=== PATIENT | male | born 1955 | race Caucasian/White ===

== ENCOUNTER 2017-05-22 21:04 | Inpatient (IN) | payer MEDICARE, MEDICAID ==
[~2017-05-22] VITALS: Ht 177.8 cm; Wt 140.6 kg
[~2017-05-22 21:04] MED LIST: CEPH500C5 PO
[2017-05-22 21:39] LABS: BASOPHILS % (AUTO) 0.2 % (0-1); EOSINOPHILS # (AUTO) 0.1 X10'3 (0-0.9); EOSINOPHILS % (AUTO) 0.9 % (0-6); HEMATOCRIT 36.6 % (42.0-52.0); HEMOGLOBIN 11.5 g/dl (14.0-17.9); LYMPHOCYTES # (AUTO) 1.7 X10'3 (1.1-4.8); LYMPHOCYTES % (AUTO) 21.5 % (21-51); MEAN CORPUSCULAR HEMOGLOBIN 30.3 PG (27.0-31.0); MEAN CORPUSCULAR HGB CONC 31.4 % (33.0-36.5); MEAN CORPUSCULAR VOLUME 96.6 FL (78-98); MEAN PLATELET VOLUME 8.7 FL (7.4-10.4); MONOCYTES # (AUTO) 0.5 X10'3 (0-0.9); MONOCYTES % (AUTO) 6.8 % (2-12); NEUTROPHILS # (AUTO) 5.6 X10'3 (1.8-7.7); NEUTROPHILS % (AUTO) 70.6 % (42-75); PLATELET COUNT 247 X10'3 (140-440); RED BLOOD COUNT 3.79 X10'6 (4.70-6.10); RED CELL DISTRIBUTION WIDTH 19.2 % (11.5-14.5)
[2017-05-22 21:51] LABS: PARTIAL THROMBOPLASTIN TIME 28 SECONDS (22-32); PROTHROMBIN TIME 10.4 SECONDS (9.0-12.0)
[2017-05-22] MEDS ORDERED: diltiazem-D5W 125mg/125ml 125 ML IV SCH (21:55)
[2017-05-22] MEDS ORDERED: diltiazem-D5W 100mg/100ml 100 ML IV SCH (22:00)
[2017-05-22 22:01] LABS: ALANINE AMINOTRANSFERASE 31 U/L (12-78); ALBUMIN 2.7 G/DL (3.4-5.0); ALBUMIN/GLOBULIN RATIO 0.6 (1.1-1.5); ALKALINE PHOSPHATASE 172 IU/L (46-116); ANION GAP 12 (8-16); ASPARTATE AMINO TRANSFERASE 32 U/L (10-37); BILIRUBIN,TOTAL 0.3 MG/DL (0.1-1.0); BLOOD UREA NITROGEN 22 MG/DL (7-18); BUN/CREATININE RATIO 12.4 (5.4-32.0); CALCIUM 8.1 MG/DL (8.5-10.1); CHLORIDE 104 MMOL/L (99-107); CREATININE 1.77 MG/DL (0.60-1.10); GLUCOSE 84 MG/DL (70-104); SODIUM 136 MMOL/L (135-145); TOTAL CARBON DIOXIDE 19.6 MMOL/L (24-32); TOTAL PROTEIN 7.1 G/DL (6.4-8.2); eGFR 39 ML/MIN
[2017-05-22 22:04] LABS: POTASSIUM 5.1 MMOL/L (3.5-5.1)
[2017-05-22] MEDS: diltiazem 5mg/ml 5ml inj. IV ONE ×2 (22:07→22:17)
[2017-05-22] MEDS ORDERED: adenosine 3mg/ml 2ml vial IV ONE (23:00)
[2017-05-22] MEDS ORDERED: digoxin 250mcg/ml 2ml ampule IV ONE (23:40)
[2017-05-23] MEDS ORDERED: digoxin 250mcg/ml 2ml ampule IV ONE (01:55)
[2017-05-23] MEDS ORDERED: amiodarone 150mg/dext, iso-os 100 ML IV ONE (02:35)
[2017-05-23] MEDS ORDERED: enoxaparin 100mg/ml syringe SUBCUT ONE (02:35)
[2017-05-23] MEDS: amiodarone/D5 450MG/250ML BAG 250 ML IV SCH (03:14)
[2017-05-23] MEDS ORDERED: furosemide 10 MG/1 ML 10ml inj IV ONE (05:40)
[2017-05-23] MEDS ORDERED: diltiazem 5mg/ml 5ml inj. IV ONE (06:55)
[2017-05-23] MEDS ORDERED: potassium Cl 20 mEq SR tablet PO PRN ×2 (07:40)
[2017-05-23] MEDS ORDERED: ondansetron/PF 4mg/2ml inj IV PRN (07:40)
[2017-05-23] MEDS ORDERED: mag hydrox/Alum hydrox/simeth 30ml oral suspension PO PRN (07:40)
[2017-05-23] MEDS ORDERED: magnesium 2GM in 50ml NS 50 ML IV PRN (07:40)
[2017-05-23] MEDS ORDERED: acetaminophen 325mg tablet PO PRN (07:40)
[2017-05-23] MEDS ORDERED: potassium Cl 40MEQ/NS 500ml 500 ML IV PRN ×2 (07:40)
[2017-05-23] MEDS ORDERED: magnesium 4gm in 100ml NS 100 ML IV PRN (07:40)
[2017-05-23] MEDS ORDERED: magnesium hydroxide 30ml (MOM) UD suspension PO PRN (07:40)
[2017-05-23] MEDS ORDERED: magnesium Cl slow-release 64mg tablet PO PRN (07:40)
[2017-05-23] MEDS: K and/or MAG REPLACEMENT MC SCH (08:00)
[2017-05-23] MEDS: DEXTROSE 5% IV SCH ×5 (08:00→11:43)
[2017-05-23] MEDS: DILTIAZEM IV SCH ×5 (08:00→11:43)
[2017-05-23] MEDS ORDERED: carvedilol 6.25mg tablet PO SCH (09:05)
[2017-05-23] MEDS ORDERED: methylPREDNISolone sod succ 125mg/2ml vial IV ONE (09:10)
[2017-05-23] MEDS ORDERED: methylPREDNISolone sod succ/PF 40mg inj. IV SCH (09:15)
[2017-05-23] MEDS ORDERED: heparin 10,000 units/1 ML INJ IV PRN (09:20)
[2017-05-23] MEDS ORDERED: heparin 10,000 units/1 ML INJ IV ONE (09:20)
[2017-05-23] MEDS: furosemide 40mg/4ml inj IV SCH ×3 (09:33→20:30)
[2017-05-23 09:40] LABS: ABG BASE EXCESS -8.8 mmol/L (-2.0-3.0); ABG HCO3 19.4 mmol/L (22.0-26.0); ABG OXYGEN SATURATION 96.2 % (95-98); ABG PCO2 (T) 51.1 mmHg (35.0-48.0); ABG PH (T) 7.197 (7.350-7.450); ABG PO2 (T) 105.8 mmHg (83-108); ALLEN'S TEST Positive; FCOHb 1.7 % (0.5-1.5); FLOW 3 L/min; FMetHb 0.2 % (0.3-1.12); FO2Hb 94.4 % (94-100); TOTAL HEMOGLOBIN 12.9 G/dl (14.0-18.0)
[2017-05-23 09:55] LABS: BASOPHILS % (AUTO) 0.3 % (0-1); EOSINOPHILS # (AUTO) 0.1 X10'3 (0-0.9); EOSINOPHILS % (AUTO) 1.8 % (0-6); HEMATOCRIT 38.5 % (42.0-52.0); HEMOGLOBIN 12.4 g/dl (14.0-17.9); LYMPHOCYTES # (AUTO) 1.4 X10'3 (1.1-4.8); LYMPHOCYTES % (AUTO) 19.1 % (21-51); MEAN CORPUSCULAR HEMOGLOBIN 30.9 PG (27.0-31.0); MEAN CORPUSCULAR HGB CONC 32.3 % (33.0-36.5); MEAN CORPUSCULAR VOLUME 95.9 FL (78-98); MEAN PLATELET VOLUME 8.8 FL (7.4-10.4); MONOCYTES # (AUTO) 0.5 X10'3 (0-0.9); MONOCYTES % (AUTO) 6.9 % (2-12); NEUTROPHILS # (AUTO) 5.3 X10'3 (1.8-7.7); NEUTROPHILS % (AUTO) 71.9 % (42-75); PLATELET COUNT 234 X10'3 (140-440); RED BLOOD COUNT 4.02 X10'6 (4.70-6.10); RED CELL DISTRIBUTION WIDTH 18.6 % (11.5-14.5); WHITE BLOOD COUNT 7.4 X10'3 (4.5-11.0)
[2017-05-23] MEDS ORDERED: ASPI-1265 PO (10:00)
[2017-05-23] MEDS ORDERED: TIOT18CA3 (10:00)
[2017-05-23] MEDS ORDERED: CARCD120C (10:00)
[2017-05-23] MEDS ORDERED: SIMV10TA6 (10:00)
[2017-05-23] MEDS ORDERED: METO100T14 (10:00)
[2017-05-23 10:04] LABS: PARTIAL THROMBOPLASTIN TIME 30 SECONDS (22-32); PROTHROMBIN TIME 10.2 SECONDS (9.0-12.0)
[2017-05-23] MEDS ORDERED: DILT120C62 PO (10:44)
[2017-05-23] MEDS ORDERED: METO-477 PO (10:45)
[2017-05-23] MEDS ORDERED: SIMV10TA2 PO (10:46)
[2017-05-23] MEDS ORDERED: TIOT18CA3 IH (10:48)
[2017-05-23 15:37] LABS: CLARITY,URINE Clear (Clear); COLOR,URINE STRAW (Yellow); GLUCOSE, URINE Negative (Neg); KETONES,URINE Negative (Neg); LEUKOCYTE ESTERASE ,URINE Negative (Neg); NITRITES, URINE Negative (Neg); OCCULT BLOOD,URINE Negative (Neg); PROTEIN,URINE Negative (Neg); UA COLLECTION TYPE CLN CATCH MIDSTREAM; UROBILINOGEN,URINE 0.2 E.U/dL (0.2-1.0)
[2017-05-23] MEDS: diltiazem 30mg tablet PO SCH ×2 (15:58→20:30)
[2017-05-23] MEDS: methylPREDNISolone sod succ 125mg/2ml vial IV SCH ×2 (16:18→23:49)
[2017-05-23 17:05] LABS: ABG HCO3 22.7 mmol/L (22.0-26.0); ABG OXYGEN SATURATION 94.8 % (95-98); ABG PCO2 (T) 47.6 mmHg (35.0-48.0); ABG PH (T) 7.296 (7.350-7.450); ABG PO2 (T) 82.5 mmHg (83-108); ALLEN'S TEST Positive; FCOHb 0.9 % (0.5-1.5); FLOW 3 L/min; FMetHb 0.4 % (0.3-1.12); FO2Hb 93.6 % (94-100); TOTAL HEMOGLOBIN 13.1 G/dl (14.0-18.0)
[2017-05-23 19:00] VITALS: BP 131/100
[2017-05-23 23:00] VITALS: BP 115/86
[2017-05-24] VITALS (13 sets, daily range): BP systolic 90–166; BP diastolic 69–123
[2017-05-24] MEDS: amiodarone/D5 450MG/250ML BAG 250 ML IV SCH (06:37)
[2017-05-24 07:46] LABS: BASOPHILS % (AUTO) 0 % (0-1); EOSINOPHILS % (AUTO) 0 % (0-6); HEMATOCRIT 38.1 % (42.0-52.0); HEMOGLOBIN 12.1 g/dl (14.0-17.9); LYMPHOCYTES # (AUTO) 0.4 X10'3 (1.1-4.8); LYMPHOCYTES % (AUTO) 3.1 % (21-51); MEAN CORPUSCULAR HEMOGLOBIN 30.3 PG (27.0-31.0); MEAN CORPUSCULAR HGB CONC 31.8 % (33.0-36.5); MEAN CORPUSCULAR VOLUME 95.3 FL (78-98); MEAN PLATELET VOLUME 9.8 FL (7.4-10.4); MONOCYTES # (AUTO) 0.1 X10'3 (0-0.9); MONOCYTES % (AUTO) 0.6 % (2-12); NEUTROPHILS # (AUTO) 11.3 X10'3 (1.8-7.7); NEUTROPHILS % (AUTO) 96.3 % (42-75); RED CELL DISTRIBUTION WIDTH 18.5 % (11.5-14.5); WHITE BLOOD COUNT 11.7 X10'3 (4.5-11.0)
[2017-05-24] MEDS ORDERED: haloperidol lactate 5mg/ml inj IM PRN (07:55)
[2017-05-24] MEDS ORDERED: LORazepam 2 mg/ml vial IV PRN (07:55)
[2017-05-24] MEDS ORDERED: dextrose 50%-water 50ml dispensing syringe IV PRN (07:55)
[2017-05-24] MEDS ORDERED: thiamine 100mg/ml 2ml inj. IV ONE (07:55)
[2017-05-24] MEDS ORDERED: haloperidol 5mg tablet PO PRN (07:55)
[2017-05-24] MEDS: methylPREDNISolone sod succ 125mg/2ml vial IV SCH ×2 (07:58→16:59)
[2017-05-24] MEDS: diltiazem 30mg tablet PO SCH ×3 (07:58→20:38)
[2017-05-24] MEDS: furosemide 40mg/4ml inj IV SCH ×3 (07:59→20:37)
[2017-05-24 08:02] LABS: ALANINE AMINOTRANSFERASE 31 U/L (12-78); ALBUMIN/GLOBULIN RATIO 0.6 (1.1-1.5); ALKALINE PHOSPHATASE 171 IU/L (46-116); ANION GAP 9 (8-16); ASPARTATE AMINO TRANSFERASE 25 U/L (10-37); BILIRUBIN,TOTAL 0.5 MG/DL (0.1-1.0); BLOOD UREA NITROGEN 29 MG/DL (7-18); BUN/CREATININE RATIO 15.9 (5.4-32.0); CALCIUM 8.6 MG/DL (8.5-10.1); CHLORIDE 100 MMOL/L (99-107); CREATININE 1.82 MG/DL (0.60-1.10); GLUCOSE 135 MG/DL (70-104); MAGNESIUM 1.7 MG/DL (1.5-2.4); PLATELET COUNT 284 X10'3 (140-440); POTASSIUM 4.3 MMOL/L (3.5-5.1); SODIUM 136 MMOL/L (135-145); TOTAL PROTEIN 8.1 G/DL (6.4-8.2); eGFR 38 ML/MIN
[2017-05-24] MEDS ORDERED: thiamine inj. 100 MG in normal saline 100ml IV soln 99 ML IV ONE (08:10)
[2017-05-24] MEDS: K and/or MAG REPLACEMENT MC SCH (08:19)
[2017-05-24] MEDS: apixaban 5mg tablet PO SCH ×2 (08:31→19:27)
[2017-05-24] MEDS: LORazepam 0.5 MG tablet PO PRN (16:58)
[2017-05-25] VITALS (10 sets, daily range): BP systolic 114–139; BP diastolic 42–85
[2017-05-25] MEDS: methylPREDNISolone sod succ 125mg/2ml vial IV SCH ×3 (00:18→15:06)
[2017-05-25] MEDS: LORazepam 0.5 MG tablet PO PRN (04:02)
[2017-05-25] MEDS: amiodarone/D5 450MG/250ML BAG 250 ML IV SCH ×2 (04:03→17:35)
[2017-05-25 05:58] LABS: BASOPHILS % (AUTO) 0 % (0-1); EOSINOPHILS % (AUTO) 0 % (0-6); HEMATOCRIT 34.8 % (42.0-52.0); HEMOGLOBIN 11.1 g/dl (14.0-17.9); LYMPHOCYTES # (AUTO) 0.3 X10'3 (1.1-4.8); LYMPHOCYTES % (AUTO) 1.7 % (21-51); MEAN CORPUSCULAR HEMOGLOBIN 30.3 PG (27.0-31.0); MEAN CORPUSCULAR HGB CONC 31.8 % (33.0-36.5); MEAN CORPUSCULAR VOLUME 95.4 FL (78-98); MONOCYTES # (AUTO) 0.1 X10'3 (0-0.9); MONOCYTES % (AUTO) 0.8 % (2-12); NEUTROPHILS # (AUTO) 15.3 X10'3 (1.8-7.7); NEUTROPHILS % (AUTO) 97.5 % (42-75); PLATELET COUNT 283 X10'3 (140-440); RED BLOOD COUNT 3.65 X10'6 (4.70-6.10); WHITE BLOOD COUNT 15.7 X10'3 (4.5-11.0)
[2017-05-25 06:23] LABS: ALANINE AMINOTRANSFERASE 26 U/L (12-78); ALBUMIN 2.8 G/DL (3.4-5.0); ALBUMIN/GLOBULIN RATIO 0.7 (1.1-1.5); ALKALINE PHOSPHATASE 136 IU/L (46-116); ANION GAP 11 (8-16); ASPARTATE AMINO TRANSFERASE 18 U/L (10-37); BILIRUBIN,TOTAL 0.4 MG/DL (0.1-1.0); BLOOD UREA NITROGEN 34 MG/DL (7-18); BUN/CREATININE RATIO 19.7 (5.4-32.0); CALCIUM 7.9 MG/DL (8.5-10.1); CHLORIDE 98 MMOL/L (99-107); CREATININE 1.73 MG/DL (0.60-1.10); GLUCOSE 139 MG/DL (70-104); MAGNESIUM 1.5 MG/DL (1.5-2.4); POTASSIUM 3.9 MMOL/L (3.5-5.1); SODIUM 137 MMOL/L (135-145); TOTAL CARBON DIOXIDE 28.4 MMOL/L (24-32); eGFR 40 ML/MIN
[2017-05-25] MEDS: K and/or MAG REPLACEMENT MC SCH (06:38)
[2017-05-25] MEDS: diltiazem 30mg tablet PO SCH ×3 (07:43→21:33)
[2017-05-25] MEDS: furosemide 40mg/4ml inj IV SCH ×3 (07:43→21:33)
[2017-05-25] MEDS: apixaban 5mg tablet PO SCH ×2 (07:43→19:49)
[2017-05-25] MEDS: levalbuterol 0.63mg/3ml nebule IH SCH ×2 (14:18→20:26)
[2017-05-25] MEDS: carvedilol 6.25mg tablet PO SCH (19:49)
[2017-05-26] VITALS (10 sets, daily range): BP systolic 105–141; BP diastolic 51–98
[2017-05-26] MEDS: methylPREDNISolone sod succ 125mg/2ml vial IV SCH ×3 (00:22→16:00)
[2017-05-26] MEDS: levalbuterol 0.63mg/3ml nebule IH SCH ×2 (03:29→14:47)
[2017-05-26 05:06] LABS: BASOPHILS % (AUTO) 0 % (0-1); EOSINOPHILS # (AUTO) 0.3 X10'3 (0-0.9); EOSINOPHILS % (AUTO) 1.8 % (0-6); HEMATOCRIT 35.2 % (42.0-52.0); HEMOGLOBIN 11.2 g/dl (14.0-17.9); LYMPHOCYTES # (AUTO) 0.2 X10'3 (1.1-4.8); LYMPHOCYTES % (AUTO) 1.3 % (21-51); MEAN CORPUSCULAR HEMOGLOBIN 30.1 PG (27.0-31.0); MEAN CORPUSCULAR VOLUME 94.3 FL (78-98); MEAN PLATELET VOLUME 8.9 FL (7.4-10.4); MONOCYTES # (AUTO) 0.2 X10'3 (0-0.9); MONOCYTES % (AUTO) 1.1 % (2-12); NEUTROPHILS # (AUTO) 15.6 X10'3 (1.8-7.7); NEUTROPHILS % (AUTO) 95.8 % (42-75); PLATELET COUNT 296 X10'3 (140-440); RED BLOOD COUNT 3.73 X10'6 (4.70-6.10); RED CELL DISTRIBUTION WIDTH 18.7 % (11.5-14.5); WHITE BLOOD COUNT 16.3 X10'3 (4.5-11.0)
[2017-05-26 05:40] LABS: ALANINE AMINOTRANSFERASE 36 U/L (12-78); ALBUMIN/GLOBULIN RATIO 0.7 (1.1-1.5); ALKALINE PHOSPHATASE 131 IU/L (46-116); ANION GAP 9 (8-16); ASPARTATE AMINO TRANSFERASE 26 U/L (10-37); BILIRUBIN,TOTAL 0.4 MG/DL (0.1-1.0); BLOOD UREA NITROGEN 45 MG/DL (7-18); BUN/CREATININE RATIO 23.8 (5.4-32.0); CALCIUM 7.5 MG/DL (8.5-10.1); CHLORIDE 98 MMOL/L (99-107); CREATININE 1.89 MG/DL (0.60-1.10); GLUCOSE 156 MG/DL (70-104); MAGNESIUM 1.4 MG/DL (1.5-2.4); POTASSIUM 3.5 MMOL/L (3.5-5.1); SODIUM 140 MMOL/L (135-145); TOTAL CARBON DIOXIDE 32.7 MMOL/L (24-32); TOTAL PROTEIN 7.1 G/DL (6.4-8.2); eGFR 36 ML/MIN
[2017-05-26] MEDS: furosemide 40mg/4ml inj IV SCH ×2 (07:29→13:15)
[2017-05-26] MEDS: carvedilol 6.25mg tablet PO SCH (07:29)
[2017-05-26] MEDS: apixaban 5mg tablet PO SCH (07:29)
[2017-05-26] MEDS: diltiazem 30mg tablet PO SCH ×2 (07:30→13:15)
[2017-05-26] MEDS ORDERED: LORazepam 1 MG tablet PO PRN (07:55)
[2017-05-26] MEDS ORDERED: LORazepam 2 mg/ml vial IV PRN (07:55)
[2017-05-26] MEDS: K and/or MAG REPLACEMENT MC SCH (08:00)
[2017-05-26] MEDS: amiodarone/D5 450MG/250ML BAG 250 ML IV SCH (10:05)
[2017-05-26] MEDS ORDERED: amiodarone 200mg tablet PO SCH (10:33)
[2017-05-26] MEDS ORDERED: APIX5TAB3 PO (12:10)
[2017-05-26] MEDS ORDERED: HCTZ25T PO ×2 (12:10)
[2017-05-26] MEDS ORDERED: FURO-149 PO (12:10)
[2017-05-26] MEDS ORDERED: CARV6.253 PO (12:10)
[2017-05-26] MEDS ORDERED: METH4TAB81 PO (12:10)
[2017-05-26] MEDS ORDERED: AMIO200T57 PO (12:10)
[2017-05-26] MEDS ORDERED: LEVA0.6319 IH (12:10)
[2017-05-26] MEDS ORDERED: DILT30TA5 PO (12:10)
[2017-05-28] MEDS ORDERED: LORazepam 2 mg/ml vial IV PRN (07:55)
[2017-05-28] MEDS ORDERED: LORazepam 1 MG tablet PO PRN (07:55)
== END 2017-05-26 16:27 | disposition home health service (06) | DRG 308 ==
LOC: ER 21:05 → ED HOLD 05-23 07:39 → EDBEDREQ 05-23 16:04 → PCU 3S 05-23 16:40
PROVIDERS: ADMIT Internal Medicine; ATTEND Internal Medicine
PROC: 5A09357 Assistance with Respiratory Ventilation, Less than 24 Consecutive Hours, Continuous Positive Airway Pressure (ICD-10-PCS; principal; 2017-05-23)
PROC: CB121ZZ Planar Nuclear Medicine Imaging of Lungs and Bronchi using Technetium 99m (Tc-99m) (ICD-10-PCS; 2017-05-23)
DX: I48.92 Unspecified atrial flutter (principal); I50.23 Acute on chronic systolic (congestive) heart failure; E87.4 Mixed disorder of acid-base balance; Z95.1 Presence of aortocoronary bypass graft; I95.9 Hypotension, unspecified; Z68.41 Body mass index [BMI] 40.0-44.9, adult; J44.1 Chronic obstructive pulmonary disease with (acute) exacerbation; I48.2 Chronic atrial fibrillation; E11.9 Type 2 diabetes mellitus without complications; E66.9 Obesity, unspecified; F17.200 Nicotine dependence, unspecified, uncomplicated; I25.10 Atherosclerotic heart disease of native coronary artery without angina pectoris; Z88.8 Allergy status to other drugs, medicaments and biological substances; Z79.899 Other long term (current) drug therapy; Z79.82 Long term (current) use of aspirin
CPT/HCPCS: 36415; 36600; 71045; 78582; 80053; 81003; 82803; 82948; 83735; 83880; 84484; 85018; 85025; 85610; 85730; 87070; 93005; 93306; 93970; 94640; 94660; 94760; 96365; 96372; 96375; 99291; A6212; A6213; A9539; A9540; J0153; J0282; J1160; J1644; J1650; J1940; J2920; J2930; J3411; J3490; J7030; J7614

== ENCOUNTER 2017-10-02 16:51 | Emergency (ER) | payer MEDICARE, MEDICAID ==
[~2017-10-02] VITALS: Ht 604 cm; Wt 148.2 kg
[~2017-10-02 16:51] MED LIST changes: +AMIO200T40 PO; +APIX5TAB3 PO; +ASPI-1265 PO; +CARV6.253 PO; -CEPH500C5 PO; +DILT30TA5 PO; +FURO-149 PO; +GABA-532 PO; +HCTZ25T PO; +LEVA0.6319 IH; +METO-477 PO; +SIMV10TA2 PO; +TIOT18CA3 IH
[2017-10-02 17:32] LABS: HEMATOCRIT 28.5 % (42.0-52.0); HEMOGLOBIN 8.5 g/dl (14.0-17.9); MEAN CORPUSCULAR HEMOGLOBIN 26.5 PG (27.0-31.0); MEAN CORPUSCULAR HGB CONC 29.8 % (33.0-36.5); MEAN CORPUSCULAR VOLUME 88.9 FL (78-98); MEAN PLATELET VOLUME 8.9 FL (7.4-10.4); PLATELET COUNT 316 X10'3 (140-440); RED BLOOD COUNT 3.21 X10'6 (4.70-6.10); RED CELL DISTRIBUTION WIDTH 20.8 % (11.5-14.5); WHITE BLOOD COUNT 7.1 X10'3 (4.5-11.0)
[2017-10-02 17:42] LABS: INR 1.1 INR; PARTIAL THROMBOPLASTIN TIME 29 SECONDS (22-32); PROTHROMBIN TIME 10.9 SECONDS (9.0-12.0)
[2017-10-02 17:56] LABS: TOTAL CELLS COUNTED 100
[2017-10-02 17:57] LABS: ANISOCYTOSIS 3+; HYPOCHROMASIA 1+; PLATELET ESTIMATE NORMAL; POIKILOCYTOSIS 1+; POLYCHROMASIA 1+
[2017-10-02 18:06] LABS: ALANINE AMINOTRANSFERASE 16 U/L (12-78); ALBUMIN/GLOBULIN RATIO 0.8 (1.1-1.5); ALKALINE PHOSPHATASE 198 IU/L (46-116); ANION GAP 9 (8-16); ASPARTATE AMINO TRANSFERASE 20 U/L (10-37); BILIRUBIN,TOTAL 0.4 MG/DL (0.1-1.0); BLOOD UREA NITROGEN 26 MG/DL (7-18); BUN/CREATININE RATIO 11.8 (5.4-32.0); CALCIUM 8.1 MG/DL (8.5-10.1); CHLORIDE 105 MMOL/L (99-107); GLUCOSE 86 MG/DL (70-104); POTASSIUM 3.9 MMOL/L (3.5-5.1); SODIUM 142 MMOL/L (135-145); TOTAL PROTEIN 6.7 G/DL (6.4-8.2); eGFR 30 ML/MIN
[2017-10-02 18:13] LABS: MAGNESIUM 1.9 MG/DL (1.5-2.4)
[2017-10-02] MEDS ORDERED: furosemide 10 MG/1 ML 10ml inj IV ONE (18:45)
[2017-10-02 18:57] VITALS: BP 117/62
== END 2017-10-02 19:41 | disposition home or self-care (01) ==
LOC: ER 16:52
DX: I50.9 Heart failure, unspecified (principal); I48.91 Unspecified atrial fibrillation; I25.10 Atherosclerotic heart disease of native coronary artery without angina pectoris; R22.33 Localized swelling, mass and lump, upper limb, bilateral; R22.43 Localized swelling, mass and lump, lower limb, bilateral; Z95.1 Presence of aortocoronary bypass graft; Z88.8 Allergy status to other drugs, medicaments and biological substances; Z79.82 Long term (current) use of aspirin; Z79.899 Other long term (current) drug therapy
CPT/HCPCS: 36415; 71045; 80053; 80162; 83735; 83880; 84484; 85025; 85610; 85730; 93005; 96374; 99285; J1940; J7030

== ENCOUNTER 2017-10-07 12:49 | Inpatient (IN) | payer MEDICARE, MEDICAID ==
[~2017-10-07] VITALS: Ht 177.8 cm; Wt 145.0 kg
[2017-10-07] MEDS ORDERED: furosemide 40mg/4ml inj IV ONE (13:05)
[2017-10-07 13:26] LABS: BASOPHILS # (AUTO) 0.1 X10'3 (0-0.2); BASOPHILS % (AUTO) 0.9 % (0-1); EOSINOPHILS # (AUTO) 0.2 X10'3 (0-0.9); EOSINOPHILS % (AUTO) 3.1 % (0-6); HEMATOCRIT 29.2 % (42.0-52.0); LYMPHOCYTES # (AUTO) 1.2 X10'3 (1.1-4.8); LYMPHOCYTES % (AUTO) 14.7 % (21-51); MEAN CORPUSCULAR HEMOGLOBIN 27.3 PG (27.0-31.0); MEAN PLATELET VOLUME 8.4 FL (7.4-10.4); MONOCYTES # (AUTO) 0.6 X10'3 (0-0.9); MONOCYTES % (AUTO) 7.6 % (2-12); NEUTROPHILS # (AUTO) 5.8 X10'3 (1.8-7.7); NEUTROPHILS % (AUTO) 73.7 % (42-75); PLATELET COUNT 324 X10'3 (140-440); RED BLOOD COUNT 3.31 X10'6 (4.70-6.10); WHITE BLOOD COUNT 7.8 X10'3 (4.5-11.0)
[2017-10-07 13:35] LABS: INR 1.4 INR; PARTIAL THROMBOPLASTIN TIME 38 SECONDS (22-32); PROTHROMBIN TIME 13.9 SECONDS (9.0-12.0)
[2017-10-07 13:38] LABS: CLARITY,URINE CLEAR (Clear); COLOR,URINE STRAW (Yellow); GLUCOSE, URINE NEGATIVE (Neg); KETONES,URINE NEGATIVE (Neg); LEUKOCYTE ESTERASE ,URINE NEGATIVE (Neg); NITRITES, URINE NEGATIVE (Neg); OCCULT BLOOD,URINE NEGATIVE (Neg); PH,URINE 5.5 (4.8-8.0); PROTEIN,URINE NEGATIVE (Neg); UROBILINOGEN,URINE 0.2 E.U/dL (0.2-1.0)
[2017-10-07 13:39] LABS: ALANINE AMINOTRANSFERASE 10 U/L (12-78); ALBUMIN 3.2 G/DL (3.4-5.0); ALBUMIN/GLOBULIN RATIO 0.7 (1.1-1.5); ALKALINE PHOSPHATASE 209 IU/L (46-116); ANION GAP 9 (8-16); ASPARTATE AMINO TRANSFERASE 14 U/L (10-37); BILIRUBIN,TOTAL 0.4 MG/DL (0.1-1.0); BLOOD UREA NITROGEN 39 MG/DL (7-18); BUN/CREATININE RATIO 16.8 (5.4-32.0); CALCIUM 8.2 MG/DL (8.5-10.1); CHLORIDE 101 MMOL/L (99-107); CREATININE 2.32 MG/DL (0.60-1.10); GLUCOSE 101 MG/DL (70-104); POTASSIUM 3.2 MMOL/L (3.5-5.1); SODIUM 143 MMOL/L (135-145); TOTAL CARBON DIOXIDE 33.1 MMOL/L (24-32); TOTAL PROTEIN 7.5 G/DL (6.4-8.2); eGFR 28 ML/MIN
[2017-10-07 13:40] LABS: UA COLLECTION TYPE URINAL
[2017-10-07 14:20] LABS: PLATELET ESTIMATE NORMAL
[2017-10-07 14:21] LABS: ANISOCYTOSIS 3+; POIKILOCYTOSIS 1+
[2017-10-07 14:22] LABS: HYPOCHROMASIA 2+; POLYCHROMASIA FEW
[2017-10-07 14:23] LABS: ACANTHOCYTES FEW; LARGE PLATELETS FEW
[2017-10-07 14:24] LABS: SCHISTOCYTES FEW
[2017-10-07 14:25] LABS: MICROCYTOSIS FEW
[2017-10-07 14:47] LABS: ELLIPTOCYTES FEW; STOMATOCYTES FEW
[2017-10-07] MEDS ORDERED: mag hydrox/Alum hydrox/simeth 30ml oral suspension PO PRN (15:10)
[2017-10-07] MEDS: potassium Cl 20 mEq SR tablet PO SCH (17:49)
[2017-10-07 19:50] VITALS: BP 117/72
[2017-10-07] MEDS: carvedilol 6.25mg tablet PO SCH (20:09)
[2017-10-07] MEDS: furosemide 40mg/4ml inj IV SCH (20:09)
[2017-10-07] MEDS: amiodarone 200mg tablet PO SCH (20:09)
[2017-10-07] MEDS: apixaban 5mg tablet PO SCH (20:26)
[2017-10-07 23:00] VITALS: BP 108/73
[2017-10-08 02:04] LABS: BASOPHILS % (AUTO) 0.2 % (0-1); EOSINOPHILS # (AUTO) 0.2 X10'3 (0-0.9); EOSINOPHILS % (AUTO) 3.2 % (0-6); HEMATOCRIT 27.8 % (42.0-52.0); HEMOGLOBIN 8.5 g/dl (14.0-17.9); LYMPHOCYTES # (AUTO) 0.9 X10'3 (1.1-4.8); LYMPHOCYTES % (AUTO) 13.1 % (21-51); MEAN CORPUSCULAR HEMOGLOBIN 27.1 PG (27.0-31.0); MEAN CORPUSCULAR HGB CONC 30.6 % (33.0-36.5); MEAN CORPUSCULAR VOLUME 88.6 FL (78-98); MONOCYTES # (AUTO) 0.7 X10'3 (0-0.9); MONOCYTES % (AUTO) 9.6 % (2-12); NEUTROPHILS # (AUTO) 5.3 X10'3 (1.8-7.7); NEUTROPHILS % (AUTO) 73.9 % (42-75); PLATELET COUNT 297 X10'3 (140-440); RED BLOOD COUNT 3.14 X10'6 (4.70-6.10); WHITE BLOOD COUNT 7.2 X10'3 (4.5-11.0)
[2017-10-08 02:25] LABS: ALBUMIN 2.9 G/DL (3.4-5.0); ANION GAP 3 (8-16); BLOOD UREA NITROGEN 37 MG/DL (7-18); BUN/CREATININE RATIO 17.8 (5.4-32.0); CALCIUM 8.3 MG/DL (8.5-10.1); CHLORIDE 101 MMOL/L (99-107); CREATININE 2.08 MG/DL (0.60-1.10); GLUCOSE 93 MG/DL (70-104); POTASSIUM 3.3 MMOL/L (3.5-5.1); SODIUM 140 MMOL/L (135-145); TOTAL CARBON DIOXIDE 36.3 MMOL/L (24-32); eGFR 32 ML/MIN
[2017-10-08 02:46] LABS: ANISOCYTOSIS 3+; HYPOCHROMASIA 1+; MICROCYTOSIS 1+; PLATELET ESTIMATE NORMAL; POLYCHROMASIA 1+; SPHEROCYTES 1+; TARGET CELLS 2+
[2017-10-08 03:00] VITALS: BP 109/69
[2017-10-08 06:00] VITALS: BP 102/65
[2017-10-08] MEDS: furosemide 40mg/4ml inj IV SCH ×2 (08:42→19:30)
[2017-10-08] MEDS: carvedilol 6.25mg tablet PO SCH ×2 (08:42→19:30)
[2017-10-08] MEDS: potassium Cl 20 mEq SR tablet PO SCH (08:42)
[2017-10-08] MEDS: apixaban 5mg tablet PO SCH ×2 (08:43→19:30)
[2017-10-08] MEDS: amiodarone 200mg tablet PO SCH ×2 (08:43→19:30)
[2017-10-08] MEDS ORDERED: POTA10TA52 (09:58)
[2017-10-08] MEDS ORDERED: HYDR-569 PO (09:58)
[2017-10-08] MEDS ORDERED: OMEP40CA37 PO (09:58)
[2017-10-08 11:00] VITALS: BP 120/88
[2017-10-08] MEDS ORDERED: furosemide 40mg tablet PO SCH (11:00)
[2017-10-08] MEDS: pantoprazole 40mg Tablet.DR PO SCH (11:30)
[2017-10-08] MEDS: diltiazem 30mg tablet PO SCH ×2 (13:31→20:58)
[2017-10-08] MEDS: gabapentin 300mg capsule PO SCH ×2 (13:31→20:58)
[2017-10-08] MEDS: aspirin 81mg tab.chew PO SCH (13:31)
[2017-10-08] MEDS: ipratropium 0.5 MG/2.5ML nebule IH SCH ×2 (14:43→20:08)
[2017-10-08] MEDS: levalbuterol 0.63mg/3ml nebule IH SCH ×2 (14:44→20:08)
[2017-10-08 15:00] VITALS: BP 111/71
[2017-10-08 19:00] VITALS: BP 96/62
[2017-10-08] MEDS ORDERED: potassium Cl 40MEQ/NS 500ml 500 ML IV PRN ×2 (19:25)
[2017-10-08] MEDS ORDERED: potassium Cl 20 mEq SR tablet PO PRN (19:25)
[2017-10-08] MEDS: potassium Cl 20 mEq SR tablet PO PRN (20:57)
[2017-10-08] MEDS: atorvastatin 10mg tablet PO SCH (20:57)
[2017-10-08 23:00] VITALS: BP 115/79
[2017-10-08] MEDS: HYDROcodone/acetaminophen 5mg/325mg tablet PO PRN (23:04)
[2017-10-09] MEDS: potassium Cl 20 mEq SR tablet PO PRN ×2 (01:26→19:59)
[2017-10-09 03:00] VITALS: BP 102/72
[2017-10-09] MEDS: ipratropium 0.5 MG/2.5ML nebule IH SCH ×4 (03:06→20:11)
[2017-10-09] MEDS: levalbuterol 0.63mg/3ml nebule IH SCH ×4 (03:06→20:11)
[2017-10-09 05:37] LABS: BASOPHILS % (AUTO) 0.3 % (0-1); EOSINOPHILS # (AUTO) 0.2 X10'3 (0-0.9); EOSINOPHILS % (AUTO) 3.1 % (0-6); HEMATOCRIT 26.2 % (42.0-52.0); HEMOGLOBIN 8.1 g/dl (14.0-17.9); LYMPHOCYTES # (AUTO) 1.2 X10'3 (1.1-4.8); LYMPHOCYTES % (AUTO) 16.9 % (21-51); MEAN CORPUSCULAR HGB CONC 30.9 % (33.0-36.5); MEAN CORPUSCULAR VOLUME 87.3 FL (78-98); MEAN PLATELET VOLUME 8.7 FL (7.4-10.4); MONOCYTES # (AUTO) 0.7 X10'3 (0-0.9); MONOCYTES % (AUTO) 10.1 % (2-12); NEUTROPHILS # (AUTO) 4.9 X10'3 (1.8-7.7); NEUTROPHILS % (AUTO) 69.6 % (42-75); PLATELET COUNT 284 X10'3 (140-440); WHITE BLOOD COUNT 7.1 X10'3 (4.5-11.0)
[2017-10-09 05:51] LABS: ALBUMIN 2.9 G/DL (3.4-5.0); ANION GAP 4 (8-16); BLOOD UREA NITROGEN 33 MG/DL (7-18); BUN/CREATININE RATIO 18.5 (5.4-32.0); CALCIUM 8.7 MG/DL (8.5-10.1); CHLORIDE 99 MMOL/L (99-107); CREATININE 1.78 MG/DL (0.60-1.10); GLUCOSE 81 MG/DL (70-104); POTASSIUM 3.2 MMOL/L (3.5-5.1); SODIUM 142 MMOL/L (135-145); TOTAL CARBON DIOXIDE 39.2 MMOL/L (24-32); eGFR 39 ML/MIN
[2017-10-09 06:00] VITALS: BP 112/70
[2017-10-09] MEDS: aspirin 81mg tab.chew PO SCH (07:52)
[2017-10-09] MEDS: furosemide 40mg/4ml inj IV SCH ×2 (07:52→19:58)
[2017-10-09] MEDS: gabapentin 300mg capsule PO SCH ×3 (07:53→19:58)
[2017-10-09] MEDS: diltiazem 30mg tablet PO SCH ×3 (07:53→19:59)
[2017-10-09] MEDS: apixaban 5mg tablet PO SCH ×2 (07:53→19:58)
[2017-10-09] MEDS: pantoprazole 40mg Tablet.DR PO SCH (07:54)
[2017-10-09] MEDS: potassium Cl 20 mEq SR tablet PO SCH (07:54)
[2017-10-09] MEDS: amiodarone 200mg tablet PO SCH ×2 (07:55→19:58)
[2017-10-09] MEDS: carvedilol 6.25mg tablet PO SCH ×2 (07:55→19:58)
[2017-10-09 11:00] VITALS: BP 112/70
[2017-10-09 15:00] VITALS: BP 112/70
[2017-10-09 19:00] VITALS: BP 107/54
[2017-10-09] MEDS: HYDROcodone/acetaminophen 5mg/325mg tablet PO PRN (19:58)
[2017-10-09] MEDS: atorvastatin 10mg tablet PO SCH (19:59)
[2017-10-09 23:00] VITALS: BP 93/59
[2017-10-10] MEDS: potassium Cl 20 mEq SR tablet PO PRN ×2 (00:55→05:08)
[2017-10-10] MEDS: HYDROcodone/acetaminophen 5mg/325mg tablet PO PRN (00:56)
[2017-10-10 03:00] VITALS: BP 125/84
[2017-10-10] MEDS: levalbuterol 0.63mg/3ml nebule IH SCH ×4 (03:15→20:56)
[2017-10-10] MEDS: ipratropium 0.5 MG/2.5ML nebule IH SCH ×4 (03:15→20:56)
[2017-10-10 05:50] LABS: BASOPHILS % (AUTO) 0.1 % (0-1); EOSINOPHILS # (AUTO) 0.3 X10'3 (0-0.9); EOSINOPHILS % (AUTO) 3.4 % (0-6); HEMATOCRIT 26.8 % (42.0-52.0); HEMOGLOBIN 8.2 g/dl (14.0-17.9); LYMPHOCYTES # (AUTO) 0.9 X10'3 (1.1-4.8); LYMPHOCYTES % (AUTO) 8.8 % (21-51); MEAN CORPUSCULAR HEMOGLOBIN 26.7 PG (27.0-31.0); MEAN CORPUSCULAR HGB CONC 30.5 % (33.0-36.5); MEAN CORPUSCULAR VOLUME 87.4 FL (78-98); MONOCYTES # (AUTO) 1.1 X10'3 (0-0.9); MONOCYTES % (AUTO) 10.7 % (2-12); NEUTROPHILS # (AUTO) 7.7 X10'3 (1.8-7.7); PLATELET COUNT 292 X10'3 (140-440); RED BLOOD COUNT 3.06 X10'6 (4.70-6.10); RED CELL DISTRIBUTION WIDTH 22.3 % (11.5-14.5)
[2017-10-10 06:00] VITALS: BP 103/59
[2017-10-10 06:05] LABS: ANION GAP 2 (8-16); BLOOD UREA NITROGEN 31 MG/DL (7-18); BUN/CREATININE RATIO 18.5 (5.4-32.0); CALCIUM 8.9 MG/DL (8.5-10.1); CHLORIDE 97 MMOL/L (99-107); CREATININE 1.68 MG/DL (0.60-1.10); GLUCOSE 103 MG/DL (70-104); POTASSIUM 3.7 MMOL/L (3.5-5.1); SODIUM 139 MMOL/L (135-145); TOTAL CARBON DIOXIDE 39.9 MMOL/L (24-32); eGFR 41 ML/MIN
[2017-10-10 07:33] LABS: ANISOCYTOSIS 3+; PLATELET ESTIMATE NORMAL; TARGET CELLS 1+
[2017-10-10 07:34] LABS: HYPOCHROMASIA 2+
[2017-10-10 07:35] LABS: ELLIPTOCYTES FEW
[2017-10-10 07:36] LABS: POLYCHROMASIA 2+
[2017-10-10] MEDS: potassium Cl 20 mEq SR tablet PO SCH (07:58)
[2017-10-10] MEDS: furosemide 40mg/4ml inj IV SCH ×2 (07:58→20:06)
[2017-10-10] MEDS: amiodarone 200mg tablet PO SCH ×2 (07:58→20:06)
[2017-10-10] MEDS: pantoprazole 40mg Tablet.DR PO SCH (07:58)
[2017-10-10] MEDS: diltiazem 30mg tablet PO SCH ×3 (07:58→20:07)
[2017-10-10] MEDS: apixaban 5mg tablet PO SCH ×2 (07:58→20:07)
[2017-10-10] MEDS: carvedilol 6.25mg tablet PO SCH ×2 (07:58→20:07)
[2017-10-10] MEDS: aspirin 81mg tab.chew PO SCH (07:58)
[2017-10-10] MEDS: gabapentin 300mg capsule PO SCH ×3 (07:58→20:06)
[2017-10-10 11:00] VITALS: BP 153/100
[2017-10-10] MEDS: acetaminophen 325mg tablet PO PRN ×2 (11:38→22:58)
[2017-10-10 15:00] VITALS: BP 111/65
[2017-10-10 19:00] VITALS: BP 126/78
[2017-10-10] MEDS: atorvastatin 10mg tablet PO SCH (20:07)
[2017-10-10 23:00] VITALS: BP 97/61
[2017-10-11] MEDS: cefTRIAXone 1g/NS 100ml IVPB 100 ML IV SCH ×2 (01:00→08:12)
[2017-10-11 02:01] LABS: CLARITY,URINE CLEAR (Clear); COLOR,URINE YELLOW (Yellow); GLUCOSE, URINE NEGATIVE (Neg); KETONES,URINE NEGATIVE (Neg); LEUKOCYTE ESTERASE ,URINE NEGATIVE (Neg); NITRITES, URINE NEGATIVE (Neg); OCCULT BLOOD,URINE NEGATIVE (Neg); PROTEIN,URINE NEGATIVE (Neg); UROBILINOGEN,URINE 0.2 E.U/dL (0.2-1.0)
[2017-10-11 02:13] LABS: UA COLLECTION TYPE VOIDED
[2017-10-11] MEDS: ipratropium 0.5 MG/2.5ML nebule IH SCH ×4 (02:22→19:59)
[2017-10-11] MEDS: levalbuterol 0.63mg/3ml nebule IH SCH ×4 (02:22→19:59)
[2017-10-11 03:00] VITALS: BP 112/53
[2017-10-11 05:20] LABS: BASOPHILS % (AUTO) 0 % (0-1); EOSINOPHILS # (AUTO) 0.1 X10'3 (0-0.9); EOSINOPHILS % (AUTO) 1.1 % (0-6); HEMATOCRIT 27.7 % (42.0-52.0); HEMOGLOBIN 8.5 g/dl (14.0-17.9); LYMPHOCYTES # (AUTO) 0.5 X10'3 (1.1-4.8); LYMPHOCYTES % (AUTO) 6.5 % (21-51); MEAN CORPUSCULAR HEMOGLOBIN 26.8 PG (27.0-31.0); MEAN CORPUSCULAR HGB CONC 30.8 % (33.0-36.5); MEAN CORPUSCULAR VOLUME 86.9 FL (78-98); MEAN PLATELET VOLUME 8.9 FL (7.4-10.4); MONOCYTES # (AUTO) 0.8 X10'3 (0-0.9); MONOCYTES % (AUTO) 9.5 % (2-12); NEUTROPHILS # (AUTO) 6.8 X10'3 (1.8-7.7); NEUTROPHILS % (AUTO) 82.9 % (42-75); PLATELET COUNT 278 X10'3 (140-440); RED BLOOD COUNT 3.19 X10'6 (4.70-6.10); RED CELL DISTRIBUTION WIDTH 22.3 % (11.5-14.5); WHITE BLOOD COUNT 8.2 X10'3 (4.5-11.0)
[2017-10-11 06:26] LABS: ANION GAP 4 (8-16); BLOOD UREA NITROGEN 31 MG/DL (7-18); BUN/CREATININE RATIO 17.7 (5.4-32.0); CALCIUM 8.3 MG/DL (8.5-10.1); CHLORIDE 93 MMOL/L (99-107); CREATININE 1.75 MG/DL (0.60-1.10); GLUCOSE 95 MG/DL (70-104); POTASSIUM 4.2 MMOL/L (3.5-5.1); SODIUM 135 MMOL/L (135-145); TOTAL CARBON DIOXIDE 37.9 MMOL/L (24-32); eGFR 39 ML/MIN
[2017-10-11 07:00] VITALS: BP 118/66
[2017-10-11 07:23] LABS: ANISOCYTOSIS 3+; PLATELET ESTIMATE NORMAL
[2017-10-11 07:24] LABS: ELLIPTOCYTES FEW; HYPOCHROMASIA 2+; POLYCHROMASIA 2+; SCHISTOCYTES FEW; TARGET CELLS 1+
[2017-10-11] MEDS: pantoprazole 40mg Tablet.DR PO SCH (08:00)
[2017-10-11] MEDS: furosemide 40mg/4ml inj IV SCH ×2 (08:10→21:07)
[2017-10-11] MEDS: potassium Cl 20 mEq SR tablet PO SCH (08:11)
[2017-10-11] MEDS: aspirin 81mg tab.chew PO SCH (08:11)
[2017-10-11] MEDS: diltiazem 30mg tablet PO SCH ×3 (08:11→22:57)
[2017-10-11] MEDS: acetaminophen 325mg tablet PO PRN (08:11)
[2017-10-11] MEDS: carvedilol 6.25mg tablet PO SCH ×2 (08:12→21:08)
[2017-10-11] MEDS: apixaban 5mg tablet PO SCH ×2 (08:12→21:09)
[2017-10-11] MEDS: amiodarone 200mg tablet PO SCH ×2 (08:12→21:09)
[2017-10-11] MEDS: gabapentin 300mg capsule PO SCH ×3 (08:12→21:08)
[2017-10-11 11:00] VITALS: BP 88/50
[2017-10-11 15:00] VITALS: BP 105/63
[2017-10-11 19:00] VITALS: BP 133/83
[2017-10-11] MEDS: lactobacillus rhamnosus 10,000 MMU CELLS/CAPSULE PO SCH (21:08)
[2017-10-11] MEDS: atorvastatin 10mg tablet PO SCH (21:08)
[2017-10-11 23:00] VITALS: BP 122/77
[2017-10-12] MEDS: levalbuterol 0.63mg/3ml nebule IH SCH ×4 (02:34→20:51)
[2017-10-12] MEDS: ipratropium 0.5 MG/2.5ML nebule IH SCH ×4 (02:34→20:50)
[2017-10-12 03:00] VITALS: BP 119/80
[2017-10-12 06:22] LABS: ANION GAP 5 (8-16); BLOOD UREA NITROGEN 38 MG/DL (7-18); BUN/CREATININE RATIO 21.8 (5.4-32.0); CALCIUM 8.4 MG/DL (8.5-10.1); CHLORIDE 91 MMOL/L (99-107); CREATININE 1.74 MG/DL (0.60-1.10); GLUCOSE 99 MG/DL (70-104); POTASSIUM 4.1 MMOL/L (3.5-5.1); SODIUM 133 MMOL/L (135-145); TOTAL CARBON DIOXIDE 37.1 MMOL/L (24-32); eGFR 40 ML/MIN
[2017-10-12 06:36] LABS: BASOPHILS % (AUTO) 0.3 % (0-1); EOSINOPHILS # (AUTO) 0.2 X10'3 (0-0.9); EOSINOPHILS % (AUTO) 2.1 % (0-6); HEMATOCRIT 26.4 % (42.0-52.0); HEMOGLOBIN 8.1 g/dl (14.0-17.9); LYMPHOCYTES # (AUTO) 0.8 X10'3 (1.1-4.8); MEAN CORPUSCULAR HEMOGLOBIN 26.3 PG (27.0-31.0); MEAN CORPUSCULAR HGB CONC 30.5 % (33.0-36.5); MEAN CORPUSCULAR VOLUME 86.1 FL (78-98); MONOCYTES # (AUTO) 0.8 X10'3 (0-0.9); MONOCYTES % (AUTO) 9.6 % (2-12); NEUTROPHILS # (AUTO) 6.9 X10'3 (1.8-7.7); PLATELET COUNT 268 X10'3 (140-440); RED BLOOD COUNT 3.07 X10'6 (4.70-6.10); RED CELL DISTRIBUTION WIDTH 22.7 % (11.5-14.5); WHITE BLOOD COUNT 8.8 X10'3 (4.5-11.0)
[2017-10-12 07:00] VITALS: BP 116/73
[2017-10-12] MEDS: carvedilol 6.25mg tablet PO SCH ×2 (07:17→20:45)
[2017-10-12] MEDS: furosemide 40mg/4ml inj IV SCH ×2 (07:17→21:22)
[2017-10-12] MEDS: potassium Cl 20 mEq SR tablet PO SCH (07:17)
[2017-10-12] MEDS: aspirin 81mg tab.chew PO SCH (07:17)
[2017-10-12] MEDS: diltiazem 30mg tablet PO SCH ×3 (07:17→20:45)
[2017-10-12] MEDS: cefTRIAXone 1g/NS 100ml IVPB 100 ML IV SCH (07:17)
[2017-10-12] MEDS: gabapentin 300mg capsule PO SCH ×3 (07:18→20:47)
[2017-10-12] MEDS: lactobacillus rhamnosus 10,000 MMU CELLS/CAPSULE PO SCH ×2 (07:18→20:46)
[2017-10-12] MEDS: amiodarone 200mg tablet PO SCH ×2 (07:18→20:46)
[2017-10-12] MEDS: apixaban 5mg tablet PO SCH ×2 (07:18→20:47)
[2017-10-12] MEDS: pantoprazole 40mg Tablet.DR PO SCH (07:18)
[2017-10-12 07:26] LABS: ANISOCYTOSIS 3+; HYPOCHROMASIA 1+; MICROCYTOSIS 1+; PLATELET ESTIMATE NORMAL
[2017-10-12] MEDS ORDERED: vancomycin/NS 1 GM ADD-VANTAGE 250 ML IV SCH (09:30)
[2017-10-12 11:00] VITALS: BP 111/74
[2017-10-12] MEDS ORDERED: vancomycin/NS 1 GM ADD-VANTAGE 250 ML IV ONE (12:30)
[2017-10-12 15:00] VITALS: BP 106/61
[2017-10-12 19:00] VITALS: BP 133/81
[2017-10-12] MEDS: atorvastatin 10mg tablet PO SCH (20:44)
[2017-10-12 23:00] VITALS: BP 111/45
[2017-10-13] VITALS (7 sets, daily range): BP systolic 92–125; BP diastolic 49–76
[2017-10-13] MEDS: ipratropium 0.5 MG/2.5ML nebule IH SCH ×4 (03:42→20:24)
[2017-10-13] MEDS: levalbuterol 0.63mg/3ml nebule IH SCH ×4 (03:42→20:24)
[2017-10-13] MEDS: carvedilol 6.25mg tablet PO SCH ×2 (08:05→20:37)
[2017-10-13] MEDS: diltiazem 30mg tablet PO SCH ×3 (08:05→20:38)
[2017-10-13] MEDS: pantoprazole 40mg Tablet.DR PO SCH (08:06)
[2017-10-13] MEDS: amiodarone 200mg tablet PO SCH ×2 (08:06→20:39)
[2017-10-13] MEDS: apixaban 5mg tablet PO SCH ×2 (08:06→20:39)
[2017-10-13] MEDS: potassium Cl 20 mEq SR tablet PO SCH (08:06)
[2017-10-13] MEDS: furosemide 40mg/4ml inj IV SCH ×2 (08:06→20:36)
[2017-10-13] MEDS: gabapentin 300mg capsule PO SCH ×3 (08:06→20:40)
[2017-10-13] MEDS: cefTRIAXone 1g/NS 100ml IVPB 100 ML IV SCH (08:06)
[2017-10-13] MEDS: aspirin 81mg tab.chew PO SCH (08:06)
[2017-10-13] MEDS: lactobacillus rhamnosus 10,000 MMU CELLS/CAPSULE PO SCH ×2 (08:06→20:38)
[2017-10-13] MEDS: atorvastatin 10mg tablet PO SCH (20:38)
[2017-10-13] MEDS: HYDROcodone/acetaminophen 5mg/325mg tablet PO PRN (20:42)
[2017-10-14] MEDS: levalbuterol 0.63mg/3ml nebule IH SCH ×4 (02:40→21:05)
[2017-10-14] MEDS: ipratropium 0.5 MG/2.5ML nebule IH SCH ×4 (02:40→21:05)
[2017-10-14 03:00] VITALS: BP 109/71
[2017-10-14 06:00] VITALS: BP 110/60
[2017-10-14] MEDS: diltiazem 30mg tablet PO SCH ×3 (07:40→21:31)
[2017-10-14] MEDS: pantoprazole 40mg Tablet.DR PO SCH (07:40)
[2017-10-14] MEDS: gabapentin 300mg capsule PO SCH ×3 (07:40→21:32)
[2017-10-14] MEDS: potassium Cl 20 mEq SR tablet PO SCH (07:40)
[2017-10-14] MEDS: aspirin 81mg tab.chew PO SCH (07:40)
[2017-10-14] MEDS: amiodarone 200mg tablet PO SCH ×2 (07:41→21:29)
[2017-10-14] MEDS: cefTRIAXone 1g/NS 100ml IVPB 100 ML IV SCH (07:41)
[2017-10-14] MEDS: carvedilol 6.25mg tablet PO SCH ×2 (07:41→21:32)
[2017-10-14] MEDS: apixaban 5mg tablet PO SCH ×2 (07:41→21:32)
[2017-10-14] MEDS: lactobacillus rhamnosus 10,000 MMU CELLS/CAPSULE PO SCH ×2 (07:41→21:33)
[2017-10-14] MEDS: furosemide 40mg/4ml inj IV SCH ×2 (07:41→22:06)
[2017-10-14] MEDS ORDERED: VANCOMYCIN LEVEL IV NR (10:30)
[2017-10-14 11:00] VITALS: BP 113/69
[2017-10-14] MEDS ORDERED: VANCOMYCIN IV SCH (13:00)
[2017-10-14] MEDS ORDERED: NORMAL SALINE IV SCH (13:00)
[2017-10-14 15:00] VITALS: BP 111/84
[2017-10-14 19:00] VITALS: BP 121/76
[2017-10-14] MEDS: atorvastatin 10mg tablet PO SCH (21:33)
[2017-10-14] MEDS: VANCOMYCIN IV SCH (22:06)
[2017-10-14] MEDS: NORMAL SALINE IV SCH (22:06)
[2017-10-14 23:00] VITALS: BP 117/62
[2017-10-15] MEDS: ipratropium 0.5 MG/2.5ML nebule IH SCH ×4 (02:54→20:45)
[2017-10-15] MEDS: levalbuterol 0.63mg/3ml nebule IH SCH ×4 (02:54→20:45)
[2017-10-15 03:00] VITALS: BP 126/79
[2017-10-15 06:00] VITALS: BP 134/86
[2017-10-15 06:51] LABS: BASOPHILS % (AUTO) 0 % (0-1); EOSINOPHILS # (AUTO) 0.1 X10'3 (0-0.9); EOSINOPHILS % (AUTO) 1.7 % (0-6); HEMATOCRIT 25.5 % (42.0-52.0); HEMOGLOBIN 7.7 g/dl (14.0-17.9); LYMPHOCYTES # (AUTO) 1.2 X10'3 (1.1-4.8); LYMPHOCYTES % (AUTO) 17.9 % (21-51); MEAN CORPUSCULAR HEMOGLOBIN 25.9 PG (27.0-31.0); MEAN CORPUSCULAR HGB CONC 30.1 % (33.0-36.5); MEAN CORPUSCULAR VOLUME 86.3 FL (78-98); MEAN PLATELET VOLUME 8.7 FL (7.4-10.4); MONOCYTES # (AUTO) 0.9 X10'3 (0-0.9); MONOCYTES % (AUTO) 13.2 % (2-12); NEUTROPHILS # (AUTO) 4.6 X10'3 (1.8-7.7); NEUTROPHILS % (AUTO) 67.2 % (42-75); PLATELET COUNT 256 X10'3 (140-440); RED BLOOD COUNT 2.95 X10'6 (4.70-6.10); RED CELL DISTRIBUTION WIDTH 21.3 % (11.5-14.5); WHITE BLOOD COUNT 6.8 X10'3 (4.5-11.0)
[2017-10-15 07:09] LABS: ALANINE AMINOTRANSFERASE 13 U/L (12-78); ALBUMIN 2.9 G/DL (3.4-5.0); ALBUMIN/GLOBULIN RATIO 0.7 (1.1-1.5); ALKALINE PHOSPHATASE 133 IU/L (46-116); ANION GAP 3 (8-16); ASPARTATE AMINO TRANSFERASE 12 U/L (10-37); BILIRUBIN,TOTAL 0.4 MG/DL (0.1-1.0); BLOOD UREA NITROGEN 32 MG/DL (7-18); BUN/CREATININE RATIO 22.9 (5.4-32.0); CALCIUM 8.5 MG/DL (8.5-10.1); CHLORIDE 96 MMOL/L (99-107); GLUCOSE 106 MG/DL (70-104); POTASSIUM 3.8 MMOL/L (3.5-5.1); SODIUM 139 MMOL/L (135-145); TOTAL PROTEIN 6.9 G/DL (6.4-8.2); eGFR 51 ML/MIN
[2017-10-15 07:26] LABS: ANISOCYTOSIS 3+
[2017-10-15 07:28] LABS: HYPOCHROMASIA 1+; LARGE PLATELETS FEW; PLATELET ESTIMATE NORMAL
[2017-10-15 07:32] LABS: TOTAL CARBON DIOXIDE 40.2 MMOL/L (24-32)
[2017-10-15] MEDS: lactobacillus rhamnosus 10,000 MMU CELLS/CAPSULE PO SCH ×2 (07:52→20:54)
[2017-10-15] MEDS: carvedilol 6.25mg tablet PO SCH ×2 (07:52→20:55)
[2017-10-15] MEDS: aspirin 81mg tab.chew PO SCH (07:53)
[2017-10-15] MEDS: amiodarone 200mg tablet PO SCH ×2 (07:53→20:54)
[2017-10-15] MEDS: apixaban 5mg tablet PO SCH ×2 (07:53→20:54)
[2017-10-15] MEDS: pantoprazole 40mg Tablet.DR PO SCH (07:53)
[2017-10-15] MEDS: furosemide 40mg/4ml inj IV SCH ×3 (07:53→20:55)
[2017-10-15] MEDS: gabapentin 300mg capsule PO SCH ×3 (07:53→20:54)
[2017-10-15] MEDS: diltiazem 30mg tablet PO SCH ×3 (07:53→20:54)
[2017-10-15] MEDS: NORMAL SALINE IV SCH (07:55)
[2017-10-15] MEDS: VANCOMYCIN IV SCH (07:55)
[2017-10-15] MEDS: potassium Cl 20 mEq SR tablet PO SCH (07:59)
[2017-10-15] MEDS ORDERED: potassium Cl 20 mEq SR tablet PO PRN ×2 (10:10)
[2017-10-15] MEDS ORDERED: potassium Cl 40MEQ/NS 500ml 500 ML IV PRN ×2 (10:10)
[2017-10-15] MEDS ORDERED: magnesium Cl slow-release 64mg tablet PO PRN (10:10)
[2017-10-15] MEDS ORDERED: magnesium 4gm in 100ml NS 100 ML IV PRN (10:10)
[2017-10-15] MEDS ORDERED: magnesium 1gm/100ml D5W IVPB 100 ML IV PRN (10:10)
[2017-10-15 11:00] VITALS: BP 124/78
[2017-10-15 11:04] LABS: C-REACTIVE PROTEIN 5.9 MG/DL (0.0-0.5); MAGNESIUM 1.7 MG/DL (1.5-2.4); PHOSPHORUS 2.7 MG/DL (2.3-4.5)
[2017-10-15 11:21] LABS: ABG BASE EXCESS 12.8 mmol/L (-2.0-3.0); ABG HCO3 39.9 mmol/L (22.0-26.0); ABG OXYGEN SATURATION 94.4 % (95-98); ABG PCO2 (T) 69.6 mmHg (35.0-48.0); ABG PH (T) 7.376 (7.350-7.450); ABG PO2 (T) 78.3 mmHg (83-108); ALLEN'S TEST Positive; FCOHb 0.3 % (0.5-1.5); FLOW 6 L/min; FMetHb 0.2 % (0.3-1.12); FO2Hb 93.9 % (94-100); TOTAL HEMOGLOBIN 8.9 G/dl (14.0-18.0)
[2017-10-15] MEDS: piperacillin/tazo 3.375gm/50ml 50 ML IV SCH ×2 (11:31→16:27)
[2017-10-15 15:00] VITALS: BP 135/84
[2017-10-15 19:00] VITALS: BP 130/85
[2017-10-15] MEDS ORDERED: vancomycin inj 1,250 MG in normal saline 250ml IV soln 250 ML IV SCH (20:00)
[2017-10-15] MEDS: atorvastatin 10mg tablet PO SCH (20:54)
[2017-10-15 23:00] VITALS: BP 127/83
[2017-10-16] VITALS (12 sets, daily range): BP systolic 93–150; BP diastolic 69–98
[2017-10-16] MEDS ORDERED: VANCOMYCIN LEVEL IV ONE ×2 (00:30→07:30)
[2017-10-16] MEDS: piperacillin/tazo 3.375gm/50ml 50 ML IV SCH ×3 (01:14→17:45)
[2017-10-16] MEDS: ipratropium 0.5 MG/2.5ML nebule IH SCH ×4 (02:42→19:08)
[2017-10-16] MEDS: levalbuterol 0.63mg/3ml nebule IH SCH ×4 (02:42→19:08)
[2017-10-16] MEDS: ondansetron/PF 4mg/2ml inj IV PRN ×2 (07:26→15:25)
[2017-10-16] MEDS: potassium Cl 20 mEq SR tablet PO SCH (07:35)
[2017-10-16] MEDS: amiodarone 200mg tablet PO SCH ×2 (07:36→20:14)
[2017-10-16] MEDS: gabapentin 300mg capsule PO SCH ×3 (07:36→20:53)
[2017-10-16] MEDS: lactobacillus rhamnosus 10,000 MMU CELLS/CAPSULE PO SCH ×2 (07:36→20:15)
[2017-10-16] MEDS: pantoprazole 40mg Tablet.DR PO SCH (07:37)
[2017-10-16] MEDS: carvedilol 6.25mg tablet PO SCH ×2 (07:37→20:00)
[2017-10-16] MEDS: apixaban 5mg tablet PO SCH ×2 (07:37→20:14)
[2017-10-16] MEDS: aspirin 81mg tab.chew PO SCH (07:37)
[2017-10-16] MEDS: diltiazem 30mg tablet PO SCH ×2 (07:38→13:00)
[2017-10-16 07:56] LABS: HEMATOCRIT 26.8 % (42.0-52.0); HEMOGLOBIN 8.2 g/dl (14.0-17.9); MEAN CORPUSCULAR HEMOGLOBIN 26.6 PG (27.0-31.0); MEAN CORPUSCULAR HGB CONC 30.8 % (33.0-36.5); MEAN CORPUSCULAR VOLUME 86.5 FL (78-98); MEAN PLATELET VOLUME 9.1 FL (7.4-10.4); PLATELET COUNT 303 X10'3 (140-440); RED BLOOD COUNT 3.09 X10'6 (4.70-6.10); RED CELL DISTRIBUTION WIDTH 22.3 % (11.5-14.5); WHITE BLOOD COUNT 8.9 X10'3 (4.5-11.0)
[2017-10-16 08:10] LABS: ALBUMIN 3.2 G/DL (3.4-5.0); ANION GAP 2 (8-16); BLOOD UREA NITROGEN 27 MG/DL (7-18); BUN/CREATININE RATIO 18.6 (5.4-32.0); CALCIUM 9.4 MG/DL (8.5-10.1); CHLORIDE 96 MMOL/L (99-107); CREATININE 1.45 MG/DL (0.60-1.10); GLUCOSE 103 MG/DL (70-104); MAGNESIUM 1.6 MG/DL (1.5-2.4); POTASSIUM 3.7 MMOL/L (3.5-5.1); SODIUM 142 MMOL/L (135-145); eGFR 49 ML/MIN
[2017-10-16 08:24] LABS: TOTAL CARBON DIOXIDE 44.1 MMOL/L (24-32); VANCOMYCIN,TROUGH 28.7 UG/ML (6.0-14.0)
[2017-10-16] MEDS ORDERED: proCHLORperazine 10 MG/2 ml inj IV PRN (08:35)
[2017-10-16] MEDS ORDERED: LORazepam 1 MG tablet PO PRN (08:35)
[2017-10-16] MEDS ORDERED: metoclopramide 5 mg/ml inj IV PRN (08:35)
[2017-10-16 08:56] LABS: TOTAL CELLS COUNTED 100
[2017-10-16 08:57] LABS: ANISOCYTOSIS 3+; HYPOCHROMASIA 1+; PLATELET ESTIMATE NORMAL
[2017-10-16] MEDS: vancomycin inj. 750 MG in normal saline 250ml IV soln 250 ML IV SCH ×2 (09:00→20:53)
[2017-10-16] MEDS: furosemide 40mg/4ml inj IV SCH ×2 (09:01→13:26)
[2017-10-16] MEDS ORDERED: diltiazem 5mg/ml 5ml inj. IV ONE (11:20)
[2017-10-16 13:15] LABS: ABG BASE EXCESS 7.9 mmol/L (-2.0-3.0); ABG HCO3 35.1 mmol/L (22.0-26.0); ABG OXYGEN SATURATION 90.7 % (95-98); ABG PCO2 (T) 65.3 mmHg (35.0-48.0); ABG PH (T) 7.348 (7.350-7.450); ABG PO2 (T) 70.1 mmHg (83-108); ALLEN'S TEST Positive; FCOHb 0.1 % (0.5-1.5); FLOW 3 L/min; FMetHb 0.3 % (0.3-1.12); FO2Hb 90.3 % (94-100); TOTAL HEMOGLOBIN 9.6 G/dl (14.0-18.0)
[2017-10-16 13:36] LABS: TROPONIN I < 0.04 NG/ML (0.0-0.05)
[2017-10-16] MEDS ORDERED: proMETHazine 25mg rectal suppository RC PRN (13:55)
[2017-10-16] MEDS: diltiazem-NS 100mg/100ml 100 ML IV SCH (15:14)
[2017-10-16 19:26] LABS: ABG BASE EXCESS 20.8 mmol/L (-2.0-3.0); ABG PCO2 (T) 71.3 mmHg (35.0-48.0); ABG PH (T) 7.444 (7.350-7.450); ABG PO2 (T) 71.7 mmHg (83-108); ALLEN'S TEST Positive; FCOHb 0.4 % (0.5-1.5); FMetHb 0.3 % (0.3-1.12); FO2Hb 93.3 % (94-100); PATIENT TEMPERATURE 36.6; RESPIRATORY RATE 18 b/min; RESPIRATORY RATE (OBSERVED) 20 b/min; TOTAL HEMOGLOBIN 9.6 G/dl (14.0-18.0)
[2017-10-16] MEDS: atorvastatin 10mg tablet PO SCH (21:00)
[2017-10-17] MEDS: HYDROcodone/acetaminophen 5mg/325mg tablet PO PRN ×3 (01:36→20:12)
[2017-10-17] MEDS: levalbuterol 0.63mg/3ml nebule IH SCH ×3 (02:38→20:40)
[2017-10-17] MEDS: ipratropium 0.5 MG/2.5ML nebule IH SCH ×4 (02:38→20:40)
[2017-10-17 03:00] VITALS: BP 106/64
[2017-10-17 06:00] VITALS: BP 117/78
[2017-10-17 07:04] LABS: HEMATOCRIT 29.2 % (42.0-52.0); HEMOGLOBIN 8.6 g/dl (14.0-17.9); MEAN CORPUSCULAR HEMOGLOBIN 25.8 PG (27.0-31.0); MEAN CORPUSCULAR HGB CONC 29.6 % (33.0-36.5); MEAN CORPUSCULAR VOLUME 87.3 FL (78-98); MEAN PLATELET VOLUME 9.6 FL (7.4-10.4); PLATELET COUNT 310 X10'3 (140-440); RED BLOOD COUNT 3.34 X10'6 (4.70-6.10); WHITE BLOOD COUNT 12.3 X10'3 (4.5-11.0)
[2017-10-17 07:38] LABS: ALBUMIN 3.3 G/DL (3.4-5.0); BLOOD UREA NITROGEN 29 MG/DL (7-18); BUN/CREATININE RATIO 17.9 (5.4-32.0); CALCIUM 9.3 MG/DL (8.5-10.1); CHLORIDE 96 MMOL/L (99-107); CREATININE 1.62 MG/DL (0.60-1.10); GLUCOSE 79 MG/DL (70-104); MAGNESIUM 1.7 MG/DL (1.5-2.4); POTASSIUM 3.8 MMOL/L (3.5-5.1); SODIUM 144 MMOL/L (135-145); eGFR 43 ML/MIN
[2017-10-17 07:40] LABS: PLATELET ESTIMATE NORMAL; TOTAL CELLS COUNTED 100
[2017-10-17 07:41] LABS: ANISOCYTOSIS 3+; HYPOCHROMASIA 1+; POLYCHROMASIA FEW; SCHISTOCYTES FEW; STOMATOCYTES 1+
[2017-10-17] MEDS: potassium Cl 20 mEq SR tablet PO SCH (08:00)
[2017-10-17 08:05] LABS: ANION GAP 5 (8-16)
[2017-10-17 08:14] LABS: TOTAL CARBON DIOXIDE 43.5 MMOL/L (24-32)
[2017-10-17] MEDS: gabapentin 300mg capsule PO SCH ×3 (08:23→20:12)
[2017-10-17] MEDS: vancomycin inj. 750 MG in normal saline 250ml IV soln 250 ML IV SCH ×2 (08:23→20:14)
[2017-10-17] MEDS: carvedilol 6.25mg tablet PO SCH ×2 (08:23→20:12)
[2017-10-17] MEDS: apixaban 5mg tablet PO SCH ×2 (08:23→20:11)
[2017-10-17] MEDS: lactobacillus rhamnosus 10,000 MMU CELLS/CAPSULE PO SCH ×2 (08:24→20:11)
[2017-10-17] MEDS: aspirin 81mg tab.chew PO SCH (08:24)
[2017-10-17] MEDS: amiodarone 200mg tablet PO SCH ×2 (08:25→20:13)
[2017-10-17] MEDS: pantoprazole 40mg Tablet.DR PO SCH (08:25)
[2017-10-17] MEDS: diltiazem-NS 100mg/100ml 100 ML IV SCH (10:22)
[2017-10-17 11:00] VITALS: BP 93/68
[2017-10-17 13:31] LABS: ABG BASE EXCESS 18.7 mmol/L (-2.0-3.0); ABG HCO3 45.8 mmol/L (22.0-26.0); ABG OXYGEN SATURATION 94.1 % (95-98); ABG PCO2 (T) 71.1 mmHg (35.0-48.0); ABG PH (T) 7.427 (7.350-7.450); ABG PO2 (T) 73.4 mmHg (83-108); FCOHb 0.5 % (0.5-1.5); FMetHb 0.2 % (0.3-1.12); FO2Hb 93.4 % (94-100); PEEP 5 cm H2O; RESPIRATORY RATE (OBSERVED) 22 b/min; TIDAL VOLUME 667 mL; TOTAL HEMOGLOBIN 9.4 G/dl (14.0-18.0)
[2017-10-17 17:03] VITALS: BP 100/79
[2017-10-17 19:00] VITALS: BP 144/96
[2017-10-17] MEDS: atorvastatin 10mg tablet PO SCH (20:11)
[2017-10-17] MEDS: CefTRIAXone/D5W-Rocephin 1gm 50 ML IV SCH (20:11)
[2017-10-17] MEDS: digoxin 250mcg (0.25mg) tablet PO SCH ×2 (20:12→21:00)
[2017-10-17] MEDS ORDERED: VANCOMYCIN LEVEL IV ONE (20:30)
[2017-10-17 21:16] LABS: VANCOMYCIN,TROUGH 20.6 UG/ML (6.0-14.0)
[2017-10-17 23:00] VITALS: BP 101/71
[2017-10-18] VITALS (15 sets, daily range): BP systolic 94–127; BP diastolic 54–97
[2017-10-18] MEDS: ipratropium 0.5 MG/2.5ML nebule IH SCH ×4 (03:01→21:12)
[2017-10-18] MEDS: levalbuterol 0.63mg/3ml nebule IH SCH ×4 (03:01→21:12)
[2017-10-18 06:14] LABS: MAGNESIUM 1.9 MG/DL (1.5-2.4); POTASSIUM 3.8 MMOL/L (3.5-5.1)
[2017-10-18] MEDS: diltiazem-NS 100mg/100ml 100 ML IV SCH (06:22)
[2017-10-18] MEDS: potassium Cl 20 mEq SR tablet PO SCH (08:53)
[2017-10-18] MEDS: lactobacillus rhamnosus 10,000 MMU CELLS/CAPSULE PO SCH ×2 (08:53→20:09)
[2017-10-18] MEDS: amiodarone 200mg tablet PO SCH ×2 (08:53→20:10)
[2017-10-18] MEDS: gabapentin 300mg capsule PO SCH ×3 (08:53→22:33)
[2017-10-18] MEDS: CefTRIAXone/D5W-Rocephin 1gm 50 ML IV SCH ×2 (08:53→20:13)
[2017-10-18] MEDS: aspirin 81mg tab.chew PO SCH (08:53)
[2017-10-18] MEDS: digoxin 250mcg (0.25mg) tablet PO SCH ×3 (08:54→22:34)
[2017-10-18] MEDS: apixaban 5mg tablet PO SCH ×2 (08:54→20:10)
[2017-10-18] MEDS: carvedilol 6.25mg tablet PO SCH ×2 (08:54→20:10)
[2017-10-18] MEDS: pantoprazole 40mg Tablet.DR PO SCH (08:54)
[2017-10-18] MEDS: HYDROcodone/acetaminophen 5mg/325mg tablet PO PRN ×2 (09:00→20:11)
[2017-10-18 09:07] LABS: BASOPHILS % (AUTO) 0 % (0-1); EOSINOPHILS # (AUTO) 0.3 X10'3 (0-0.9); HEMATOCRIT 26.4 % (42.0-52.0); HEMOGLOBIN 8.1 g/dl (14.0-17.9); LYMPHOCYTES # (AUTO) 0.8 X10'3 (1.1-4.8); LYMPHOCYTES % (AUTO) 8.9 % (21-51); MEAN CORPUSCULAR HEMOGLOBIN 26.5 PG (27.0-31.0); MEAN CORPUSCULAR HGB CONC 30.6 % (33.0-36.5); MEAN CORPUSCULAR VOLUME 86.4 FL (78-98); MEAN PLATELET VOLUME 9.1 FL (7.4-10.4); MONOCYTES # (AUTO) 0.7 X10'3 (0-0.9); MONOCYTES % (AUTO) 7.4 % (2-12); NEUTROPHILS # (AUTO) 7.2 X10'3 (1.8-7.7); NEUTROPHILS % (AUTO) 80.7 % (42-75); PLATELET COUNT 352 X10'3 (140-440); RED BLOOD COUNT 3.05 X10'6 (4.70-6.10); RED CELL DISTRIBUTION WIDTH 22.2 % (11.5-14.5); WHITE BLOOD COUNT 8.9 X10'3 (4.5-11.0)
[2017-10-18 09:34] LABS: ANISOCYTOSIS 3+; HYPOCHROMASIA 1+; PLATELET ESTIMATE NORMAL; POIKILOCYTOSIS FEW; POLYCHROMASIA 1+; STOMATOCYTES 1+
[2017-10-18 09:35] LABS: GLUCOSE 85 MG/DL (70-104)
[2017-10-18 09:36] LABS: ALANINE AMINOTRANSFERASE 10 U/L (12-78); ALBUMIN/GLOBULIN RATIO 0.7 (1.1-1.5); ALKALINE PHOSPHATASE 111 IU/L (46-116); ANION GAP 2 (8-16); ASPARTATE AMINO TRANSFERASE 17 U/L (10-37); BILIRUBIN,TOTAL 0.4 MG/DL (0.1-1.0); BLOOD UREA NITROGEN 33 MG/DL (7-18); C-REACTIVE PROTEIN 10.14 MG/DL (0.0-0.5); CHLORIDE 100 MMOL/L (99-107); CREATINE KINASE 26 U/L (39-308); CREATININE 1.65 MG/DL (0.60-1.10); LIPASE 95 U/L (73-393); MAGNESIUM 1.7 MG/DL (1.5-2.4); PHOSPHORUS 3.1 MG/DL (2.3-4.5); POTASSIUM 3.9 MMOL/L (3.5-5.1); SODIUM 146 MMOL/L (135-145); TOTAL PROTEIN 7.1 G/DL (6.4-8.2); TROPONIN I < 0.04 NG/ML (0.0-0.05); eGFR 42 ML/MIN
[2017-10-18 09:39] LABS: TOTAL CARBON DIOXIDE 44.1 MMOL/L (24-32)
[2017-10-18] MEDS: vancomycin inj. 750 MG in normal saline 250ml IV soln 250 ML IV SCH (10:04)
[2017-10-18] MEDS ORDERED: diatrozoate meglu/diatrozoate sod (37% iodine) 120ML oral solution PO ONE (11:25)
[2017-10-18] MEDS ORDERED: diatr meglu/diatrizoate 30ml oral sol.-(3 dose) bottle PO ONE (11:30)
[2017-10-18 12:26] LABS: ABG BASE EXCESS 11.3 mmol/L (-2.0-3.0); ABG OXYGEN SATURATION 95.5 % (95-98); ABG PCO2 (T) 56.2 mmHg (35.0-48.0); ABG PH (T) 7.436 (7.350-7.450); ABG PO2 (T) 87.9 mmHg (83-108); ALLEN'S TEST Positive; FCOHb 0.1 % (0.5-1.5); FMetHb 0.4 % (0.3-1.12); MINUTE VOLUME 13 L/min; RESPIRATORY RATE 18 b/min; RESPIRATORY RATE (OBSERVED) 18 b/min; TIDAL VOLUME 810 mL; TOTAL HEMOGLOBIN 8.6 G/dl (14.0-18.0)
[2017-10-18] MEDS ORDERED: diltiazem-NS 100mg/100ml 100 ML IV SCH ×2 (13:40→21:30)
[2017-10-18] MEDS ORDERED: diltiazem 5mg/ml 5ml inj. IV ONE (13:50)
[2017-10-18] MEDS ORDERED: amiodarone/D5 360MG/200ML BAG 200 ML IV SCH (22:30)
[2017-10-18] MEDS ORDERED: amiodarone 150mg/dext, iso-os 100 ML IV ONE (22:30)
[2017-10-18] MEDS: atorvastatin 10mg tablet PO SCH (22:33)
[2017-10-18] MEDS: vancomycin inj 500 MG in normal saline 100ml IV soln 100 ML IV SCH (23:28)
[2017-10-18] MEDS: amiodarone/D5 360MG/200ML BAG 200 ML IV SCH (23:58)
[2017-10-19] VITALS (23 sets, daily range): BP systolic 86–128; BP diastolic 43–160
[2017-10-19] MEDS: ipratropium 0.5 MG/2.5ML nebule IH SCH ×4 (02:45→20:45)
[2017-10-19] MEDS: levalbuterol 0.63mg/3ml nebule IH SCH ×4 (02:45→20:45)
[2017-10-19 06:06] LABS: ALANINE AMINOTRANSFERASE 13 U/L (12-78); ALBUMIN 2.9 G/DL (3.4-5.0); ALBUMIN/GLOBULIN RATIO 0.7 (1.1-1.5); ALKALINE PHOSPHATASE 106 IU/L (46-116); ANION GAP 1 (8-16); ASPARTATE AMINO TRANSFERASE 19 U/L (10-37); BILIRUBIN,TOTAL 0.3 MG/DL (0.1-1.0); BLOOD UREA NITROGEN 29 MG/DL (7-18); BUN/CREATININE RATIO 18.6 (5.4-32.0); CALCIUM 8.8 MG/DL (8.5-10.1); CHLORIDE 100 MMOL/L (99-107); CREATININE 1.56 MG/DL (0.60-1.10); GLUCOSE 78 MG/DL (70-104); MAGNESIUM 1.9 MG/DL (1.5-2.4); POTASSIUM 3.8 MMOL/L (3.5-5.1); SODIUM 142 MMOL/L (135-145); eGFR 45 ML/MIN
[2017-10-19 06:10] LABS: TOTAL CARBON DIOXIDE 41.3 MMOL/L (24-32)
[2017-10-19] MEDS: amiodarone/D5 360MG/200ML BAG 200 ML IV SCH ×2 (06:27→10:38)
[2017-10-19] MEDS ORDERED: diltiazem 60mg tablet PO SCH (08:00)
[2017-10-19] MEDS: carvedilol 6.25mg tablet PO SCH ×3 (08:00→20:46)
[2017-10-19] MEDS ORDERED: digoxin 250mcg (0.25mg) tablet PO SCH (08:00)
[2017-10-19] MEDS: apixaban 5mg tablet PO SCH ×2 (09:01→20:46)
[2017-10-19] MEDS: aspirin 81mg tab.chew PO SCH (09:01)
[2017-10-19] MEDS: gabapentin 300mg capsule PO SCH ×3 (09:02→20:46)
[2017-10-19] MEDS: lactobacillus rhamnosus 10,000 MMU CELLS/CAPSULE PO SCH ×2 (09:02→20:46)
[2017-10-19] MEDS: pantoprazole 40mg Tablet.DR PO SCH (09:02)
[2017-10-19] MEDS: HYDROcodone/acetaminophen 5mg/325mg tablet PO PRN (09:02)
[2017-10-19] MEDS: potassium Cl 20 mEq SR tablet PO SCH (09:02)
[2017-10-19] MEDS: CefTRIAXone/D5W-Rocephin 1gm 50 ML IV SCH (09:03)
[2017-10-19] MEDS ORDERED: potassium Cl 20 mEq SR tablet PO STA (09:32)
[2017-10-19] MEDS ORDERED: furosemide 40mg/4ml inj IV ONE (09:35)
[2017-10-19] MEDS: vancomycin inj 500 MG in normal saline 100ml IV soln 100 ML IV SCH ×2 (10:54→22:53)
[2017-10-19 11:55] LABS: ALLEN'S TEST Positive
[2017-10-19] MEDS: diltiazem 30mg tablet PO SCH ×3 (12:27→20:46)
[2017-10-19] MEDS: acetaZOLAMIDE IV 500mg inj IV SCH (20:46)
[2017-10-19] MEDS: atorvastatin 10mg tablet PO SCH (20:47)
[2017-10-20] VITALS (7 sets, daily range): BP systolic 90–119; BP diastolic 44–77
[2017-10-20] MEDS: ipratropium 0.5 MG/2.5ML nebule IH SCH ×4 (02:29→20:49)
[2017-10-20] MEDS: levalbuterol 0.63mg/3ml nebule IH SCH ×4 (02:29→20:49)
[2017-10-20] MEDS ORDERED: furosemide 40mg/4ml inj IV ONE (06:50)
[2017-10-20] MEDS: carvedilol 6.25mg tablet PO SCH ×2 (07:40→21:23)
[2017-10-20] MEDS ORDERED: digoxin 125mcg (0.125mg) tablet PO SCH (08:00)
[2017-10-20] MEDS: acetaZOLAMIDE IV 500mg inj IV SCH ×2 (08:07→21:23)
[2017-10-20] MEDS: potassium Cl 20 mEq SR tablet PO SCH (08:09)
[2017-10-20] MEDS: diltiazem 30mg tablet PO SCH ×3 (08:10→21:23)
[2017-10-20] MEDS: aspirin 81mg tab.chew PO SCH (08:11)
[2017-10-20] MEDS: lactobacillus rhamnosus 10,000 MMU CELLS/CAPSULE PO SCH ×2 (08:11→21:23)
[2017-10-20] MEDS: apixaban 5mg tablet PO SCH ×2 (08:11→21:29)
[2017-10-20] MEDS: gabapentin 300mg capsule PO SCH ×3 (08:11→21:24)
[2017-10-20] MEDS: pantoprazole 40mg Tablet.DR PO SCH (08:11)
[2017-10-20] MEDS ORDERED: VANCOMYCIN LEVEL IV ONE (09:30)
[2017-10-20 10:11] LABS: BASOPHILS % (AUTO) 0 % (0-1); EOSINOPHILS # (AUTO) 0.3 X10'3 (0-0.9); HEMATOCRIT 31.9 % (42.0-52.0); HEMOGLOBIN 9.8 g/dl (14.0-17.9); LYMPHOCYTES # (AUTO) 1.2 X10'3 (1.1-4.8); LYMPHOCYTES % (AUTO) 14.8 % (21-51); MEAN CORPUSCULAR HEMOGLOBIN 26.4 PG (27.0-31.0); MEAN CORPUSCULAR HGB CONC 30.6 % (33.0-36.5); MEAN CORPUSCULAR VOLUME 86.2 FL (78-98); MEAN PLATELET VOLUME 9.9 FL (7.4-10.4); MONOCYTES # (AUTO) 0.5 X10'3 (0-0.9); MONOCYTES % (AUTO) 6.2 % (2-12); NEUTROPHILS # (AUTO) 6.2 X10'3 (1.8-7.7); PLATELET COUNT 369 X10'3 (140-440); RED CELL DISTRIBUTION WIDTH 21.5 % (11.5-14.5); WHITE BLOOD COUNT 8.2 X10'3 (4.5-11.0)
[2017-10-20 10:37] LABS: ANISOCYTOSIS 3+; PLATELET ESTIMATE NORMAL
[2017-10-20 10:38] LABS: LARGE PLATELETS FEW; POLYCHROMASIA 1+
[2017-10-20 10:39] LABS: GIANT PLATELET FEW
[2017-10-20] MEDS: atorvastatin 10mg tablet PO SCH (21:23)
[2017-10-20] MEDS: vancomycin inj. 750 MG in normal saline 250ml IV soln 250 ML IV SCH (21:25)
[2017-10-21] VITALS (15 sets, daily range): BP systolic 89–126; BP diastolic 51–78
[2017-10-21] MEDS: ipratropium 0.5 MG/2.5ML nebule IH SCH ×4 (03:01→20:15)
[2017-10-21] MEDS: levalbuterol 0.63mg/3ml nebule IH SCH ×4 (03:03→20:14)
[2017-10-21 03:12] LABS: BASOPHILS % (AUTO) 0.2 % (0-1); EOSINOPHILS # (AUTO) 0.3 X10'3 (0-0.9); EOSINOPHILS % (AUTO) 3.9 % (0-6); HEMATOCRIT 27.5 % (42.0-52.0); HEMOGLOBIN 8.4 g/dl (14.0-17.9); LYMPHOCYTES # (AUTO) 1.4 X10'3 (1.1-4.8); LYMPHOCYTES % (AUTO) 17.1 % (21-51); MEAN CORPUSCULAR HEMOGLOBIN 26.1 PG (27.0-31.0); MEAN CORPUSCULAR HGB CONC 30.4 % (33.0-36.5); MEAN CORPUSCULAR VOLUME 85.6 FL (78-98); MEAN PLATELET VOLUME 9.3 FL (7.4-10.4); MONOCYTES # (AUTO) 0.6 X10'3 (0-0.9); MONOCYTES % (AUTO) 7.2 % (2-12); NEUTROPHILS # (AUTO) 5.9 X10'3 (1.8-7.7); NEUTROPHILS % (AUTO) 71.6 % (42-75); PLATELET COUNT 376 X10'3 (140-440); RED BLOOD COUNT 3.21 X10'6 (4.70-6.10); RED CELL DISTRIBUTION WIDTH 21.7 % (11.5-14.5); WHITE BLOOD COUNT 8.2 X10'3 (4.5-11.0)
[2017-10-21 03:25] LABS: ALBUMIN 2.7 G/DL (3.4-5.0); ANION GAP 2 (8-16); BLOOD UREA NITROGEN 25 MG/DL (7-18); BUN/CREATININE RATIO 14.8 (5.4-32.0); CALCIUM 8.5 MG/DL (8.5-10.1); CHLORIDE 103 MMOL/L (99-107); CREATININE 1.69 MG/DL (0.60-1.10); GLUCOSE 93 MG/DL (70-104); POTASSIUM 3.9 MMOL/L (3.5-5.1); SODIUM 140 MMOL/L (135-145); TOTAL CARBON DIOXIDE 35.5 MMOL/L (24-32); eGFR 41 ML/MIN
[2017-10-21] MEDS: HYDROcodone/acetaminophen 5mg/325mg tablet PO PRN ×2 (05:07→23:52)
[2017-10-21] MEDS: aspirin 81mg tab.chew PO SCH (08:22)
[2017-10-21] MEDS: diltiazem 30mg tablet PO SCH ×3 (08:23→21:00)
[2017-10-21] MEDS: pantoprazole 40mg Tablet.DR PO SCH (08:23)
[2017-10-21] MEDS: apixaban 5mg tablet PO SCH ×2 (08:23→20:21)
[2017-10-21] MEDS: lactobacillus rhamnosus 10,000 MMU CELLS/CAPSULE PO SCH ×2 (08:23→20:21)
[2017-10-21] MEDS: potassium Cl 20 mEq SR tablet PO SCH (08:24)
[2017-10-21] MEDS: gabapentin 300mg capsule PO SCH ×3 (08:24→21:00)
[2017-10-21] MEDS: carvedilol 6.25mg tablet PO SCH ×2 (08:24→20:21)
[2017-10-21] MEDS: acetaZOLAMIDE IV 500mg inj IV SCH ×2 (08:25→20:21)
[2017-10-21 18:47] LABS: OCCULT BLOOD STOOL NEGATIVE (Neg)
[2017-10-21] MEDS: atorvastatin 10mg tablet PO SCH (20:21)
[2017-10-21] MEDS: vancomycin inj. 750 MG in normal saline 250ml IV soln 250 ML IV SCH ×2 (22:00→23:51)
[2017-10-22 03:00] VITALS: BP 126/79
[2017-10-22] MEDS: ipratropium 0.5 MG/2.5ML nebule IH SCH ×2 (03:17→08:42)
[2017-10-22] MEDS: levalbuterol 0.63mg/3ml nebule IH SCH ×2 (03:17→08:42)
[2017-10-22 04:55] LABS: BASOPHILS % (AUTO) 0 % (0-1); EOSINOPHILS # (AUTO) 0.3 X10'3 (0-0.9); EOSINOPHILS % (AUTO) 3.5 % (0-6); HEMATOCRIT 30.1 % (42.0-52.0); HEMOGLOBIN 9.2 g/dl (14.0-17.9); LYMPHOCYTES # (AUTO) 1.6 X10'3 (1.1-4.8); LYMPHOCYTES % (AUTO) 15.4 % (21-51); MEAN CORPUSCULAR HEMOGLOBIN 26.1 PG (27.0-31.0); MEAN CORPUSCULAR HGB CONC 30.7 % (33.0-36.5); MEAN CORPUSCULAR VOLUME 85.1 FL (78-98); MEAN PLATELET VOLUME 9.3 FL (7.4-10.4); MONOCYTES # (AUTO) 0.7 X10'3 (0-0.9); MONOCYTES % (AUTO) 6.8 % (2-12); NEUTROPHILS # (AUTO) 7.5 X10'3 (1.8-7.7); NEUTROPHILS % (AUTO) 74.3 % (42-75); PLATELET COUNT 385 X10'3 (140-440); RED BLOOD COUNT 3.54 X10'6 (4.70-6.10); RED CELL DISTRIBUTION WIDTH 21.3 % (11.5-14.5); WHITE BLOOD COUNT 10.1 X10'3 (4.5-11.0)
[2017-10-22 05:11] LABS: ALBUMIN 2.8 G/DL (3.4-5.0); ANION GAP 6 (8-16); BLOOD UREA NITROGEN 30 MG/DL (7-18); BUN/CREATININE RATIO 16.3 (5.4-32.0); CALCIUM 8.2 MG/DL (8.5-10.1); CHLORIDE 104 MMOL/L (99-107); CREATININE 1.84 MG/DL (0.60-1.10); GLUCOSE 97 MG/DL (70-104); SODIUM 141 MMOL/L (135-145); TOTAL CARBON DIOXIDE 31.3 MMOL/L (24-32); eGFR 37 ML/MIN
[2017-10-22 06:00] VITALS: BP 124/82
[2017-10-22] MEDS: diltiazem 30mg tablet PO SCH ×2 (09:04→14:27)
[2017-10-22] MEDS: lactobacillus rhamnosus 10,000 MMU CELLS/CAPSULE PO SCH (09:04)
[2017-10-22] MEDS: apixaban 5mg tablet PO SCH (09:05)
[2017-10-22] MEDS: gabapentin 300mg capsule PO SCH ×2 (09:05→14:28)
[2017-10-22] MEDS: aspirin 81mg tab.chew PO SCH (09:05)
[2017-10-22] MEDS: pantoprazole 40mg Tablet.DR PO SCH (09:05)
[2017-10-22] MEDS: carvedilol 6.25mg tablet PO SCH (09:05)
[2017-10-22] MEDS: potassium Cl 20 mEq SR tablet PO SCH (09:05)
[2017-10-22] MEDS: acetaZOLAMIDE IV 500mg inj IV SCH (09:06)
[2017-10-22] MEDS ORDERED: VANCOMYCIN LEVEL IV ONE (09:30)
[2017-10-22] MEDS: vancomycin inj. 750 MG in normal saline 250ml IV soln 250 ML IV SCH (10:30)
[2017-10-22 11:00] VITALS: BP 119/76
[2017-10-22 15:00] VITALS: BP 122/74
[2017-10-23] MEDS ORDERED: VANCOMYCIN LEVEL IV ONE (09:30)
== END 2017-10-22 15:54 | DRG 871 ==
LOC: ER 12:50 → ED HOLD 15:08 → CMPBEDREQ 21:48 → PCU 3S 21:48
PROVIDERS: ADMIT Family Medicine; ATTEND Family Medicine
PROC: 5A09357 Assistance with Respiratory Ventilation, Less than 24 Consecutive Hours, Continuous Positive Airway Pressure (ICD-10-PCS; 2017-10-10)
PROC: 5A09357 Assistance with Respiratory Ventilation, Less than 24 Consecutive Hours, Continuous Positive Airway Pressure (ICD-10-PCS; 2017-10-16)
PROC: 5A09357 Assistance with Respiratory Ventilation, Less than 24 Consecutive Hours, Continuous Positive Airway Pressure (ICD-10-PCS; 2017-10-17)
PROC: 5A09357 Assistance with Respiratory Ventilation, Less than 24 Consecutive Hours, Continuous Positive Airway Pressure (ICD-10-PCS; 2017-10-18)
PROC: 30233N1 Transfusion of Nonautologous Red Blood Cells into Peripheral Vein, Percutaneous Approach (ICD-10-PCS; principal; 2017-10-19)
PROC: 5A09357 Assistance with Respiratory Ventilation, Less than 24 Consecutive Hours, Continuous Positive Airway Pressure (ICD-10-PCS; 2017-10-19)
PROC: CB221ZZ Tomographic (Tomo) Nuclear Medicine Imaging of Lungs and Bronchi using Technetium 99m (Tc-99m) (ICD-10-PCS; 2017-10-20)
PROC: 5A09357 Assistance with Respiratory Ventilation, Less than 24 Consecutive Hours, Continuous Positive Airway Pressure (ICD-10-PCS; 2017-10-21)
PROC: 30233N1 Transfusion of Nonautologous Red Blood Cells into Peripheral Vein, Percutaneous Approach (ICD-10-PCS; 2017-10-21)
DX: A41.02 Sepsis due to Methicillin resistant Staphylococcus aureus (principal); I50.23 Acute on chronic systolic (congestive) heart failure; J96.21 Acute and chronic respiratory failure with hypoxia; J96.22 Acute and chronic respiratory failure with hypercapnia; J18.9 Pneumonia, unspecified organism; Z68.42 Body mass index [BMI] 45.0-49.9, adult; I13.0 Hypertensive heart and chronic kidney disease with heart failure and stage 1 through stage 4 chronic kidney disease, or unspecified chronic kidney disease; I48.1 Persistent atrial fibrillation; L03.115 Cellulitis of right lower limb; L03.116 Cellulitis of left lower limb; E87.1 Hypo-osmolality and hyponatremia; J44.0 Chronic obstructive pulmonary disease with (acute) lower respiratory infection; K56.609 Unspecified intestinal obstruction, unspecified as to partial versus complete obstruction; E78.5 Hyperlipidemia, unspecified; I27.81 Cor pulmonale (chronic); E66.01 Morbid (severe) obesity due to excess calories; D63.8 Anemia in other chronic diseases classified elsewhere; F10.10 Alcohol abuse, uncomplicated; G47.30 Sleep apnea, unspecified; I25.10 Atherosclerotic heart disease of native coronary artery without angina pectoris; I48.0 Paroxysmal atrial fibrillation; I80.8 Phlebitis and thrombophlebitis of other sites; M17.12 Unilateral primary osteoarthritis, left knee; N18.3 Chronic kidney disease, stage 3 (moderate); Z79.01 Long term (current) use of anticoagulants; Z91.14 Patient's other noncompliance with medication regimen; Z91.19 Patient's noncompliance with other medical treatment and regimen; Z95.1 Presence of aortocoronary bypass graft; Z99.81 Dependence on supplemental oxygen; Z88.8 Allergy status to other drugs, medicaments and biological substances; Z79.899 Other long term (current) drug therapy; Z79.82 Long term (current) use of aspirin; Z86.711 Personal history of pulmonary embolism; Z71.41 Alcohol abuse counseling and surveillance of alcoholic; Z71.6 Tobacco abuse counseling
CPT/HCPCS: 36415; 36600; 71045; 71250; 73700; 74176; 78582; 80048; 80053; 80162; 80202; 81003; 82272; 82550; 82803; 83605; 83690; 83735; 83880; 84100; 84132; 84145; 84484; 85018; 85025; 85610; 85651; 85730; 86140; 86885; 86900; 86901; 86920; 87040; 87070; 87077; 87186; 93005; 93306; 93970; 94640; 94660; 94760; 96374; 97116; 97161; 97530; 99285; A6212; A9539; A9540; J0282; J0696; J0780; J1120; J1940; J2405; J2543; J2765; J3370; J3490; J7030; J7614; P9016; Q9963

== ENCOUNTER 2017-12-28 14:22 | Inpatient (IN) | payer MEDICARE, MEDICAID ==
[~2017-12-28] VITALS: Ht 177.8 cm; Wt 141.2 kg
[2017-12-28] VITALS (8 sets, daily range): BP systolic 94–114; BP diastolic 52–73
[~2017-12-28 14:22] MED LIST changes: +HYDR-4383 PO; -METO-477 PO; +OMEP40CA37 PO; +POTA10TA52
[2017-12-28 14:46] LABS: BASOPHILS % (AUTO) 0.4 % (0-1); EOSINOPHILS % (AUTO) 0.3 % (0-6); HEMOGLOBIN 9.3 g/dl (14.0-17.9); LYMPHOCYTES # (AUTO) 0.8 X10'3 (1.1-4.8); MEAN CORPUSCULAR HEMOGLOBIN 25.4 PG (27.0-31.0); MEAN CORPUSCULAR HGB CONC 29.9 % (33.0-36.5); MEAN PLATELET VOLUME 9.1 FL (7.4-10.4); MONOCYTES # (AUTO) 0.6 X10'3 (0-0.9); MONOCYTES % (AUTO) 7.5 % (2-12); NEUTROPHILS # (AUTO) 6.8 X10'3 (1.8-7.7); NEUTROPHILS % (AUTO) 81.8 % (42-75); PLATELET COUNT 283 X10'3 (140-440); RED BLOOD COUNT 3.64 X10'6 (4.70-6.10); RED CELL DISTRIBUTION WIDTH 21.1 % (11.5-14.5); WHITE BLOOD COUNT 8.3 X10'3 (4.5-11.0)
[2017-12-28] MEDS ORDERED: furosemide 10 MG/1 ML 10ml inj IV ONE (14:55)
[2017-12-28 15:02] LABS: ALANINE AMINOTRANSFERASE 17 U/L (12-78); ALBUMIN 2.7 G/DL (3.4-5.0); ALBUMIN/GLOBULIN RATIO 0.7 (1.1-1.5); ALKALINE PHOSPHATASE 206 IU/L (46-116); ANION GAP 10 (8-16); ASPARTATE AMINO TRANSFERASE 23 U/L (10-37); BILIRUBIN,TOTAL 0.2 MG/DL (0.1-1.0); BLOOD UREA NITROGEN 93 MG/DL (7-18); CALCIUM 6.6 MG/DL (8.5-10.1); CHLORIDE 99 MMOL/L (99-107); CREATININE 10.28 MG/DL (0.60-1.10); GLUCOSE 113 MG/DL (70-104); POTASSIUM 4.8 MMOL/L (3.5-5.1); SODIUM 135 MMOL/L (135-145); TOTAL CARBON DIOXIDE 26.2 MMOL/L (24-32); TOTAL PROTEIN 6.7 G/DL (6.4-8.2); eGFR 5 ML/MIN
[2017-12-28 15:09] LABS: MAGNESIUM 2.6 MG/DL (1.5-2.4)
[2017-12-28 15:41] LABS: ANISOCYTOSIS 3+; PLATELET ESTIMATE NORMAL
[2017-12-28 15:42] LABS: ELLIPTOCYTES FEW; HYPOCHROMASIA 1+
[2017-12-28 15:43] LABS: SCHISTOCYTES FEW
[2017-12-28] MEDS ORDERED: FURO-149 PO (16:03)
[2017-12-28] MEDS ORDERED: bisacodyl 10mg suppository rectal RC PRN (16:10)
[2017-12-28] MEDS ORDERED: METO1TAB25 PO (16:10)
[2017-12-28] MEDS ORDERED: thiamine 100mg/ml 2ml inj. IV ONE (16:10)
[2017-12-28] MEDS ORDERED: magnesium hydroxide 30ml (MOM) UD suspension PO PRN (16:10)
[2017-12-28] MEDS ORDERED: acetaminophen 325mg tablet PO PRN (16:10)
[2017-12-28] MEDS ORDERED: morphine 2 MG/ML inj. syringe IV PRN ×2 (16:10)
[2017-12-28] MEDS ORDERED: mag hydrox/Alum hydrox/simeth 30ml oral suspension PO PRN (16:10)
[2017-12-28] MEDS ORDERED: LORazepam 1 MG tablet PO PRN ×2 (16:10→16:20)
[2017-12-28] MEDS ORDERED: LORazepam 2 mg/ml vial IV PRN ×2 (16:10→16:20)
[2017-12-28] MEDS ORDERED: ondansetron/PF 4mg/2ml inj IV PRN (16:10)
[2017-12-28] MEDS ORDERED: ATOR10TA87 PO (16:10)
[2017-12-28] MEDS ORDERED: dextrose 50%-water 50ml dispensing syringe IV PRN (16:10)
[2017-12-28] MEDS ORDERED: [UNRECOGNIZED DRUG - CODE] PO (16:12)
[2017-12-28] MEDS ORDERED: DOBUTamine-DoBUTrex 500mg/D5W 250 ML IV SCH (16:20)
[2017-12-28 18:26] LABS: TOTAL PROTEIN,URINE RANDOM 61.7 MG/DL
[2017-12-28] MEDS: carVEDilol 3.125mg tablet PO SCH (20:00)
[2017-12-28] MEDS ORDERED: carvedilol 6.25mg tablet PO SCH (20:00)
[2017-12-28] MEDS: docusate sod 100mg capsule PO SCH (20:00)
[2017-12-28 20:41] LABS: ALBUMIN 2.7 G/DL (3.4-5.0); ANION GAP 11 (8-16); BLOOD UREA NITROGEN 97 MG/DL (7-18); BUN/CREATININE RATIO 9.2 (5.4-32.0); CALCIUM 6.5 MG/DL (8.5-10.1); CHLORIDE 99 MMOL/L (99-107); CREATININE 10.53 MG/DL (0.60-1.10); GLUCOSE 106 MG/DL (70-104); POTASSIUM 4.5 MMOL/L (3.5-5.1); SODIUM 135 MMOL/L (135-145); TOTAL CARBON DIOXIDE 25.4 MMOL/L (24-32); eGFR 5 ML/MIN
[2017-12-28] MEDS: DOBUTamine-DoBUTrex 500mg/D5W 250 ML IV SCH (21:09)
[2017-12-28] MEDS: apixaban 5mg tablet PO SCH (21:17)
[2017-12-28] MEDS: thiamine 100mg tablet PO SCH (21:17)
[2017-12-28] MEDS: folic acid 1mg tablet PO SCH (21:17)
[2017-12-29] VITALS (21 sets, daily range): BP systolic 84–124; BP diastolic 49–79
[2017-12-29] MEDS ORDERED: furosemide 20 MG/2 ML vial IV SCH
[2017-12-29] MEDS ORDERED: DOPamine 400mg/D5W 250ml 250 ML IV SCH (03:10)
[2017-12-29 03:25] LABS: ABG BASE EXCESS -6.2 mmol/L (-2.0-3.0); ABG HCO3 24.5 mmol/L (22.0-26.0); ABG OXYGEN SATURATION 95.5 % (95-98); ABG PCO2 (T) 82.6 mmHg (35.0-48.0); ABG PH (T) 7.089 (7.350-7.450); ABG PO2 (T) 100.3 mmHg (83-108); ALLEN'S TEST Positive; FCOHb 0.7 % (0.5-1.5); FLOW 6 L/min; FMetHb 0.5 % (0.3-1.12); FO2Hb 94.4 % (94-100); PATIENT TEMPERATURE 36.7; TOTAL HEMOGLOBIN 10.1 G/dl (14.0-18.0)
[2017-12-29] MEDS: levalbuterol 0.63mg/3ml nebule IH SCH ×3 (03:36→20:02)
[2017-12-29] MEDS: DOPamine 400mg/D5W 250ml 250 ML IV SCH ×3 (03:39→22:30)
[2017-12-29 03:41] LABS: BASOPHILS # (AUTO) 0.1 X10'3 (0-0.2); BASOPHILS % (AUTO) 0.9 % (0-1); EOSINOPHILS % (AUTO) 0.4 % (0-6); HEMATOCRIT 29.3 % (42.0-52.0); HEMOGLOBIN 9.2 g/dl (14.0-17.9); LYMPHOCYTES # (AUTO) 1.1 X10'3 (1.1-4.8); LYMPHOCYTES % (AUTO) 13.2 % (21-51); MEAN CORPUSCULAR HEMOGLOBIN 26.6 PG (27.0-31.0); MEAN CORPUSCULAR HGB CONC 31.3 % (33.0-36.5); MEAN PLATELET VOLUME 9.7 FL (7.4-10.4); MONOCYTES # (AUTO) 0.7 X10'3 (0-0.9); MONOCYTES % (AUTO) 7.9 % (2-12); NEUTROPHILS # (AUTO) 6.6 X10'3 (1.8-7.7); NEUTROPHILS % (AUTO) 77.6 % (42-75); PLATELET COUNT 260 X10'3 (140-440); RED BLOOD COUNT 3.45 X10'6 (4.70-6.10); WHITE BLOOD COUNT 8.5 X10'3 (4.5-11.0)
[2017-12-29 03:49] LABS: ALANINE AMINOTRANSFERASE 14 U/L (12-78); ALBUMIN 2.6 G/DL (3.4-5.0); ALBUMIN/GLOBULIN RATIO 0.7 (1.1-1.5); ALKALINE PHOSPHATASE 201 IU/L (46-116); ANION GAP 12 (8-16); ASPARTATE AMINO TRANSFERASE 18 U/L (10-37); BILIRUBIN,TOTAL 0.3 MG/DL (0.1-1.0); BLOOD UREA NITROGEN 97 MG/DL (7-18); BUN/CREATININE RATIO 9.4 (5.4-32.0); CALCIUM 6.4 MG/DL (8.5-10.1); CHLORIDE 99 MMOL/L (99-107); CREATININE 10.35 MG/DL (0.60-1.10); GLUCOSE 84 MG/DL (70-104); POTASSIUM 4.4 MMOL/L (3.5-5.1); SODIUM 136 MMOL/L (135-145); TOTAL PROTEIN 6.5 G/DL (6.4-8.2); eGFR 5 ML/MIN
[2017-12-29 03:55] LABS: CHOL/HDL RATIO 2.4 (0.00-4.99); CHOLESTEROL 105 MG/DL (0-200); HDL CHOLESTEROL 44 MG/DL (35-60); LDL CHOLESTEROL 53 MG/DL (50-100); TRIGLYCERIDES 50 MG/DL (20-135)
[2017-12-29] MEDS: carVEDilol 3.125mg tablet PO SCH ×2 (07:55→21:06)
[2017-12-29] MEDS: furosemide 10 MG/1 ML 10ml inj IV SCH ×3 (07:55→16:00)
[2017-12-29] MEDS: aspirin 81mg tab.chew PO SCH (08:00)
[2017-12-29] MEDS: apixaban 5mg tablet PO SCH ×2 (08:00→21:02)
[2017-12-29] MEDS: folic acid 1mg tablet PO SCH (08:00)
[2017-12-29] MEDS: docusate sod 100mg capsule PO SCH ×2 (08:00→21:02)
[2017-12-29] MEDS: thiamine 100mg tablet PO SCH (08:00)
[2017-12-29 08:30] LABS: ABG BASE EXCESS -9.4 mmol/L (-2.0-3.0); ABG HCO3 20.4 mmol/L (22.0-26.0); ABG OXYGEN SATURATION 92.2 % (95-98); ABG PCO2 (T) 65.2 mmHg (35.0-48.0); ABG PH (T) 7.114 (7.350-7.450); ABG PO2 (T) 72.3 mmHg (83-108); ALLEN'S TEST Positive; FCOHb 0.7 % (0.5-1.5); FMetHb 0.4 % (0.3-1.12); FO2Hb 91.2 % (94-100); PEEP 8 cm H2O; RESPIRATORY RATE 18 b/min; RESPIRATORY RATE (OBSERVED) 18 b/min; TIDAL VOLUME 1000 mL; TOTAL HEMOGLOBIN 11.4 G/dl (14.0-18.0)
[2017-12-29] MEDS: HEPARIN IV SCH (13:10)
[2017-12-29] MEDS: NORMAL SALINE IV SCH (13:10)
[2017-12-29] MEDS ORDERED: heparin 1,000 units/ml 10ml inj HE ONE ×4 (13:30)
[2017-12-29 17:03] LABS: CLARITY,URINE SLIGHTLY CLOUDY (Clear); COLOR,URINE YELLOW (Yellow); GLUCOSE, URINE NEGATIVE (Neg); KETONES,URINE NEGATIVE (Neg); LEUKOCYTE ESTERASE ,URINE SMALL (Neg); NITRITES, URINE NEGATIVE (Neg); OCCULT BLOOD,URINE LARGE (Neg); PROTEIN,URINE TRACE mg/dl (Neg); UROBILINOGEN,URINE 0.2 E.U/dL (0.2-1.0)
[2017-12-29 17:04] LABS: UA COLLECTION TYPE NON-SPECIFIED
[2017-12-29 17:19] LABS: URINE AMPHETAMINE SCREEN NEGATIVE (Neg); URINE BARBITUATE SCREEN NEGATIVE (Neg); URINE BENZODIAZEPINES SCREEN NEGATIVE (Neg); URINE CANNABINOID SCREEN POSITIVE (Neg); URINE COCAINE SCREEN NEGATIVE (Neg); URINE METHADONE SCREEN NEGATIVE (Neg); URINE OPIATE SCREEN NEGATIVE (Neg); URINE PHENCYCLIDINE SCREEN NEGATIVE (Neg)
[2017-12-29 17:36] LABS: SQUAMOUS EPITHELIAL CELL,UR MODERATE /LPF (FEW)
[2017-12-29 17:37] LABS: BACTERIA,URINE 3+ /HPF (Neg); RBC,URINE TNTC /HPF (0-2)
[2017-12-29 17:38] LABS: WBC,URINE 30-50 /HPF (0-4)
[2017-12-29 17:39] LABS: AMORPHOUS URATES 1+; RENAL CELLS, URINE FEW /HPF; WBC CLUMPS,URINE FEW /HPF (NEGATIVE)
[2017-12-30] VITALS (24 sets, daily range): BP systolic 92–137; BP diastolic 50–89
[2017-12-30] MEDS ORDERED: gabapentin 300mg capsule PO ONE (01:05)
[2017-12-30] MEDS: DOBUTamine-DoBUTrex 500mg/D5W 250 ML IV SCH ×2 (01:14→16:07)
[2017-12-30 01:24] LABS: BASOPHILS # (AUTO) 0.1 X10'3 (0-0.2); BASOPHILS % (AUTO) 0.9 % (0-1); EOSINOPHILS # (AUTO) 0.1 X10'3 (0-0.9); EOSINOPHILS % (AUTO) 1.1 % (0-6); HEMATOCRIT 29.3 % (42.0-52.0); LYMPHOCYTES # (AUTO) 0.6 X10'3 (1.1-4.8); LYMPHOCYTES % (AUTO) 7.8 % (21-51); MEAN CORPUSCULAR HEMOGLOBIN 25.5 PG (27.0-31.0); MEAN CORPUSCULAR HGB CONC 30.6 % (33.0-36.5); MEAN CORPUSCULAR VOLUME 83.3 FL (78-98); MEAN PLATELET VOLUME 8.8 FL (7.4-10.4); MONOCYTES # (AUTO) 0.6 X10'3 (0-0.9); MONOCYTES % (AUTO) 7.5 % (2-12); NEUTROPHILS # (AUTO) 6.6 X10'3 (1.8-7.7); NEUTROPHILS % (AUTO) 82.7 % (42-75); PLATELET COUNT 282 X10'3 (140-440); RED BLOOD COUNT 3.52 X10'6 (4.70-6.10); RED CELL DISTRIBUTION WIDTH 20.8 % (11.5-14.5)
[2017-12-30 01:42] LABS: ALANINE AMINOTRANSFERASE 13 U/L (12-78); ALBUMIN 2.6 G/DL (3.4-5.0); ALBUMIN/GLOBULIN RATIO 0.7 (1.1-1.5); ALKALINE PHOSPHATASE 191 IU/L (46-116); ANION GAP 11 (8-16); ASPARTATE AMINO TRANSFERASE 24 U/L (10-37); BILIRUBIN,TOTAL 0.6 MG/DL (0.1-1.0); BLOOD UREA NITROGEN 53 MG/DL (7-18); BUN/CREATININE RATIO 8.7 (5.4-32.0); CHLORIDE 97 MMOL/L (99-107); CREATININE 6.08 MG/DL (0.60-1.10); GLUCOSE 102 MG/DL (70-104); MAGNESIUM 1.9 MG/DL (1.5-2.4); POTASSIUM 3.7 MMOL/L (3.5-5.1); SODIUM 135 MMOL/L (135-145); TOTAL CARBON DIOXIDE 26.7 MMOL/L (24-32); TOTAL PROTEIN 6.5 G/DL (6.4-8.2); eGFR 9 ML/MIN
[2017-12-30] MEDS: furosemide 10 MG/1 ML 10ml inj IV SCH ×4 (02:03→18:05)
[2017-12-30 02:15] LABS: ANISOCYTOSIS 3+; PLATELET ESTIMATE NORMAL; POLYCHROMASIA 1+; TARGET CELLS FEW
[2017-12-30 02:16] LABS: ELLIPTOCYTES 1+
[2017-12-30 03:14] LABS: PARTIAL THROMBOPLASTIN TIME 76 SECONDS (22-32)
[2017-12-30] MEDS: levalbuterol 0.63mg/3ml nebule IH SCH ×4 (03:20→21:29)
[2017-12-30 04:12] LABS: PARTIAL THROMBOPLASTIN TIME 39 SECONDS (22-32)
[2017-12-30] MEDS: aspirin 81mg tab.chew PO SCH (07:33)
[2017-12-30] MEDS: folic acid 1mg tablet PO SCH (07:33)
[2017-12-30] MEDS: docusate sod 100mg capsule PO SCH ×2 (07:33→19:20)
[2017-12-30] MEDS: carVEDilol 3.125mg tablet PO SCH ×2 (07:33→19:20)
[2017-12-30] MEDS: apixaban 5mg tablet PO SCH ×2 (07:33→19:20)
[2017-12-30] MEDS: thiamine 100mg tablet PO SCH (07:34)
[2017-12-30] MEDS: DOPamine 400mg/D5W 250ml 250 ML IV SCH (08:22)
[2017-12-30] MEDS ORDERED: normal saline 1000ml 250 ML IV PRN (08:30)
[2017-12-30] MEDS ORDERED: heparin 1,000unit/ml 10ml vial 10 ML IV ONE (08:30)
[2017-12-30] MEDS ORDERED: heparin 1,000 units/ml 10ml inj HE ONE ×2 (08:35)
[2017-12-30 14:06] LABS: OXYGEN SATURATION (MIXED VEN) 70.5 % (60-80); PO2 MIXED VENOUS (TEMP COR) 37.1 mmHg (35-46)
[2017-12-30] MEDS: gabapentin 300mg capsule PO SCH (21:40)
[2017-12-31] VITALS (18 sets, daily range): BP systolic 68–150; BP diastolic 49–98
[2017-12-31] MEDS: furosemide 10 MG/1 ML 10ml inj IV SCH ×2 (00:17→08:00)
[2017-12-31] MEDS: levalbuterol 0.63mg/3ml nebule IH SCH ×4 (03:00→21:09)
[2017-12-31 03:10] LABS: BASOPHILS % (AUTO) 0.2 % (0-1); EOSINOPHILS % (AUTO) 0.1 % (0-6); HEMATOCRIT 30.5 % (42.0-52.0); HEMOGLOBIN 9.3 g/dl (14.0-17.9); LYMPHOCYTES # (AUTO) 0.7 X10'3 (1.1-4.8); LYMPHOCYTES % (AUTO) 8.3 % (21-51); MEAN CORPUSCULAR HEMOGLOBIN 25.5 PG (27.0-31.0); MEAN CORPUSCULAR HGB CONC 30.4 % (33.0-36.5); MEAN CORPUSCULAR VOLUME 83.9 FL (78-98); MONOCYTES # (AUTO) 0.9 X10'3 (0-0.9); MONOCYTES % (AUTO) 10.8 % (2-12); NEUTROPHILS # (AUTO) 6.7 X10'3 (1.8-7.7); NEUTROPHILS % (AUTO) 80.6 % (42-75); PLATELET COUNT 268 X10'3 (140-440); RED BLOOD COUNT 3.63 X10'6 (4.70-6.10); RED CELL DISTRIBUTION WIDTH 21.5 % (11.5-14.5); WHITE BLOOD COUNT 8.3 X10'3 (4.5-11.0)
[2017-12-31 03:13] LABS: ALANINE AMINOTRANSFERASE 16 U/L (12-78); ALBUMIN 2.7 G/DL (3.4-5.0); ALBUMIN/GLOBULIN RATIO 0.7 (1.1-1.5); ALKALINE PHOSPHATASE 170 IU/L (46-116); ANION GAP 7 (8-16); ASPARTATE AMINO TRANSFERASE 25 U/L (10-37); BILIRUBIN,TOTAL 0.6 MG/DL (0.1-1.0); BLOOD UREA NITROGEN 31 MG/DL (7-18); BUN/CREATININE RATIO 8.4 (5.4-32.0); CALCIUM 7.5 MG/DL (8.5-10.1); CHLORIDE 100 MMOL/L (99-107); CREATININE 3.69 MG/DL (0.60-1.10); GLUCOSE 78 MG/DL (70-104); POTASSIUM 3.7 MMOL/L (3.5-5.1); SODIUM 137 MMOL/L (135-145); TOTAL CARBON DIOXIDE 29.7 MMOL/L (24-32); TOTAL PROTEIN 6.6 G/DL (6.4-8.2); eGFR 17 ML/MIN
[2017-12-31 03:17] LABS: LARGE PLATELETS FEW; PLATELET ESTIMATE NORMAL
[2017-12-31 03:18] LABS: ANISOCYTOSIS 3+; ELLIPTOCYTES FEW; POLYCHROMASIA FEW; TARGET CELLS FEW
[2017-12-31 03:36] LABS: PARTIAL THROMBOPLASTIN TIME 50 SECONDS (22-32)
[2017-12-31 05:23] LABS: HBSAG SCREEN Negative (Negative)
[2017-12-31] MEDS: thiamine 100mg tablet PO SCH (08:38)
[2017-12-31] MEDS: docusate sod 100mg capsule PO SCH ×2 (08:38→19:48)
[2017-12-31] MEDS: gabapentin 300mg capsule PO SCH ×3 (08:38→19:49)
[2017-12-31] MEDS: folic acid 1mg tablet PO SCH (08:38)
[2017-12-31] MEDS: apixaban 5mg tablet PO SCH (08:38)
[2017-12-31] MEDS: aspirin 81mg tab.chew PO SCH (08:38)
[2017-12-31] MEDS: carVEDilol 3.125mg tablet PO SCH (08:38)
[2017-12-31] MEDS ORDERED: normal saline 1000ml 1,000 ML IVB ONE (11:35)
[2017-12-31] MEDS: NORMAL SALINE IV SCH (12:00)
[2017-12-31] MEDS: HEPARIN IV SCH (12:00)
[2017-12-31] MEDS: normal saline 1000ml 1,000 ML IV SCH (14:19)
[2017-12-31] MEDS: furosemide 40mg tablet PO SCH (16:08)
[2017-12-31] MEDS: carvedilol 6.25mg tablet PO SCH ×2 (17:50→17:56)
[2017-12-31] MEDS ORDERED: HYDROcodone/acetaminophen 5mg/325mg tablet PO PRN (21:00)
[2017-12-31] MEDS: HYDROcodone/acetaminophen 10/325mg tab PO PRN (21:22)
[2017-12-31] MEDS ORDERED: heparin, porcine 5000 units/ml vial SQ ONE (22:25)
[2017-12-31] MEDS ORDERED: metoprolol tartrate 1mg/ml inj IV ONE (22:25)
[2017-12-31] MEDS ORDERED: acetaminophen 325mg tablet PO ONE (23:25)
[2018-01-01] VITALS (22 sets, daily range): BP systolic 69–117; BP diastolic 33–93
[2018-01-01] MEDS: levalbuterol 0.63mg/3ml nebule IH SCH ×4 (03:11→20:46)
[2018-01-01] MEDS ORDERED: amiodarone 150mg/dext, iso-os 100 ML IV ONE (03:25)
[2018-01-01] MEDS: amiodarone/D5 360MG/200ML BAG 200 ML IV SCH ×4 (04:25→22:27)
[2018-01-01] MEDS ORDERED: albumin (human) 25% 100ml IV 100 ML IV ONE ×2 (06:53→06:55)
[2018-01-01 07:59] LABS: BASOPHILS % (AUTO) 0.3 % (0-1); EOSINOPHILS # (AUTO) 0.1 X10'3 (0-0.9); EOSINOPHILS % (AUTO) 1.4 % (0-6); HEMATOCRIT 32.3 % (42.0-52.0); HEMOGLOBIN 9.6 g/dl (14.0-17.9); LYMPHOCYTES # (AUTO) 0.8 X10'3 (1.1-4.8); LYMPHOCYTES % (AUTO) 9.6 % (21-51); MEAN CORPUSCULAR HEMOGLOBIN 25.7 PG (27.0-31.0); MEAN CORPUSCULAR HGB CONC 29.8 % (33.0-36.5); MEAN CORPUSCULAR VOLUME 86.1 FL (78-98); MEAN PLATELET VOLUME 8.7 FL (7.4-10.4); MONOCYTES # (AUTO) 0.9 X10'3 (0-0.9); MONOCYTES % (AUTO) 10.8 % (2-12); NEUTROPHILS # (AUTO) 6.6 X10'3 (1.8-7.7); NEUTROPHILS % (AUTO) 77.9 % (42-75); PLATELET COUNT 264 X10'3 (140-440); RED BLOOD COUNT 3.75 X10'6 (4.70-6.10); RED CELL DISTRIBUTION WIDTH 22.1 % (11.5-14.5); WHITE BLOOD COUNT 8.4 X10'3 (4.5-11.0)
[2018-01-01] MEDS: carvedilol 6.25mg tablet PO SCH (08:00)
[2018-01-01] MEDS: furosemide 40mg tablet PO SCH ×4 (08:00→23:44)
[2018-01-01 08:03] LABS: ANISOCYTOSIS 3+; HYPOCHROMASIA 1+; PLATELET ESTIMATE NORMAL
[2018-01-01 08:04] LABS: SPHEROCYTES FEW
[2018-01-01 08:05] LABS: ALANINE AMINOTRANSFERASE 16 U/L (12-78); ALBUMIN 2.6 G/DL (3.4-5.0); ALBUMIN/GLOBULIN RATIO 0.6 (1.1-1.5); ALKALINE PHOSPHATASE 159 IU/L (46-116); ANION GAP 8 (8-16); ASPARTATE AMINO TRANSFERASE 25 U/L (10-37); BILIRUBIN,TOTAL 0.4 MG/DL (0.1-1.0); BLOOD UREA NITROGEN 47 MG/DL (7-18); BUN/CREATININE RATIO 10.4 (5.4-32.0); CALCIUM 7.8 MG/DL (8.5-10.1); CHLORIDE 100 MMOL/L (99-107); GLUCOSE 87 MG/DL (70-104); SODIUM 138 MMOL/L (135-145); TOTAL CARBON DIOXIDE 29.9 MMOL/L (24-32); eGFR 13 ML/MIN
[2018-01-01 08:11] LABS: PARTIAL THROMBOPLASTIN TIME 41 SECONDS (22-32)
[2018-01-01] MEDS: docusate sod 100mg capsule PO SCH ×2 (09:08→20:24)
[2018-01-01] MEDS: heparin, porcine 5000 units/ml vial SQ SCH ×2 (09:08→20:23)
[2018-01-01] MEDS: folic acid 1mg tablet PO SCH (09:09)
[2018-01-01] MEDS: gabapentin 300mg capsule PO SCH ×2 (09:09→20:23)
[2018-01-01] MEDS: carVEDilol 3.125mg tablet PO SCH (20:00)
[2018-01-01] MEDS: thiamine 100mg tablet PO SCH (20:23)
[2018-01-02] VITALS (20 sets, daily range): BP systolic 77–126; BP diastolic 42–81
[2018-01-02] MEDS: amiodarone/D5 360MG/200ML BAG 200 ML IV SCH ×4 (02:11→20:08)
[2018-01-02] MEDS: levalbuterol 0.63mg/3ml nebule IH SCH ×4 (03:00→21:03)
[2018-01-02] MEDS: HYDROcodone/acetaminophen 10/325mg tab PO PRN ×3 (03:09→20:23)
[2018-01-02] MEDS: normal saline 1000ml 1,000 ML IV SCH (05:12)
[2018-01-02 05:33] LABS: BASOPHILS % (AUTO) 0 % (0-1); EOSINOPHILS % (AUTO) 0.2 % (0-6); LYMPHOCYTES # (AUTO) 0.7 X10'3 (1.1-4.8); LYMPHOCYTES % (AUTO) 8.3 % (21-51); MEAN PLATELET VOLUME 9.2 FL (7.4-10.4); MONOCYTES # (AUTO) 0.9 X10'3 (0-0.9); MONOCYTES % (AUTO) 10.5 % (2-12); NEUTROPHILS # (AUTO) 6.9 X10'3 (1.8-7.7); PLATELET COUNT 252 X10'3 (140-440); WHITE BLOOD COUNT 8.5 X10'3 (4.5-11.0)
[2018-01-02 05:41] LABS: ALANINE AMINOTRANSFERASE 15 U/L (12-78); ALBUMIN 2.8 G/DL (3.4-5.0); ALBUMIN/GLOBULIN RATIO 0.7 (1.1-1.5); ALKALINE PHOSPHATASE 150 IU/L (46-116); ANION GAP 12 (8-16); ASPARTATE AMINO TRANSFERASE 22 U/L (10-37); BILIRUBIN,TOTAL 0.3 MG/DL (0.1-1.0); BLOOD UREA NITROGEN 54 MG/DL (7-18); BUN/CREATININE RATIO 11.1 (5.4-32.0); CALCIUM 7.5 MG/DL (8.5-10.1); CHLORIDE 97 MMOL/L (99-107); CREATININE 4.85 MG/DL (0.60-1.10); GLUCOSE 84 MG/DL (70-104); SODIUM 137 MMOL/L (135-145); TOTAL CARBON DIOXIDE 28.3 MMOL/L (24-32); eGFR 12 ML/MIN
[2018-01-02 05:46] LABS: HEMATOCRIT 30.4 % (42.0-52.0); HEMOGLOBIN 9.2 g/dl (14.0-17.9); MEAN CORPUSCULAR HEMOGLOBIN 25.8 PG (27.0-31.0); MEAN CORPUSCULAR HGB CONC 30.2 % (33.0-36.5); MEAN CORPUSCULAR VOLUME 85.5 FL (78-98); RED BLOOD COUNT 3.56 X10'6 (4.70-6.10); RED CELL DISTRIBUTION WIDTH 21.7 % (11.5-14.5)
[2018-01-02 06:53] LABS: ANISOCYTOSIS 3+; HYPOCHROMASIA 1+; PLATELET ESTIMATE NORMAL; TOTAL CELLS COUNTED 100
[2018-01-02 06:54] LABS: POIKILOCYTOSIS 1+; POLYCHROMASIA 2+; TARGET CELLS 1+
[2018-01-02] MEDS: folic acid 1mg tablet PO SCH (08:15)
[2018-01-02] MEDS: docusate sod 100mg capsule PO SCH ×2 (08:15→20:01)
[2018-01-02] MEDS: gabapentin 300mg capsule PO SCH ×2 (08:15→20:02)
[2018-01-02] MEDS: thiamine 100mg tablet PO SCH ×2 (08:16→20:02)
[2018-01-02] MEDS: furosemide 40mg tablet PO SCH (08:16)
[2018-01-02] MEDS: carVEDilol 3.125mg tablet PO SCH (08:18)
[2018-01-02] MEDS: heparin, porcine 5000 units/ml vial SQ SCH ×2 (08:19→20:02)
[2018-01-02] MEDS: carvedilol 6.25mg tablet PO SCH ×2 (09:03→20:01)
[2018-01-02 09:06] LABS: ABG HCO3 31.7 mmol/L (22.0-26.0); ABG OXYGEN SATURATION 91.9 % (95-98); ABG PCO2 (T) 92.8 mmHg (35.0-48.0); ABG PH (T) 7.151 (7.350-7.450); ABG PO2 (T) 72.6 mmHg (83-108); ALLEN'S TEST Positive; FCOHb 0.1 % (0.5-1.5); FLOW 3 L/min; FMetHb 0.5 % (0.3-1.12); FO2Hb 91.3 % (94-100); TOTAL HEMOGLOBIN 10.5 G/dl (14.0-18.0)
[2018-01-02] MEDS ORDERED: diltiazem 5mg/ml 5ml inj. IV ONE (10:55)
[2018-01-02] MEDS ORDERED: digoxin 250mcg/ml 2ml ampule IV ONE ×2 (11:30→11:50)
[2018-01-02 13:20] LABS: ABG BASE EXCESS -0.1 mmol/L (-2.0-3.0); ABG HCO3 30.5 mmol/L (22.0-26.0); ABG OXYGEN SATURATION 90.2 % (95-98); ABG PCO2 (T) 90.8 mmHg (35.0-48.0); ABG PH (T) 7.144 (7.350-7.450); ABG PO2 (T) 67.3 mmHg (83-108); ALLEN'S TEST Positive; FCOHb 0.3 % (0.5-1.5); FLOW 3 L/min; FMetHb 0.4 % (0.3-1.12); FO2Hb 89.6 % (94-100); TOTAL HEMOGLOBIN 10.6 G/dl (14.0-18.0)
[2018-01-02] MEDS ORDERED: furosemide 20MG tablet PO SCH (20:00)
[2018-01-02 23:31] LABS: ABG BASE EXCESS -0.8 mmol/L (-2.0-3.0); ABG HCO3 27.7 mmol/L (22.0-26.0); ABG OXYGEN SATURATION 97.5 % (95-98); ABG PCO2 (T) 69.8 mmHg (35.0-48.0); ABG PH (T) 7.217 (7.350-7.450); ABG PO2 (T) 106.5 mmHg (83-108); FCOHb 0.3 % (0.5-1.5); FMetHb 0.4 % (0.3-1.12); FO2Hb 96.8 % (94-100); MINUTE VOLUME 11 L/min; RESPIRATORY RATE 18 b/min; RESPIRATORY RATE (OBSERVED) 21 b/min; TIDAL VOLUME 600 mL; TOTAL HEMOGLOBIN 9.3 G/dl (14.0-18.0)
[2018-01-03] VITALS (24 sets, daily range): BP systolic 74–155; BP diastolic 40–97
[2018-01-03] MEDS: levalbuterol 0.63mg/3ml nebule IH SCH ×4 (02:10→21:08)
[2018-01-03] MEDS: amiodarone/D5 360MG/200ML BAG 200 ML IV SCH (03:57)
[2018-01-03] MEDS: HYDROcodone/acetaminophen 10/325mg tab PO PRN (03:58)
[2018-01-03 05:50] LABS: ALANINE AMINOTRANSFERASE 14 U/L (12-78); ALBUMIN 2.5 G/DL (3.4-5.0); ALBUMIN/GLOBULIN RATIO 0.6 (1.1-1.5); ALKALINE PHOSPHATASE 141 IU/L (46-116); ANION GAP 11 (8-16); ASPARTATE AMINO TRANSFERASE 20 U/L (10-37); BILIRUBIN,TOTAL 0.3 MG/DL (0.1-1.0); BLOOD UREA NITROGEN 63 MG/DL (7-18); BUN/CREATININE RATIO 12.2 (5.4-32.0); CALCIUM 7.2 MG/DL (8.5-10.1); CHLORIDE 98 MMOL/L (99-107); CREATININE 5.18 MG/DL (0.60-1.10); GLUCOSE 90 MG/DL (70-104); POTASSIUM 4.3 MMOL/L (3.5-5.1); SODIUM 137 MMOL/L (135-145); TOTAL CARBON DIOXIDE 28.2 MMOL/L (24-32); TOTAL PROTEIN 6.7 G/DL (6.4-8.2); eGFR 11 ML/MIN
[2018-01-03 06:24] LABS: HEMATOCRIT 30.5 % (42.0-52.0); HEMOGLOBIN 9.2 g/dl (14.0-17.9); MEAN CORPUSCULAR HEMOGLOBIN 25.9 PG (27.0-31.0); MEAN CORPUSCULAR HGB CONC 30.1 % (33.0-36.5); MEAN CORPUSCULAR VOLUME 86.2 FL (78-98); MEAN PLATELET VOLUME 9.1 FL (7.4-10.4); PLATELET COUNT 246 X10'3 (140-440); RED BLOOD COUNT 3.54 X10'6 (4.70-6.10); RED CELL DISTRIBUTION WIDTH 21.8 % (11.5-14.5)
[2018-01-03 06:25] LABS: BASOPHILS % (AUTO) 0.1 % (0-1); EOSINOPHILS # (AUTO) 0.2 X10'3 (0-0.9); EOSINOPHILS % (AUTO) 2.9 % (0-6); LYMPHOCYTES # (AUTO) 1.2 X10'3 (1.1-4.8); LYMPHOCYTES % (AUTO) 17.3 % (21-51); MONOCYTES # (AUTO) 0.6 X10'3 (0-0.9); MONOCYTES % (AUTO) 9.2 % (2-12); NEUTROPHILS # (AUTO) 4.8 X10'3 (1.8-7.7); NEUTROPHILS % (AUTO) 70.5 % (42-75); WHITE BLOOD COUNT 6.8 X10'3 (4.5-11.0)
[2018-01-03 06:45] LABS: ANISOCYTOSIS 3+; PLATELET ESTIMATE NORMAL; TOTAL CELLS COUNTED 100
[2018-01-03 06:46] LABS: HYPOCHROMASIA 1+; LARGE PLATELETS FEW; POLYCHROMASIA 2+; TARGET CELLS FEW
[2018-01-03 06:47] LABS: POIKILOCYTOSIS 1+
[2018-01-03] MEDS: heparin, porcine 5000 units/ml vial SQ SCH (07:19)
[2018-01-03] MEDS: thiamine 100mg tablet PO SCH ×2 (07:19→19:32)
[2018-01-03] MEDS: gabapentin 300mg capsule PO SCH ×2 (07:19→19:32)
[2018-01-03] MEDS: docusate sod 100mg capsule PO SCH ×2 (07:20→19:32)
[2018-01-03] MEDS: folic acid 1mg tablet PO SCH (07:20)
[2018-01-03 07:31] LABS: PHOSPHORUS 5.7 MG/DL (2.3-4.5)
[2018-01-03] MEDS ORDERED: NORepinephrine 8mg/ 250ml NS 250 ML IV SCH ×2 (07:45→11:30)
[2018-01-03] MEDS: carvedilol 6.25mg tablet PO SCH ×2 (08:00→19:33)
[2018-01-03] MEDS ORDERED: methylPREDNISolone sod succ 125mg/2ml vial IV ONE (08:40)
[2018-01-03] MEDS: amiodarone 200mg tablet PO SCH ×2 (08:59→19:33)
[2018-01-03 10:01] LABS: ABG BASE EXCESS -0.2 mmol/L (-2.0-3.0); ABG HCO3 29.2 mmol/L (22.0-26.0); ABG OXYGEN SATURATION 97.2 % (95-98); ABG PCO2 (T) 77.6 mmHg (35.0-48.0); ABG PH (T) 7.193 (7.350-7.450); ABG PO2 (T) 105.6 mmHg (83-108); ALLEN'S TEST Positive; FCOHb 0.3 % (0.5-1.5); FMetHb 0.5 % (0.3-1.12); FO2Hb 96.4 % (94-100); PATIENT TEMPERATURE 36.8
[2018-01-03] MEDS ORDERED: heparin 1,000unit/ml 10ml vial 10 ML IV ONE (10:04)
[2018-01-03] MEDS ORDERED: heparin 1,000 units/ml 10ml inj IV ONE (10:05)
[2018-01-03] MEDS ORDERED: epoetin 20,000 units/ml inj IV ONE (10:05)
[2018-01-03] MEDS ORDERED: albumin (human) 25% 100ml IV 100 ML IV PRN (10:05)
[2018-01-03] MEDS ORDERED: heparin 1,000 units/ml 10ml inj HE ONE ×2 (10:10)
[2018-01-03 10:22] LABS: CLARITY,URINE CLOUDY (Clear); COLOR,URINE YELLOW (Yellow); GLUCOSE, URINE NEGATIVE (Neg); KETONES,URINE NEGATIVE (Neg); LEUKOCYTE ESTERASE ,URINE MODERATE (Neg); NITRITES, URINE POSITIVE (Neg); OCCULT BLOOD,URINE LARGE (Neg); PH,URINE 7.5 (4.8-8.0); PROTEIN,URINE 100 mg/dl (Neg); UROBILINOGEN,URINE 0.2 E.U/dL (0.2-1.0)
[2018-01-03 10:29] LABS: UA COLLECTION TYPE NON-SPECIFIED
[2018-01-03 10:30] LABS: WBC,URINE TNTC /HPF (0-4)
[2018-01-03 10:31] LABS: BACTERIA,URINE 2+ /HPF (Neg); RBC,URINE TNTC /HPF (0-2); SQUAMOUS EPITHELIAL CELL,UR FEW /LPF (FEW)
[2018-01-03 10:50] LABS: BILIRUBIN,DIRECT 0.1 MG/DL (0-0.3)
[2018-01-03] MEDS ORDERED: digoxin 250mcg/ml 2ml ampule IV ONE (11:30)
[2018-01-03] MEDS ORDERED: levoFLOXACIN-Levaquin 500mg/D5 100 ML IV ONE (12:20)
[2018-01-03] MEDS: calcium acetate 667mg (PhosLO) capsule PO SCH ×2 (13:00→18:46)
[2018-01-03] MEDS: methylPREDNISolone sod succ/PF 40mg inj. IV SCH ×2 (17:03→19:32)
[2018-01-03] MEDS: normal saline 1000ml 1,000 ML IV SCH (17:10)
[2018-01-03] MEDS: apixaban 5mg tablet PO SCH (19:33)
[2018-01-03] MEDS ORDERED: amiodarone 200mg tablet PO SCH (20:00)
[2018-01-04] VITALS (24 sets, daily range): BP systolic 110–164; BP diastolic 38–105
[2018-01-04] MEDS: methylPREDNISolone sod succ/PF 40mg inj. IV SCH ×4 (02:03→20:18)
[2018-01-04] MEDS: levalbuterol 0.63mg/3ml nebule IH SCH ×4 (02:34→21:09)
[2018-01-04 06:38] LABS: HEMATOCRIT 28.6 % (42.0-52.0); HEMOGLOBIN 8.7 g/dl (14.0-17.9); MEAN CORPUSCULAR HEMOGLOBIN 25.8 PG (27.0-31.0); MEAN CORPUSCULAR HGB CONC 30.4 % (33.0-36.5); MEAN CORPUSCULAR VOLUME 84.8 FL (78-98); MEAN PLATELET VOLUME 9.4 FL (7.4-10.4); PLATELET COUNT 275 X10'3 (140-440); RED BLOOD COUNT 3.38 X10'6 (4.70-6.10); RED CELL DISTRIBUTION WIDTH 22.6 % (11.5-14.5)
[2018-01-04 06:52] LABS: ALANINE AMINOTRANSFERASE 12 U/L (12-78); ALBUMIN 2.5 G/DL (3.4-5.0); ALBUMIN/GLOBULIN RATIO 0.6 (1.1-1.5); ALKALINE PHOSPHATASE 120 IU/L (46-116); ANION GAP 7 (8-16); ASPARTATE AMINO TRANSFERASE 16 U/L (10-37); BILIRUBIN,TOTAL 0.2 MG/DL (0.1-1.0); CALCIUM 8.5 MG/DL (8.5-10.1); CHLORIDE 100 MMOL/L (99-107); CREATININE 2.84 MG/DL (0.60-1.10); GLUCOSE 137 MG/DL (70-104); POTASSIUM 4.2 MMOL/L (3.5-5.1); SODIUM 137 MMOL/L (135-145); TOTAL CARBON DIOXIDE 29.7 MMOL/L (24-32); TOTAL PROTEIN 6.8 G/DL (6.4-8.2); eGFR 23 ML/MIN
[2018-01-04 07:01] LABS: BLOOD UREA NITROGEN 36 MG/DL (7-18); BUN/CREATININE RATIO 12.7 (5.4-32.0)
[2018-01-04 07:16] LABS: NUCLEATED RED BLOOD CELLS 4 /100WBC (0-0); TOTAL CELLS COUNTED 100
[2018-01-04 07:17] LABS: ANISOCYTOSIS 3+; PLATELET ESTIMATE NORMAL
[2018-01-04 07:18] LABS: HYPOCHROMASIA 1+; MICROCYTOSIS 1+; POLYCHROMASIA 1+
[2018-01-04] MEDS: amiodarone 200mg tablet PO SCH ×2 (07:37→20:18)
[2018-01-04] MEDS: carvedilol 6.25mg tablet PO SCH ×2 (07:37→20:18)
[2018-01-04] MEDS: calcium acetate 667mg (PhosLO) capsule PO SCH ×3 (07:37→18:37)
[2018-01-04] MEDS: docusate sod 100mg capsule PO SCH ×2 (07:38→20:18)
[2018-01-04] MEDS: gabapentin 300mg capsule PO SCH ×2 (07:38→20:18)
[2018-01-04] MEDS: apixaban 5mg tablet PO SCH ×2 (07:38→20:18)
[2018-01-04] MEDS: thiamine 100mg tablet PO SCH ×2 (07:38→20:22)
[2018-01-04] MEDS: folic acid 1mg tablet PO SCH (07:38)
[2018-01-05] VITALS (18 sets, daily range): BP systolic 111–157; BP diastolic 67–102
[2018-01-05] MEDS: methylPREDNISolone sod succ/PF 40mg inj. IV SCH ×3 (02:12→13:11)
[2018-01-05] MEDS: levalbuterol 0.63mg/3ml nebule IH SCH ×3 (03:00→15:53)
[2018-01-05 05:26] LABS: BASOPHILS % (AUTO) 0 % (0-1); EOSINOPHILS # (AUTO) 0.1 X10'3 (0-0.9); EOSINOPHILS % (AUTO) 0.8 % (0-6); LYMPHOCYTES # (AUTO) 0.4 X10'3 (1.1-4.8); LYMPHOCYTES % (AUTO) 4.5 % (21-51); MEAN CORPUSCULAR HEMOGLOBIN 25.5 PG (27.0-31.0); MEAN CORPUSCULAR HGB CONC 30.1 % (33.0-36.5); MEAN CORPUSCULAR VOLUME 84.8 FL (78-98); MEAN PLATELET VOLUME 9.2 FL (7.4-10.4); MONOCYTES # (AUTO) 0.1 X10'3 (0-0.9); MONOCYTES % (AUTO) 1.8 % (2-12); NEUTROPHILS # (AUTO) 7.3 X10'3 (1.8-7.7); NEUTROPHILS % (AUTO) 92.9 % (42-75); PLATELET COUNT 315 X10'3 (140-440); RED BLOOD COUNT 3.54 X10'6 (4.70-6.10); RED CELL DISTRIBUTION WIDTH 22.1 % (11.5-14.5); WHITE BLOOD COUNT 7.9 X10'3 (4.5-11.0)
[2018-01-05 05:55] LABS: INR 1.2 INR; PROTHROMBIN TIME 11.7 SECONDS (9.0-12.0)
[2018-01-05 05:59] LABS: ALANINE AMINOTRANSFERASE 15 U/L (12-78); ALBUMIN 2.6 G/DL (3.4-5.0); ALBUMIN/GLOBULIN RATIO 0.6 (1.1-1.5); ALKALINE PHOSPHATASE 117 IU/L (46-116); ANION GAP 7 (8-16); ASPARTATE AMINO TRANSFERASE 11 U/L (10-37); BILIRUBIN,TOTAL 0.3 MG/DL (0.1-1.0); BLOOD UREA NITROGEN 53 MG/DL (7-18); BUN/CREATININE RATIO 16.1 (5.4-32.0); CALCIUM 8.6 MG/DL (8.5-10.1); CHLORIDE 102 MMOL/L (99-107); GLUCOSE 127 MG/DL (70-104); MAGNESIUM 2.2 MG/DL (1.5-2.4); PHOSPHORUS 3.4 MG/DL (2.3-4.5); POTASSIUM 4.4 MMOL/L (3.5-5.1); SODIUM 140 MMOL/L (135-145); TOTAL CARBON DIOXIDE 30.7 MMOL/L (24-32); TOTAL PROTEIN 6.9 G/DL (6.4-8.2); eGFR 19 ML/MIN
[2018-01-05 06:07] LABS: PARTIAL THROMBOPLASTIN TIME 34 SECONDS (22-32)
[2018-01-05 06:24] LABS: PLATELET ESTIMATE NORMAL
[2018-01-05 06:25] LABS: ANISOCYTOSIS 3+; ELLIPTOCYTES FEW; HYPOCHROMASIA 1+; TARGET CELLS 1+
[2018-01-05] MEDS ORDERED: albumin (human) 25% 100ml IV 100 ML IV PRN (08:00)
[2018-01-05] MEDS ORDERED: heparin 1,000 units/ml 10ml inj HE ONE ×2 (08:00)
[2018-01-05] MEDS ORDERED: heparin 1,000unit/ml 10ml vial 10 ML IV ONE (08:00)
[2018-01-05] MEDS ORDERED: epoetin 20,000 units/ml inj IV ONE (08:00)
[2018-01-05] MEDS ORDERED: normal saline 1000ml 250 ML IV PRN (08:00)
[2018-01-05] MEDS: calcium acetate 667mg (PhosLO) capsule PO SCH ×2 (08:56→13:11)
[2018-01-05] MEDS: thiamine 100mg tablet PO SCH (08:56)
[2018-01-05] MEDS: carvedilol 6.25mg tablet PO SCH (08:56)
[2018-01-05] MEDS: gabapentin 300mg capsule PO SCH (08:56)
[2018-01-05] MEDS: amiodarone 200mg tablet PO SCH (08:56)
[2018-01-05] MEDS: docusate sod 100mg capsule PO SCH (08:56)
[2018-01-05] MEDS: apixaban 5mg tablet PO SCH (08:56)
[2018-01-05] MEDS: folic acid 1mg tablet PO SCH (08:57)
== END 2018-01-05 18:06 | DRG 682 ==
LOC: ER 14:23 → ED HOLD 16:10 → PCU 3S 19:10 → CICU 2S 12-29 10:33 → ICU 2S 12-30 17:09 → PCU 3S 12-31 14:45 → CICU 2S 01-02 15:30
PROVIDERS: ADMIT Internal Medicine; ATTEND Internal Medicine Critical Care Medicine
PROC: 5A1D70Z Performance of Urinary Filtration, Intermittent, Less than 6 Hours Per Day (ICD-10-PCS; 2017-12-29)
PROC: 5A09357 Assistance with Respiratory Ventilation, Less than 24 Consecutive Hours, Continuous Positive Airway Pressure (ICD-10-PCS; 2017-12-29)
PROC: 02HV33Z Insertion of Infusion Device into Superior Vena Cava, Percutaneous Approach (ICD-10-PCS; 2017-12-29)
PROC: 5A1D70Z Performance of Urinary Filtration, Intermittent, Less than 6 Hours Per Day (ICD-10-PCS; 2017-12-30)
PROC: 5A09357 Assistance with Respiratory Ventilation, Less than 24 Consecutive Hours, Continuous Positive Airway Pressure (ICD-10-PCS; 2018-01-01)
PROC: 5A09357 Assistance with Respiratory Ventilation, Less than 24 Consecutive Hours, Continuous Positive Airway Pressure (ICD-10-PCS; 2018-01-02)
PROC: 5A1D70Z Performance of Urinary Filtration, Intermittent, Less than 6 Hours Per Day (ICD-10-PCS; 2018-01-03)
PROC: 5A09357 Assistance with Respiratory Ventilation, Less than 24 Consecutive Hours, Continuous Positive Airway Pressure (ICD-10-PCS; 2018-01-03)
PROC: 5A09357 Assistance with Respiratory Ventilation, Less than 24 Consecutive Hours, Continuous Positive Airway Pressure (ICD-10-PCS; 2018-01-04)
PROC: 5A1D70Z Performance of Urinary Filtration, Intermittent, Less than 6 Hours Per Day (ICD-10-PCS; principal; 2018-01-05)
PROC: 5A09357 Assistance with Respiratory Ventilation, Less than 24 Consecutive Hours, Continuous Positive Airway Pressure (ICD-10-PCS; 2018-01-05)
DX: N17.9 Acute kidney failure, unspecified (principal); I50.23 Acute on chronic systolic (congestive) heart failure; J96.22 Acute and chronic respiratory failure with hypercapnia; Z68.41 Body mass index [BMI] 40.0-44.9, adult; E87.4 Mixed disorder of acid-base balance; I13.0 Hypertensive heart and chronic kidney disease with heart failure and stage 1 through stage 4 chronic kidney disease, or unspecified chronic kidney disease; N39.0 Urinary tract infection, site not specified; J44.9 Chronic obstructive pulmonary disease, unspecified; F10.20 Alcohol dependence, uncomplicated; I48.91 Unspecified atrial fibrillation; N18.3 Chronic kidney disease, stage 3 (moderate); E66.01 Morbid (severe) obesity due to excess calories; D64.9 Anemia, unspecified; R33.9 Retention of urine, unspecified; E78.5 Hyperlipidemia, unspecified; I08.1 Rheumatic disorders of both mitral and tricuspid valves; I25.10 Atherosclerotic heart disease of native coronary artery without angina pectoris; Z95.1 Presence of aortocoronary bypass graft; Z79.82 Long term (current) use of aspirin; Z88.8 Allergy status to other drugs, medicaments and biological substances; Z79.01 Long term (current) use of anticoagulants; Z79.899 Other long term (current) drug therapy
CPT/HCPCS: 36415; 36600; 71045; 76775; 80048; 80053; 80061; 80162; 80202; 80305; 81001; 82248; 82330; 82570; 82803; 82810; 83735; 83880; 84100; 84133; 84156; 84300; 84439; 84443; 84484; 84540; 85018; 85025; 85610; 85730; 87070; 87340; 90935; 93005; 93308; 94640; 94660; 94760; 96374; 97110; 97162; 97530; 99285; G0257; G0378; J0282; J0885; J1160; J1250; J1265; J1644; J1940; J1956; J2060; J2150; J2920; J2930; J3411; J3490; J7030; J7614; P9047

== ENCOUNTER 2018-04-29 09:03 | Inpatient (IN) | payer MEDICARE, MEDICAID | END 2018-05-02 16:00 | disposition home or self-care (01) | LOC: ER 09:03 → ED HOLD 13:22 → PCU 3S 15:21 ==

== ENCOUNTER 2018-05-04 10:47 | Inpatient (IN) | payer MEDICARE, MEDICAID ==
[~2018-05-04] VITALS: Ht 177.8 cm; Wt 144.5 kg
[2018-05-04] VITALS (25 sets, daily range): BP systolic 80–116; BP diastolic 43–90
[~2018-05-04 10:47] MED LIST changes: -AMIO200T40 PO; +CEFD300C3 PO; -DILT30TA5 PO; -HCTZ25T PO; -HYDR-4383 PO; -LEVA0.6319 IH; +LEVA0.6319 NEB; -POTA10TA52; +PRED10TA23 PO; -SIMV10TA2 PO; -TIOT18CA3 IH
[2018-05-04] MEDS ORDERED: normal saline 1000ML IV soln IV ONE (11:15)
[2018-05-04] MEDS ORDERED: tranexamic acid 100mg/ml inj. IV ONE ×2 (11:20→11:25)
[2018-05-04] MEDS ORDERED: tranexamic acid inj. 1,350 MG in normal saline 100ml IV soln 100 ML IV ONE (11:25)
[2018-05-04 11:34] LABS: BASOPHILS % (AUTO) 0.4 % (0-1); EOSINOPHILS % (AUTO) 0 % (0-6); LYMPHOCYTES # (AUTO) 0.3 X10'3 (1.1-4.8); LYMPHOCYTES % (AUTO) 3.3 % (21-51); MEAN CORPUSCULAR HEMOGLOBIN 28.7 PG (27.0-31.0); MEAN CORPUSCULAR HGB CONC 31.4 g/dL (33.0-36.5); MEAN CORPUSCULAR VOLUME 91.3 FL (78-98); MONOCYTES # (AUTO) 0.3 X10'3 (0-0.9); MONOCYTES % (AUTO) 4.4 % (2-12); NEUTROPHILS # (AUTO) 7.1 X10'3 (1.8-7.7); NEUTROPHILS % (AUTO) 91.9 % (42-75); PLATELET COUNT 172 X10'3 (140-440); RED BLOOD COUNT 2.37 X10'6 (4.70-6.10); RED CELL DISTRIBUTION WIDTH 18.2 % (11.5-14.5); WHITE BLOOD COUNT 7.8 X10'3 (4.5-11.0)
[2018-05-04 11:36] LABS: HEMATOCRIT 21.7 % (42.0-52.0); HEMOGLOBIN 6.8 g/dl (14.0-17.9)
[2018-05-04 11:46] LABS: INR 1.1 INR; PARTIAL THROMBOPLASTIN TIME 27 SECONDS (22-32); PROTHROMBIN TIME 10.9 SECONDS (9.0-12.0)
[2018-05-04 11:47] LABS: ALANINE AMINOTRANSFERASE 27 U/L (12-78); ALBUMIN 2.5 G/DL (3.4-5.0); ALBUMIN/GLOBULIN RATIO 0.8 (1.1-1.5); ALKALINE PHOSPHATASE 129 IU/L (46-116); ANION GAP 2 (8-16); ASPARTATE AMINO TRANSFERASE 19 U/L (10-37); BILIRUBIN,TOTAL 0.2 MG/DL (0.1-1.0); BLOOD UREA NITROGEN 49 MG/DL (7-18); BUN/CREATININE RATIO 23.2 (5.4-32.0); CALCIUM 6.9 MG/DL (8.5-10.1); CHLORIDE 108 MMOL/L (99-107); CREATININE 2.11 MG/DL (0.60-1.10); GLUCOSE 114 MG/DL (70-104); POTASSIUM 4.5 MMOL/L (3.5-5.1); SODIUM 142 MMOL/L (135-145); TOTAL CARBON DIOXIDE 32.5 MMOL/L (24-32); TOTAL PROTEIN 5.5 G/DL (6.4-8.2); eGFR 32 ML/MIN
[2018-05-04] MEDS ORDERED: magnesium 2GM in 50ml NS 50 ML IV PRN (12:05)
[2018-05-04] MEDS ORDERED: sodium phosphate inj. 30 MMOL in dextrose 5%-water 250 ML IV PRN (12:05)
[2018-05-04] MEDS ORDERED: ondansetron/PF 4mg/2ml inj IV PRN (12:05)
[2018-05-04] MEDS ORDERED: Neutra Phos packet PO PRN (12:05)
[2018-05-04] MEDS ORDERED: magnesium 4gm in 100ml NS 100 ML IV PRN (12:05)
[2018-05-04] MEDS ORDERED: potassium Cl 20 mEq SR tablet PO PRN ×2 (12:05)
[2018-05-04] MEDS: pantoprazole 40 MG vial IV SCH ×2 (12:05→20:54)
[2018-05-04] MEDS ORDERED: morphine 4 MG/ML inj SYRINge IV PRN ×2 (12:05)
[2018-05-04] MEDS ORDERED: magnesium Cl slow-release 64mg tablet PO PRN (12:05)
[2018-05-04] MEDS ORDERED: sodium phosphate inj. 15 MMOL in dextrose 5%-water 150 ML IV PRN (12:05)
[2018-05-04] MEDS ORDERED: acetaminophen 325mg tablet PO PRN ×2 (12:05)
[2018-05-04] MEDS: normal saline 1000ml 1,000 ML IV SCH ×2 (12:05→18:45)
[2018-05-04 12:37] LABS: AMYLASE 87 U/L (25-115); LIPASE 114 U/L (73-393)
[2018-05-04] MEDS ORDERED: CEFD300C3 PO (13:30)
[2018-05-04] MEDS ORDERED: PRED10TA23 PO (13:30)
[2018-05-04 14:47] LABS: CLARITY,URINE CLEAR (Clear); COLOR,URINE YELLOW (Yellow); GLUCOSE, URINE NEGATIVE (Neg); KETONES,URINE NEGATIVE (Neg); LEUKOCYTE ESTERASE ,URINE NEGATIVE (Neg); NITRITES, URINE NEGATIVE (Neg); OCCULT BLOOD,URINE TRACE-LYSED (Neg); PH,URINE 5.5 (4.8-8.0); PROTEIN,URINE NEGATIVE (Neg); UROBILINOGEN,URINE 0.2 E.U/dL (0.2-1.0)
[2018-05-04 15:01] LABS: BASOPHILS # (AUTO) 0.1 X10'3 (0-0.2); BASOPHILS % (AUTO) 0.8 % (0-1); EOSINOPHILS % (AUTO) 0.1 % (0-6); HEMOGLOBIN 7.1 g/dl (14.0-17.9); LYMPHOCYTES # (AUTO) 0.3 X10'3 (1.1-4.8); LYMPHOCYTES % (AUTO) 4.2 % (21-51); MEAN CORPUSCULAR HEMOGLOBIN 27.7 PG (27.0-31.0); MEAN CORPUSCULAR HGB CONC 30.7 g/dL (33.0-36.5); MEAN CORPUSCULAR VOLUME 90.2 FL (78-98); MEAN PLATELET VOLUME 9.1 FL (7.4-10.4); MONOCYTES # (AUTO) 0.3 X10'3 (0-0.9); MONOCYTES % (AUTO) 3.7 % (2-12); NEUTROPHILS # (AUTO) 6.9 X10'3 (1.8-7.7); NEUTROPHILS % (AUTO) 91.2 % (42-75); PLATELET COUNT 146 X10'3 (140-440); RED BLOOD COUNT 2.55 X10'6 (4.70-6.10); RED CELL DISTRIBUTION WIDTH 18.5 % (11.5-14.5); WHITE BLOOD COUNT 7.5 X10'3 (4.5-11.0)
[2018-05-04 15:06] LABS: UA COLLECTION TYPE CLN CATCH MIDSTREAM
[2018-05-04 15:12] LABS: BACTERIA,URINE NONE SEEN /HPF (Neg); RBC,URINE 0-2 /HPF (0-2); WBC,URINE NONE SEEN /HPF (0-4)
[2018-05-04 15:13] LABS: HYALINE CASTS 0-3 /LPF (NEGATIVE); SQUAMOUS EPITHELIAL CELL,UR NONE SEEN /LPF (FEW)
[2018-05-04] MEDS ORDERED: fentaNYL/PF 50MCG/1 ML 2ML syringe ONE (16:11)
[2018-05-04] MEDS ORDERED: MIDAZolam 5mg/5ml vial ONE (16:11)
--- NOTE | 2018-05-04 17:45 | NUR ---
pt has had multiple bloody bowel movements. MD at bedside to do scope. Pt has put out about 1 L of bloody stool since admission to ICU
--- NOTE | 2018-05-04 17:47 | NUR ---
pt came up from ED, quad lumen central line appeared to be pulled out. Blood noted under dsg. STAT CXR ordered. radiology contacted RN and informed RN line needed to be removed. Notified Dr. Page about central line. Dr. Page requests RN remove line and place another PIV. PIV difficult to place. 18G IV placed with assist of ultrasound. GI RN at bedside
--- NOTE | 2018-05-04 19:15 | NUR ---
RN Note -Coloscopy complete Pt responsive, using bedpan. According to Dr. Gilbert, pt may continue to have some bloody bowel movements from blood still in colon, but there should not not be any more active bleeding. Continue with serial hemograms.
[2018-05-04 20:24] LABS: BASOPHILS % (AUTO) 0.4 % (0-1); EOSINOPHILS % (AUTO) 0 % (0-6); HEMATOCRIT 22.7 % (42.0-52.0); HEMOGLOBIN 7.1 g/dl (14.0-17.9); LYMPHOCYTES # (AUTO) 0.6 X10'3 (1.1-4.8); LYMPHOCYTES % (AUTO) 7.2 % (21-51); MEAN CORPUSCULAR HEMOGLOBIN 28.4 PG (27.0-31.0); MEAN CORPUSCULAR HGB CONC 31.3 g/dL (33.0-36.5); MEAN CORPUSCULAR VOLUME 90.8 FL (78-98); MEAN PLATELET VOLUME 9.6 FL (7.4-10.4); MONOCYTES # (AUTO) 0.4 X10'3 (0-0.9); MONOCYTES % (AUTO) 4.8 % (2-12); NEUTROPHILS # (AUTO) 7.1 X10'3 (1.8-7.7); NEUTROPHILS % (AUTO) 87.6 % (42-75); PLATELET COUNT 117 X10'3 (140-440); RED CELL DISTRIBUTION WIDTH 17.7 % (11.5-14.5); WHITE BLOOD COUNT 8.2 X10'3 (4.5-11.0)
[2018-05-04] MEDS ORDERED: LORazepam 2 mg/ml vial IV PRN (20:50)
[2018-05-04] MEDS: gabapentin 300mg capsule PO SCH (20:58)
--- NOTE | 2018-05-04 22:00 | NUR ---
RN Note -MD Communication Spoke to February Ede about pt's heart rate in the 120's and SBP in the 90's. Order for one unit PRBC
[2018-05-04 22:30] LABS: BASOPHILS % (AUTO) 0.3 % (0-1); EOSINOPHILS % (AUTO) 0.1 % (0-6); HEMATOCRIT 24.7 % (42.0-52.0); HEMOGLOBIN 7.6 g/dl (14.0-17.9); LYMPHOCYTES # (AUTO) 1.1 X10'3 (1.1-4.8); LYMPHOCYTES % (AUTO) 10.2 % (21-51); MEAN CORPUSCULAR HEMOGLOBIN 28.1 PG (27.0-31.0); MEAN CORPUSCULAR HGB CONC 30.9 g/dL (33.0-36.5); MEAN CORPUSCULAR VOLUME 91.1 FL (78-98); MEAN PLATELET VOLUME 9.3 FL (7.4-10.4); MONOCYTES # (AUTO) 0.8 X10'3 (0-0.9); MONOCYTES % (AUTO) 7.7 % (2-12); NEUTROPHILS % (AUTO) 81.7 % (42-75); PLATELET COUNT 126 X10'3 (140-440); RED BLOOD COUNT 2.71 X10'6 (4.70-6.10); RED CELL DISTRIBUTION WIDTH 17.8 % (11.5-14.5)
[2018-05-04] MEDS ORDERED: furosemide 20 MG/2 ML vial IV ONE (22:45)
[2018-05-05] VITALS (18 sets, daily range): BP systolic 90–138; BP diastolic 41–93
[2018-05-05] MEDS ORDERED: HYDROcodone/acetaminophen 10/325mg tab PO PRN (02:30)
[2018-05-05] MEDS: HYDROcodone/acetaminophen 5mg/325mg tablet PO PRN ×2 (03:29→17:12)
[2018-05-05] MEDS: normal saline 1000ml 1,000 ML IV SCH ×2 (03:52→11:40)
[2018-05-05] MEDS: levalbuterol 0.63mg/3ml nebule IH SCH ×4 (04:01→20:09)
[2018-05-05 04:50] LABS: BASOPHILS % (AUTO) 0.5 % (0-1); EOSINOPHILS % (AUTO) 0.1 % (0-6); HEMATOCRIT 24.3 % (42.0-52.0); HEMOGLOBIN 7.8 g/dl (14.0-17.9); LYMPHOCYTES # (AUTO) 1.6 X10'3 (1.1-4.8); LYMPHOCYTES % (AUTO) 17.9 % (21-51); MEAN CORPUSCULAR HEMOGLOBIN 28.9 PG (27.0-31.0); MEAN CORPUSCULAR HGB CONC 32.2 g/dL (33.0-36.5); MEAN CORPUSCULAR VOLUME 89.5 FL (78-98); MEAN PLATELET VOLUME 9.3 FL (7.4-10.4); MONOCYTES # (AUTO) 0.6 X10'3 (0-0.9); MONOCYTES % (AUTO) 6.5 % (2-12); NEUTROPHILS # (AUTO) 6.6 X10'3 (1.8-7.7); PLATELET COUNT 120 X10'3 (140-440); RED BLOOD COUNT 2.72 X10'6 (4.70-6.10); WHITE BLOOD COUNT 8.8 X10'3 (4.5-11.0)
[2018-05-05 05:00] LABS: ALANINE AMINOTRANSFERASE 21 U/L (12-78); ALBUMIN 2.3 G/DL (3.4-5.0); ALBUMIN/GLOBULIN RATIO 0.9 (1.1-1.5); ALKALINE PHOSPHATASE 91 IU/L (46-116); AMYLASE 131 U/L (25-115); ANION GAP 2 (8-16); ASPARTATE AMINO TRANSFERASE 18 U/L (10-37); BILIRUBIN,TOTAL 0.2 MG/DL (0.1-1.0); BLOOD UREA NITROGEN 45 MG/DL (7-18); BUN/CREATININE RATIO 22.3 (5.4-32.0); CALCIUM 6.8 MG/DL (8.5-10.1); CHLORIDE 112 MMOL/L (99-107); CREATININE 2.02 MG/DL (0.60-1.10); GLUCOSE 80 MG/DL (70-104); LIPASE 85 U/L (73-393); MAGNESIUM 1.7 MG/DL (1.5-2.4); PHOSPHORUS 3.4 MG/DL (2.3-4.5); POTASSIUM 4.4 MMOL/L (3.5-5.1); SODIUM 142 MMOL/L (135-145); TOTAL CARBON DIOXIDE 28.1 MMOL/L (24-32); TOTAL PROTEIN 4.8 G/DL (6.4-8.2); eGFR 33 ML/MIN
[2018-05-05 07:53] LABS: BASOPHILS % (AUTO) 0.3 % (0-1); EOSINOPHILS % (AUTO) 0.3 % (0-6); HEMATOCRIT 23.8 % (42.0-52.0); HEMOGLOBIN 7.6 g/dl (14.0-17.9); LYMPHOCYTES # (AUTO) 1.7 X10'3 (1.1-4.8); LYMPHOCYTES % (AUTO) 18.9 % (21-51); MEAN CORPUSCULAR HEMOGLOBIN 28.7 PG (27.0-31.0); MEAN CORPUSCULAR HGB CONC 31.8 g/dL (33.0-36.5); MEAN CORPUSCULAR VOLUME 90.3 FL (78-98); MEAN PLATELET VOLUME 9.6 FL (7.4-10.4); MONOCYTES # (AUTO) 0.7 X10'3 (0-0.9); MONOCYTES % (AUTO) 7.7 % (2-12); NEUTROPHILS # (AUTO) 6.7 X10'3 (1.8-7.7); NEUTROPHILS % (AUTO) 72.8 % (42-75); PLATELET COUNT 146 X10'3 (140-440); RED BLOOD COUNT 2.63 X10'6 (4.70-6.10); RED CELL DISTRIBUTION WIDTH 17.9 % (11.5-14.5); WHITE BLOOD COUNT 9.2 X10'3 (4.5-11.0)
[2018-05-05] MEDS ORDERED: CEFDINIR PO SCH (08:00)
[2018-05-05] MEDS: carvedilol 6.25mg tablet PO SCH ×2 (09:02→19:18)
[2018-05-05] MEDS: gabapentin 300mg capsule PO SCH ×3 (09:02→20:07)
[2018-05-05] MEDS: pantoprazole 40 MG vial IV SCH ×2 (09:03→19:18)
[2018-05-05] MEDS: folic acid 1mg tablet PO SCH (09:03)
[2018-05-05] MEDS: multivitamins, therapeutics tablet PO SCH (09:03)
[2018-05-05] MEDS: cefpodoxime proxetil 100mg tablet PO SCH ×2 (09:03→17:07)
[2018-05-05] MEDS: thiamine 100mg tablet PO SCH (09:08)
[2018-05-05] MEDS: predniSONE 20 mg tablet PO SCH (09:08)
[2018-05-05 11:21] LABS: BASOPHILS % (AUTO) 0.5 % (0-1); EOSINOPHILS % (AUTO) 0.1 % (0-6); HEMATOCRIT 24.9 % (42.0-52.0); LYMPHOCYTES # (AUTO) 1.1 X10'3 (1.1-4.8); LYMPHOCYTES % (AUTO) 12.4 % (21-51); MEAN CORPUSCULAR HEMOGLOBIN 29.2 PG (27.0-31.0); MEAN CORPUSCULAR HGB CONC 32.1 g/dL (33.0-36.5); MEAN PLATELET VOLUME 9.3 FL (7.4-10.4); MONOCYTES # (AUTO) 0.7 X10'3 (0-0.9); MONOCYTES % (AUTO) 7.7 % (2-12); NEUTROPHILS % (AUTO) 79.3 % (42-75); PLATELET COUNT 130 X10'3 (140-440); RED BLOOD COUNT 2.73 X10'6 (4.70-6.10); RED CELL DISTRIBUTION WIDTH 17.2 % (11.5-14.5); WHITE BLOOD COUNT 8.8 X10'3 (4.5-11.0)
[2018-05-05 15:26] LABS: PLATELET COUNT 144 X10'3 (140-440)
[2018-05-05 15:27] LABS: HEMATOCRIT 27.4 % (42.0-52.0); HEMOGLOBIN 8.6 g/dl (14.0-17.9); MEAN CORPUSCULAR HEMOGLOBIN 28.7 PG (27.0-31.0); MEAN CORPUSCULAR HGB CONC 31.3 g/dL (33.0-36.5); MEAN PLATELET VOLUME 9.5 FL (7.4-10.4); RED BLOOD COUNT 2.98 X10'6 (4.70-6.10); RED CELL DISTRIBUTION WIDTH 17.5 % (11.5-14.5); WHITE BLOOD COUNT 9.1 X10'3 (4.5-11.0)
--- NOTE | 2018-05-05 15:56 | NUR ---
received report from Kaleb THRASHER; wheeled pt up to PCU with all belongings. pt ambulated to bed 2 PA . VSS.
[2018-05-05 16:02] LABS: ANISOCYTOSIS 1+; PLATELET ESTIMATE NORMAL; TOTAL CELLS COUNTED 100
--- NOTE | 2018-05-05 18:29 | NUR ---
Patient in room PCU 3024. I have received report from Jennifer THRASHER and had the opportunity to ask questions and assume patient care.
--- NOTE | 2018-05-05 18:34 | NUR ---
Problems reprioritized. Patient report given, questions answered & plan of care reviewed with Deniz THRASHER.
[2018-05-05 20:00] LABS: BASOPHILS % (AUTO) 0.1 % (0-1); EOSINOPHILS % (AUTO) 0 % (0-6); HEMATOCRIT 24.5 % (42.0-52.0); HEMOGLOBIN 7.7 g/dl (14.0-17.9); LYMPHOCYTES # (AUTO) 0.5 X10'3 (1.1-4.8); LYMPHOCYTES % (AUTO) 5.7 % (21-51); MEAN CORPUSCULAR HEMOGLOBIN 28.8 PG (27.0-31.0); MEAN CORPUSCULAR HGB CONC 31.6 g/dL (33.0-36.5); MEAN CORPUSCULAR VOLUME 91.3 FL (78-98); MEAN PLATELET VOLUME 9.7 FL (7.4-10.4); MONOCYTES # (AUTO) 0.4 X10'3 (0-0.9); MONOCYTES % (AUTO) 5.2 % (2-12); NEUTROPHILS # (AUTO) 7.7 X10'3 (1.8-7.7); PLATELET COUNT 130 X10'3 (140-440); RED BLOOD COUNT 2.69 X10'6 (4.70-6.10); RED CELL DISTRIBUTION WIDTH 17.3 % (11.5-14.5); WHITE BLOOD COUNT 8.6 X10'3 (4.5-11.0)
[2018-05-06] VITALS (9 sets, daily range): BP systolic 103–156; BP diastolic 72–89
--- NOTE | 2018-05-06 | NUR ---
H &H 6.9 & 21.7, reported to Mirror Framer February. Ordered one unit PRBC.
[2018-05-06 00:25] LABS: BASOPHILS % (AUTO) 0.3 % (0-1); EOSINOPHILS % (AUTO) 0.1 % (0-6); LYMPHOCYTES % (AUTO) 13.1 % (21-51); MEAN CORPUSCULAR HEMOGLOBIN 28.7 PG (27.0-31.0); MEAN CORPUSCULAR HGB CONC 31.7 g/dL (33.0-36.5); MEAN CORPUSCULAR VOLUME 90.5 FL (78-98); MEAN PLATELET VOLUME 9.4 FL (7.4-10.4); MONOCYTES # (AUTO) 0.4 X10'3 (0-0.9); MONOCYTES % (AUTO) 5.6 % (2-12); NEUTROPHILS # (AUTO) 6.5 X10'3 (1.8-7.7); NEUTROPHILS % (AUTO) 80.9 % (42-75); PLATELET COUNT 126 X10'3 (140-440)
[2018-05-06 00:27] LABS: HEMATOCRIT 21.7 % (42.0-52.0); HEMOGLOBIN 6.9 g/dl (14.0-17.9)
[2018-05-06] MEDS: normal saline 1000ml 1,000 ML IV SCH ×3 (01:31→16:52)
[2018-05-06] MEDS: levalbuterol 0.63mg/3ml nebule IH SCH ×4 (03:07→20:22)
--- NOTE | 2018-05-06 06:25 | NUR ---
Problems reprioritized. Patient report given, questions answered & plan of care reviewed with Josh THRASHER.
--- NOTE | 2018-05-06 07:44 | NUR ---
Patient in room PCU 3024. I have received report from Deniz THRASHER and had the opportunity to ask questions and assume patient care.
[2018-05-06] MEDS: multivitamins, therapeutics tablet PO SCH (09:42)
[2018-05-06] MEDS: predniSONE 20 mg tablet PO SCH (09:42)
[2018-05-06] MEDS: folic acid 1mg tablet PO SCH (09:42)
[2018-05-06] MEDS: pantoprazole 40 MG vial IV SCH (09:43)
[2018-05-06] MEDS: cefpodoxime proxetil 100mg tablet PO SCH ×2 (09:43→17:36)
[2018-05-06] MEDS: HYDROcodone/acetaminophen 5mg/325mg tablet PO PRN (09:43)
[2018-05-06] MEDS: carvedilol 6.25mg tablet PO SCH ×2 (09:43→21:30)
[2018-05-06] MEDS: thiamine 100mg tablet PO SCH (09:43)
[2018-05-06] MEDS: gabapentin 300mg capsule PO SCH ×3 (09:44→21:30)
[2018-05-06 10:01] LABS: BASOPHILS % (AUTO) 0.4 % (0-1); EOSINOPHILS % (AUTO) 0.5 % (0-6); HEMATOCRIT 24.9 % (42.0-52.0); LYMPHOCYTES # (AUTO) 1.5 X10'3 (1.1-4.8); MEAN CORPUSCULAR HEMOGLOBIN 28.8 PG (27.0-31.0); MEAN CORPUSCULAR HGB CONC 32.1 g/dL (33.0-36.5); MEAN CORPUSCULAR VOLUME 89.8 FL (78-98); MEAN PLATELET VOLUME 9.1 FL (7.4-10.4); MONOCYTES # (AUTO) 0.6 X10'3 (0-0.9); MONOCYTES % (AUTO) 7.3 % (2-12); NEUTROPHILS # (AUTO) 6.1 X10'3 (1.8-7.7); NEUTROPHILS % (AUTO) 73.8 % (42-75); PLATELET COUNT 145 X10'3 (140-440); RED BLOOD COUNT 2.77 X10'6 (4.70-6.10); RED CELL DISTRIBUTION WIDTH 17.6 % (11.5-14.5); WHITE BLOOD COUNT 8.3 X10'3 (4.5-11.0)
[2018-05-06 10:13] LABS: ALANINE AMINOTRANSFERASE 29 U/L (12-78); ALBUMIN 2.6 G/DL (3.4-5.0); ALBUMIN/GLOBULIN RATIO 0.9 (1.1-1.5); ALKALINE PHOSPHATASE 95 IU/L (46-116); AMYLASE 416 U/L (25-115); ANION GAP 7 (8-16); ASPARTATE AMINO TRANSFERASE 18 U/L (10-37); BILIRUBIN,TOTAL 0.2 MG/DL (0.1-1.0); BLOOD UREA NITROGEN 37 MG/DL (7-18); CHLORIDE 105 MMOL/L (99-107); CREATININE 2.05 MG/DL (0.60-1.10); GLUCOSE 104 MG/DL (70-104); LIPASE 101 U/L (73-393); MAGNESIUM 1.5 MG/DL (1.5-2.4); PHOSPHORUS 3.2 MG/DL (2.3-4.5); POTASSIUM 4.3 MMOL/L (3.5-5.1); SODIUM 140 MMOL/L (135-145); TOTAL CARBON DIOXIDE 28.3 MMOL/L (24-32); TOTAL PROTEIN 5.4 G/DL (6.4-8.2); eGFR 33 ML/MIN
[2018-05-06] MEDS ORDERED: bisacodyl 10mg suppository rectal RC PRN (12:05)
--- NOTE | 2018-05-06 18:27 | NUR ---
Problems reprioritized. Patient report given, questions answered & plan of care reviewed with CAN THRASHER AND KATLIN THRASHER.
[2018-05-06] MEDS: pantoprazole 40mg Tablet.DR PO SCH (21:30)
[2018-05-07] MEDS: levalbuterol 0.63mg/3ml nebule IH SCH ×4 (02:54→21:23)
[2018-05-07 03:00] VITALS: BP 94/48
--- NOTE | 2018-05-07 05:43 | NUR ---
PIV in R wrist infiltrated and d/cd. Attempted to start another PIV x2 without any success
[2018-05-07 06:00] VITALS: BP 146/109
[2018-05-07 06:43] LABS: BASOPHILS % (AUTO) 0.5 % (0-1); EOSINOPHILS % (AUTO) 0.4 % (0-6); HEMATOCRIT 23.4 % (42.0-52.0); HEMOGLOBIN 7.4 g/dl (14.0-17.9); LYMPHOCYTES # (AUTO) 1.6 X10'3 (1.1-4.8); LYMPHOCYTES % (AUTO) 18.5 % (21-51); MEAN CORPUSCULAR HEMOGLOBIN 28.7 PG (27.0-31.0); MEAN CORPUSCULAR HGB CONC 31.7 g/dL (33.0-36.5); MEAN CORPUSCULAR VOLUME 90.6 FL (78-98); MEAN PLATELET VOLUME 9.1 FL (7.4-10.4); MONOCYTES # (AUTO) 0.7 X10'3 (0-0.9); NEUTROPHILS # (AUTO) 6.2 X10'3 (1.8-7.7); NEUTROPHILS % (AUTO) 72.6 % (42-75); PLATELET COUNT 149 X10'3 (140-440); RED BLOOD COUNT 2.58 X10'6 (4.70-6.10); RED CELL DISTRIBUTION WIDTH 16.7 % (11.5-14.5); WHITE BLOOD COUNT 8.6 X10'3 (4.5-11.0)
[2018-05-07 06:52] LABS: ALANINE AMINOTRANSFERASE 30 U/L (12-78); ALBUMIN 2.6 G/DL (3.4-5.0); ALBUMIN/GLOBULIN RATIO 0.9 (1.1-1.5); ALKALINE PHOSPHATASE 99 IU/L (46-116); AMYLASE 483 U/L (25-115); ANION GAP 7 (8-16); ASPARTATE AMINO TRANSFERASE 18 U/L (10-37); BILIRUBIN,TOTAL 0.2 MG/DL (0.1-1.0); BLOOD UREA NITROGEN 33 MG/DL (7-18); BUN/CREATININE RATIO 16.8 (5.4-32.0); CALCIUM 6.9 MG/DL (8.5-10.1); CHLORIDE 105 MMOL/L (99-107); CREATININE 1.96 MG/DL (0.60-1.10); GLUCOSE 96 MG/DL (70-104); LIPASE 97 U/L (73-393); MAGNESIUM 1.7 MG/DL (1.5-2.4); PHOSPHORUS 3.2 MG/DL (2.3-4.5); POTASSIUM 4.2 MMOL/L (3.5-5.1); SODIUM 142 MMOL/L (135-145); TOTAL CARBON DIOXIDE 29.7 MMOL/L (24-32); TOTAL PROTEIN 5.5 G/DL (6.4-8.2); eGFR 34 ML/MIN
--- NOTE | 2018-05-07 07:00 | NUR ---
Assumed pt care Pt have no IV message to PICC RN Have hard stick pt critical low H&H no IV please help [id number] Wilson Micky Gemma RN #[id number]
[2018-05-07] MEDS: cefpodoxime proxetil 100mg tablet PO SCH ×2 (09:10→17:11)
[2018-05-07] MEDS: predniSONE 20 mg tablet PO SCH (09:10)
[2018-05-07] MEDS: thiamine 100mg tablet PO SCH (09:10)
[2018-05-07] MEDS: gabapentin 300mg capsule PO SCH ×3 (09:11→20:22)
[2018-05-07] MEDS: pantoprazole 40mg Tablet.DR PO SCH ×2 (09:11→20:22)
[2018-05-07] MEDS: folic acid 1mg tablet PO SCH (09:11)
[2018-05-07] MEDS: multivitamins, therapeutics tablet PO SCH (09:11)
[2018-05-07] MEDS: carvedilol 6.25mg tablet PO SCH ×2 (09:12→20:21)
[2018-05-07 11:00] VITALS: BP 114/78
[2018-05-07 15:00] VITALS: BP 159/100
[2018-05-07 15:46] LABS: HEMATOCRIT 23.7 % (42.0-52.0); HEMOGLOBIN 7.7 g/dl (14.0-17.9); MEAN CORPUSCULAR HEMOGLOBIN 29.2 PG (27.0-31.0); MEAN CORPUSCULAR HGB CONC 32.4 g/dL (33.0-36.5); MEAN CORPUSCULAR VOLUME 90.2 FL (78-98); MEAN PLATELET VOLUME 8.8 FL (7.4-10.4); PLATELET COUNT 160 X10'3 (140-440); RED BLOOD COUNT 2.62 X10'6 (4.70-6.10); RED CELL DISTRIBUTION WIDTH 16.9 % (11.5-14.5)
[2018-05-07 19:00] VITALS: BP 139/89
[2018-05-07 23:00] VITALS: BP 116/77
[2018-05-08] MEDS: levalbuterol 0.63mg/3ml nebule IH SCH ×3 (02:15→14:00)
[2018-05-08 03:00] VITALS: BP 145/101
--- NOTE | 2018-05-08 05:48 | NUR ---
Orientee documentation: I have reviewed and agree with all interventions, assessments performed and documented by ANNA MARIE Orozco.
[2018-05-08 06:36] LABS: BASOPHILS % (AUTO) 0.5 % (0-1); EOSINOPHILS % (AUTO) 0.4 % (0-6); HEMATOCRIT 22.1 % (42.0-52.0); HEMOGLOBIN 7.1 g/dl (14.0-17.9); LYMPHOCYTES # (AUTO) 1.5 X10'3 (1.1-4.8); MEAN CORPUSCULAR HGB CONC 32.1 g/dL (33.0-36.5); MEAN CORPUSCULAR VOLUME 90.3 FL (78-98); MEAN PLATELET VOLUME 9.2 FL (7.4-10.4); MONOCYTES # (AUTO) 0.8 X10'3 (0-0.9); MONOCYTES % (AUTO) 8.9 % (2-12); NEUTROPHILS # (AUTO) 6.9 X10'3 (1.8-7.7); NEUTROPHILS % (AUTO) 74.2 % (42-75); PLATELET COUNT 160 X10'3 (140-440); RED BLOOD COUNT 2.44 X10'6 (4.70-6.10); RED CELL DISTRIBUTION WIDTH 16.8 % (11.5-14.5); WHITE BLOOD COUNT 9.2 X10'3 (4.5-11.0)
--- NOTE | 2018-05-08 06:45 | NUR ---
Patient in room PCU 3024. I have received report from Juan THRASHER and had the opportunity to ask questions and assume patient care.
[2018-05-08 06:58] LABS: ALANINE AMINOTRANSFERASE 27 U/L (12-78); ALBUMIN 2.6 G/DL (3.4-5.0); ALBUMIN/GLOBULIN RATIO 0.9 (1.1-1.5); ALKALINE PHOSPHATASE 94 IU/L (46-116); AMYLASE 205 U/L (25-115); ANION GAP 5 (8-16); ASPARTATE AMINO TRANSFERASE 18 U/L (10-37); BILIRUBIN,TOTAL 0.3 MG/DL (0.1-1.0); BLOOD UREA NITROGEN 29 MG/DL (7-18); BUN/CREATININE RATIO 15.3 (5.4-32.0); CHLORIDE 104 MMOL/L (99-107); GLUCOSE 88 MG/DL (70-104); LIPASE 118 U/L (73-393); MAGNESIUM 1.7 MG/DL (1.5-2.4); PHOSPHORUS 2.8 MG/DL (2.3-4.5); POTASSIUM 4.2 MMOL/L (3.5-5.1); SODIUM 141 MMOL/L (135-145); TOTAL CARBON DIOXIDE 31.7 MMOL/L (24-32); TOTAL PROTEIN 5.5 G/DL (6.4-8.2); eGFR 36 ML/MIN
[2018-05-08 08:10] VITALS: BP 92/61
[2018-05-08] MEDS: folic acid 1mg tablet PO SCH (08:28)
[2018-05-08] MEDS: multivitamins, therapeutics tablet PO SCH (08:29)
[2018-05-08] MEDS: carvedilol 6.25mg tablet PO SCH (08:29)
[2018-05-08] MEDS: predniSONE 20 mg tablet PO SCH (08:29)
[2018-05-08] MEDS: thiamine 100mg tablet PO SCH (08:29)
[2018-05-08] MEDS: gabapentin 300mg capsule PO SCH ×2 (08:29→12:59)
[2018-05-08] MEDS: pantoprazole 40mg Tablet.DR PO SCH (08:29)
[2018-05-08] MEDS: cefpodoxime proxetil 100mg tablet PO SCH (08:29)
[2018-05-08 11:50] VITALS: BP 109/73
[2018-05-08] MEDS ORDERED: thiamine tablet PO (12:49)
[2018-05-08] MEDS ORDERED: PRED10TA23 PO (12:49)
[2018-05-08] MEDS ORDERED: PANT40TA4 PO (12:49)
[2018-05-08] MEDS ORDERED: MULT-1179 PO (12:49)
[2018-05-08] MEDS ORDERED: FOLI1TAB16 PO (12:49)
[2018-05-08] MEDS ORDERED: Bisacodyl Supp RC (12:49)
[2018-05-08] MEDS ORDERED: DOCU-28 PO (12:51)
--- NOTE | 2018-05-08 18:07 | NUR ---
PT DC'D AT 1700 IN STABLE CONDITION WITH BELONGINGS, RX AND DC PAPER WORK. RX FAXED TO [facility]. COPY OF RX IN CHART.
[2018-05-08] MEDS ORDERED: AMIO200T40 PO ×2 (19:57→20:00)
== END 2018-05-08 17:01 | disposition home health service (06) | DRG 920 ==
LOC: ER 10:47 → ED HOLD 12:05 → EDBEDREQ 15:34 → ICU 2S 16:14 → PCU 3S 05-05 15:56
PROVIDERS: ADMIT Internal Medicine Critical Care Medicine; ATTEND Family Medicine
PROC: 0W3P8ZZ Control Bleeding in Gastrointestinal Tract, Via Natural or Artificial Opening Endoscopic (ICD-10-PCS; principal; 2018-05-04)
PROC: 30233N1 Transfusion of Nonautologous Red Blood Cells into Peripheral Vein, Percutaneous Approach (ICD-10-PCS; 2018-05-04)
PROC: 30233K1 Transfusion of Nonautologous Frozen Plasma into Peripheral Vein, Percutaneous Approach (ICD-10-PCS; 2018-05-04)
PROC: 05HY33Z Insertion of Infusion Device into Upper Vein, Percutaneous Approach (ICD-10-PCS; 2018-05-04)
PROC: 30233N1 Transfusion of Nonautologous Red Blood Cells into Peripheral Vein, Percutaneous Approach (ICD-10-PCS; 2018-05-06)
DX: K91.840 Postprocedural hemorrhage of a digestive system organ or structure following a digestive system procedure (principal); Z68.41 Body mass index [BMI] 40.0-44.9, adult; K63.3 Ulcer of intestine; E66.01 Morbid (severe) obesity due to excess calories; D64.9 Anemia, unspecified; F17.210 Nicotine dependence, cigarettes, uncomplicated; I25.10 Atherosclerotic heart disease of native coronary artery without angina pectoris; I48.2 Chronic atrial fibrillation; I50.9 Heart failure, unspecified; J44.9 Chronic obstructive pulmonary disease, unspecified; Z60.2 Problems related to living alone; K57.30 Diverticulosis of large intestine without perforation or abscess without bleeding; K59.00 Constipation, unspecified; N18.3 Chronic kidney disease, stage 3 (moderate); Y83.8 Other surgical procedures as the cause of abnormal reaction of the patient, or of later complication, without mention of misadventure at the time of the procedure; Z95.1 Presence of aortocoronary bypass graft; Z99.81 Dependence on supplemental oxygen; Z88.8 Allergy status to other drugs, medicaments and biological substances; Z79.82 Long term (current) use of aspirin; Z79.899 Other long term (current) drug therapy; Z79.01 Long term (current) use of anticoagulants; Y92.89 Other specified places as the place of occurrence of the external cause
CPT/HCPCS: 36415; 45382; 71045; 80053; 81001; 82150; 83605; 83690; 83735; 83880; 84100; 84443; 85025; 85027; 85610; 85730; 86885; 86900; 86901; 86920; 87070; 93005; 94640; 94760; 96361; 96374; 97110; 97116; 97161; 97530; 99152; 99153; 99291; 99292; C9113; G0378; J1940; J2250; J3010; J7030; J7512; J7614; P9016; P9059

== ENCOUNTER 2018-05-14 16:10 | Emergency (ER) | payer MEDICARE, MEDICAID ==
[~2018-05-14] VITALS: Ht 177.8 cm; Wt 138.6 kg
[~2018-05-14 16:10] MED LIST changes: +AMIO200T40 PO; -APIX5TAB3 PO; -ASPI-1265 PO; +Bisacodyl Supp RC; -CEFD300C3 PO; +DOCU-28 PO; +FOLI1TAB16 PO; -FURO-149 PO; +MULT-1179 PO; -OMEP40CA37 PO; +PANT40TA4 PO; +thiamine tablet PO
[2018-05-14 16:39] VITALS: BP 155/94
[2018-05-14 17:58] LABS: ALBUMIN 2.8 G/DL (3.4-5.0); ANION GAP 5 (8-16); BASOPHILS % (AUTO) 0.1 % (0-1); BLOOD UREA NITROGEN 18 MG/DL (7-18); BUN/CREATININE RATIO 10.8 (5.4-32.0); CALCIUM 7.8 MG/DL (8.5-10.1); CHLORIDE 103 MMOL/L (99-107); CREATININE 1.66 MG/DL (0.60-1.10); EOSINOPHILS # (AUTO) 0.1 X10'3 (0-0.9); EOSINOPHILS % (AUTO) 0.6 % (0-6); GLUCOSE 98 MG/DL (70-104); HEMATOCRIT 25.8 % (42.0-52.0); LYMPHOCYTES # (AUTO) 0.7 X10'3 (1.1-4.8); LYMPHOCYTES % (AUTO) 5.2 % (21-51); MEAN CORPUSCULAR HEMOGLOBIN 28.7 PG (27.0-31.0); MEAN CORPUSCULAR HGB CONC 30.9 g/dL (33.0-36.5); MEAN CORPUSCULAR VOLUME 92.8 FL (78-98); MEAN PLATELET VOLUME 8.6 FL (7.4-10.4); MONOCYTES # (AUTO) 0.5 X10'3 (0-0.9); MONOCYTES % (AUTO) 3.7 % (2-12); NEUTROPHILS # (AUTO) 12.8 X10'3 (1.8-7.7); NEUTROPHILS % (AUTO) 90.4 % (42-75); PLATELET COUNT 287 X10'3 (140-440); POTASSIUM 5.1 MMOL/L (3.5-5.1); RED BLOOD COUNT 2.78 X10'6 (4.70-6.10); RED CELL DISTRIBUTION WIDTH 16.9 % (11.5-14.5); SODIUM 145 MMOL/L (135-145); TOTAL CARBON DIOXIDE 36.8 MMOL/L (24-32); WHITE BLOOD COUNT 14.2 X10'3 (4.5-11.0); eGFR 42 ML/MIN
[2018-05-14 18:00] LABS: PARTIAL THROMBOPLASTIN TIME 23 SECONDS (22-32); PROTHROMBIN TIME 9.9 SECONDS (9.0-12.0)
--- NOTE | 2018-05-14 18:51 | NUR ---
CALLED [facility] FOR TRANSPORT AND WAS TOLD THEY DIDNT HAVE A DRUG ROOM OPERATOR AVAILIBLE TO PICK PT UP. CALLED [facility] FOR TRANSPORT AND WAS TOLD DRUG ROOM OPERATOR WOULD BE HERE NICHOL. TIME IS 18:52
--- NOTE | 2018-05-14 18:51 | NUR ---
NO CHARTING COMPLETED PRIOR TO ASSUMING CARE, PT DISCHARGE BEFORE ASSESSMENT OR INTERVENTIONS.
== END 2018-05-14 18:52 | disposition home or self-care (01) ==
LOC: ER 16:11
DX: D64.9 Anemia, unspecified (principal); I25.10 Atherosclerotic heart disease of native coronary artery without angina pectoris; I50.9 Heart failure, unspecified; I48.91 Unspecified atrial fibrillation; Z88.8 Allergy status to other drugs, medicaments and biological substances; Z79.899 Other long term (current) drug therapy
CPT/HCPCS: 36415; 80048; 85025; 85610; 85730; 86885; 86900; 86901; 99283

== ENCOUNTER 2018-05-21 15:49 | Emergency (ER) | payer MEDICARE, MEDICAID ==
[~2018-05-21] VITALS: Ht 177.8 cm; Wt 136.0 kg
[2018-05-21 18:37] VITALS: BP 121/78
--- NOTE | 2018-05-21 19:13 | NUR ---
Not able to pull blood from IV line per EMS. It flushes well. The catheter is not all the way in and tagadermed down with about 1/4 inch of it out. It flushes.
[2018-05-21 19:54] LABS: ALANINE AMINOTRANSFERASE 16 U/L (12-78); ALBUMIN 2.7 G/DL (3.4-5.0); ALBUMIN/GLOBULIN RATIO 0.7 (1.1-1.5); ALKALINE PHOSPHATASE 139 IU/L (46-116); ANION GAP 1 (8-16); ASPARTATE AMINO TRANSFERASE 15 U/L (10-37); BASOPHILS # (AUTO) 0.2 X10'3 (0-0.2); BASOPHILS % (AUTO) 1.5 % (0-1); BILIRUBIN,TOTAL 0.3 MG/DL (0.1-1.0); BLOOD UREA NITROGEN 27 MG/DL (7-18); BUN/CREATININE RATIO 9.8 (5.4-32.0); CALCIUM 7.4 MG/DL (8.5-10.1); CHLORIDE 101 MMOL/L (99-107); CREATININE 2.75 MG/DL (0.60-1.10); EOSINOPHILS # (AUTO) 0.5 X10'3 (0-0.9); EOSINOPHILS % (AUTO) 5.2 % (0-6); GLUCOSE 115 MG/DL (70-104); HEMATOCRIT 23.1 % (42.0-52.0); HEMOGLOBIN 7.1 g/dl (14.0-17.9); LYMPHOCYTES # (AUTO) 1.7 X10'3 (1.1-4.8); LYMPHOCYTES % (AUTO) 16.2 % (21-51); MEAN CORPUSCULAR HEMOGLOBIN 27.6 PG (27.0-31.0); MEAN CORPUSCULAR HGB CONC 30.5 g/dL (33.0-36.5); MEAN CORPUSCULAR VOLUME 90.7 FL (78-98); MEAN PLATELET VOLUME 9.8 FL (7.4-10.4); MONOCYTES # (AUTO) 0.5 X10'3 (0-0.9); MONOCYTES % (AUTO) 5.3 % (2-12); NEUTROPHILS # (AUTO) 7.3 X10'3 (1.8-7.7); NEUTROPHILS % (AUTO) 71.8 % (42-75); PLATELET COUNT 323 X10'3 (140-440); POTASSIUM 4.6 MMOL/L (3.5-5.1); RED BLOOD COUNT 2.55 X10'6 (4.70-6.10); RED CELL DISTRIBUTION WIDTH 16.4 % (11.5-14.5); SODIUM 146 MMOL/L (135-145); TOTAL PROTEIN 6.4 G/DL (6.4-8.2); WHITE BLOOD COUNT 10.2 X10'3 (4.5-11.0); eGFR 23 ML/MIN
[2018-05-21 19:57] LABS: TOTAL CARBON DIOXIDE 43.9 MMOL/L (24-32)
[2018-05-21 20:08] LABS: LARGE PLATELETS FEW; PLATELET ESTIMATE NORMAL
[2018-05-21 20:32] LABS: INR 1.1 INR; PROTHROMBIN TIME 10.7 SECONDS (9.0-12.0)
[2018-05-21] MEDS ORDERED: sulfamethoxazole/trimethoprim DS (800/160mg) tablet PO ONE (20:50)
[2018-05-21] MEDS ORDERED: SULF1TAB48 PO (21:04)
--- NOTE | 2018-05-21 21:53 | NUR ---
Kamilah here and delivered home oxygen. Transportation being called now.
== END 2018-05-21 22:18 | disposition home or self-care (01) ==
LOC: ER 15:50
DX: R60.0 Localized edema (principal); L03.115 Cellulitis of right lower limb; I48.91 Unspecified atrial fibrillation; I25.10 Atherosclerotic heart disease of native coronary artery without angina pectoris; I50.9 Heart failure, unspecified; Z88.8 Allergy status to other drugs, medicaments and biological substances; Z79.899 Other long term (current) drug therapy
CPT/HCPCS: 36415; 80053; 83880; 84484; 85025; 85610; 93005; 93971; 99284

== ENCOUNTER 2018-06-01 00:37 | Inpatient (IN) | payer MEDICARE, MEDICAID | END 2018-06-03 15:45 | LOC: ER 00:37 → ED HOLD 02:51 → PCU 3S 07:01 | DX: L03.115 Cellulitis of right lower limb (principal); J96.00 Acute respiratory failure, unspecified whether with hypoxia or hypercapnia; E87.2 Acidosis; J44.1 Chronic obstructive pulmonary disease with (acute) exacerbation; I50.30 Unspecified diastolic (congestive) heart failure; N17.9 Acute kidney failure, unspecified; I48.91 Unspecified atrial fibrillation ==

== ENCOUNTER 2018-11-28 17:17 | Inpatient (IN) | payer MEDICARE, MEDICAID ==
[~2018-11-28] VITALS: Ht 177.8 cm; Wt 136.4 kg
[~2018-11-28 17:17] MED LIST changes: -AMIO200T40 PO; +ATOR10TA87 PO; +FURO-150 PO; -MULT-1179 PO; +MULT-933 PO; -PRED10TA23 PO
[2018-11-28] MEDS ORDERED: normal saline 1000ML IV soln IV ONE (17:40)
[2018-11-28] MEDS ORDERED: diltiazem 5mg/ml 5ml inj. IV ONE (17:45)
--- NOTE | 2018-11-28 17:48 | NUR ---
IDEAL BODY WEIGHT FOR PT PER PHARMACY IS: 151LBS OR 68.63 KG
[2018-11-28 18:10] LABS: BASOPHILS # (AUTO) 0.1 X10'3 (0-0.2); EOSINOPHILS # (AUTO) 0.2 X10'3 (0-0.9); EOSINOPHILS % (AUTO) 2.9 % (0-6); HEMATOCRIT 30.1 % (42.0-52.0); HEMOGLOBIN 9.4 g/dl (14.0-17.9); LYMPHOCYTES % (AUTO) 18.4 % (21-51); MEAN CORPUSCULAR HEMOGLOBIN 28.5 PG (27.0-31.0); MEAN CORPUSCULAR HGB CONC 31.1 g/dL (33.0-36.5); MEAN CORPUSCULAR VOLUME 91.7 FL (78-98); MEAN PLATELET VOLUME 8.4 FL (7.4-10.4); MONOCYTES # (AUTO) 0.4 X10'3 (0-0.9); MONOCYTES % (AUTO) 7.5 % (2-12); NEUTROPHILS # (AUTO) 3.7 X10'3 (1.8-7.7); NEUTROPHILS % (AUTO) 70.2 % (42-75); PLATELET COUNT 229 X10'3 (140-440); RED BLOOD COUNT 3.28 X10'6 (4.70-6.10); RED CELL DISTRIBUTION WIDTH 20.7 % (11.5-14.5); WHITE BLOOD COUNT 5.3 X10'3 (4.5-11.0)
[2018-11-28 18:23] LABS: ALANINE AMINOTRANSFERASE 17 U/L (12-78); ALBUMIN 2.8 G/DL (3.4-5.0); ALBUMIN/GLOBULIN RATIO 0.6 (1.1-1.5); ALKALINE PHOSPHATASE 170 IU/L (46-116); ANION GAP 5 (8-16); ASPARTATE AMINO TRANSFERASE 17 U/L (10-37); BILIRUBIN,TOTAL 0.3 MG/DL (0.1-1.0); BLOOD UREA NITROGEN 28 MG/DL (7-18); BUN/CREATININE RATIO 12.8 (5.4-32.0); CALCIUM 7.9 MG/DL (8.5-10.1); CHLORIDE 105 MMOL/L (99-107); CREATININE 2.19 MG/DL (0.60-1.10); GLUCOSE 82 MG/DL (70-104); POTASSIUM 5.1 MMOL/L (3.5-5.1); SODIUM 144 MMOL/L (135-145); TOTAL CARBON DIOXIDE 34.2 MMOL/L (24-32); TOTAL PROTEIN 7.3 G/DL (6.4-8.2); eGFR 30 ML/MIN
[2018-11-28] MEDS ORDERED: CefTRIAXone 2gm/D5W 50ml 50 ML IV ONE (18:40)
[2018-11-28] MEDS ORDERED: furosemide 10 MG/1 ML 10ml inj IV ONE (18:40)
[2018-11-28] MEDS ORDERED: METO50TA16 PO (18:47)
[2018-11-28] MEDS ORDERED: FERR325T7 PO (18:47)
[2018-11-28] MEDS ORDERED: AMIO200T61 PO (18:47)
[2018-11-28] MEDS ORDERED: APIX5TAB3 PO (18:47)
[2018-11-28] MEDS ORDERED: CARV25TA2 PO (18:47)
[2018-11-28] MEDS ORDERED: mag hydrox/Alum hydrox/simeth 30ml oral suspension PO PRN (19:45)
[2018-11-28] MEDS ORDERED: acetaminophen 325mg tablet PO PRN (19:45)
[2018-11-28] MEDS ORDERED: magnesium hydroxide 30ml (MOM) UD suspension PO PRN (19:45)
[2018-11-28] MEDS ORDERED: ondansetron/PF 4mg/2ml inj IV PRN (19:45)
[2018-11-28] MEDS: metoprolol tartrate 50mg tablet PO SCH (20:15)
[2018-11-28] MEDS: apixaban 5mg tablet PO SCH (20:15)
[2018-11-28] MEDS: carVEDilol 12.5mg tablet PO SCH (20:15)
[2018-11-28 20:37] LABS: CLARITY,URINE CLEAR (Clear); COLOR,URINE YELLOW (Yellow); GLUCOSE, URINE NEGATIVE (Neg); KETONES,URINE NEGATIVE (Neg); LEUKOCYTE ESTERASE ,URINE NEGATIVE (Neg); NITRITES, URINE NEGATIVE (Neg); OCCULT BLOOD,URINE NEGATIVE (Neg); PH,URINE 5.5 (4.8-8.0); PROTEIN,URINE NEGATIVE (Neg); UROBILINOGEN,URINE 0.2 E.U/dL (0.2-1.0)
[2018-11-28 20:43] LABS: UA COLLECTION TYPE CLN CATCH MIDSTREAM
[2018-11-28] MEDS: gabapentin 300mg capsule PO SCH (21:59)
[2018-11-28 23:20] VITALS: BP 124/87
--- NOTE | 2018-11-28 23:30 | NUR ---
Patient arrived on unit around 2330 was placed on tele, 2RN skin check complete, vital signs taken. Patient is resting.
[2018-11-29] VITALS (7 sets, daily range): BP systolic 93–136; BP diastolic 62–98
--- NOTE | 2018-11-29 00:18 | NUR ---
PT HOME RX TAKEN TO PHARMACY.
[2018-11-29] MEDS: carVEDilol 12.5mg tablet PO SCH ×2 (05:36→21:03)
--- NOTE | 2018-11-29 05:39 | NUR ---
Give Carvedilol early per Dr. Lopez for HR
[2018-11-29 06:13] LABS: BASOPHILS % (AUTO) 0.8 % (0-1); EOSINOPHILS # (AUTO) 0.2 X10'3 (0-0.9); EOSINOPHILS % (AUTO) 3.2 % (0-6); HEMOGLOBIN 9.9 g/dl (14.0-17.9); LYMPHOCYTES # (AUTO) 1.1 X10'3 (1.1-4.8); LYMPHOCYTES % (AUTO) 17.1 % (21-51); MEAN CORPUSCULAR HEMOGLOBIN 28.4 PG (27.0-31.0); MEAN CORPUSCULAR HGB CONC 30.2 g/dL (33.0-36.5); MONOCYTES # (AUTO) 0.6 X10'3 (0-0.9); MONOCYTES % (AUTO) 9.9 % (2-12); NEUTROPHILS # (AUTO) 4.4 X10'3 (1.8-7.7); PLATELET COUNT 233 X10'3 (140-440); RED BLOOD COUNT 3.51 X10'6 (4.70-6.10); WHITE BLOOD COUNT 6.4 X10'3 (4.5-11.0)
[2018-11-29 06:25] LABS: ALANINE AMINOTRANSFERASE 17 U/L (12-78); ALBUMIN 2.9 G/DL (3.4-5.0); ALBUMIN/GLOBULIN RATIO 0.6 (1.1-1.5); ALKALINE PHOSPHATASE 176 IU/L (46-116); ANION GAP 3 (8-16); ASPARTATE AMINO TRANSFERASE 22 U/L (10-37); BILIRUBIN,TOTAL 0.3 MG/DL (0.1-1.0); BLOOD UREA NITROGEN 28 MG/DL (7-18); BUN/CREATININE RATIO 13.5 (5.4-32.0); CALCIUM 8.2 MG/DL (8.5-10.1); CHLORIDE 105 MMOL/L (99-107); CREATININE 2.08 MG/DL (0.60-1.10); GLUCOSE 83 MG/DL (70-104); SODIUM 145 MMOL/L (135-145); TOTAL CARBON DIOXIDE 36.9 MMOL/L (24-32); TOTAL PROTEIN 7.7 G/DL (6.4-8.2); eGFR 32 ML/MIN
--- NOTE | 2018-11-29 06:45 | NUR ---
Problems reprioritized. Patient report given, questions answered & plan of care reviewed with ANNA MARIE Arora.
--- NOTE | 2018-11-29 06:45 | NUR ---
Patient in room PCU 3018. I have received report from ANNA MARIE Raymond and had the opportunity to ask questions and assume patient care.
[2018-11-29 07:27] LABS: ANISOCYTOSIS 3+; MICROCYTOSIS 1+; PLATELET ESTIMATE NORMAL
[2018-11-29 07:28] LABS: HYPOCHROMASIA 1+
[2018-11-29] MEDS: atorvastatin 10mg tablet PO SCH (07:35)
[2018-11-29] MEDS: gabapentin 300mg capsule PO SCH ×3 (07:35→21:03)
[2018-11-29] MEDS: apixaban 5mg tablet PO SCH ×2 (07:36→21:04)
[2018-11-29] MEDS: metoprolol tartrate 50mg tablet PO SCH ×2 (07:38→21:03)
[2018-11-29] MEDS ORDERED: furosemide 40mg/4ml inj IV ONE (12:50)
[2018-11-29] MEDS ORDERED: MESSAGE TO PHARMACY PO ONE (13:30)
[2018-11-29] MEDS ORDERED: dextrose 50%-water 50ml dispensing syringe IV PRN ×2 (13:30)
[2018-11-29] MEDS ORDERED: insulin Lispro (HumaLOG) vial - multi-dose SQ SCH (13:30)
[2018-11-29] MEDS ORDERED: dextrose ORAL solution 15 GM/59 ML bottle PO PRN ×2 (13:30)
[2018-11-29] MEDS ORDERED: glucagon, human recombinant 1mg kit SUBCUT PRN (13:30)
[2018-11-29] MEDS: methylPREDNISolone sod succ 125mg/2ml vial IV SCH ×2 (13:46→21:01)
[2018-11-29] MEDS: CefTRIAXone 2gm/D5W 50ml 50 ML IV SCH (13:49)
[2018-11-29] MEDS: levalbuterol 0.63mg/3ml nebule IH SCH ×2 (15:07→20:32)
--- NOTE | 2018-11-29 15:56 | NUR ---
Orientee documentation and med administration: I have reviewed and agree with all interventions, assessments performed and documented by Zeinab THRASHER.
--- NOTE | 2018-11-29 16:51 | NUR ---
Spoke to Dr. Heredia re: med req on patient, he asked if this nurse could inquire about why patient's is on 2 beta blockers. Called pharmacy and noted that Dr. Gan placed patient on both meds on 11/08. Paged hospitalist, "[facility]- Room 3018 Mikael Wilson, Micky-called pharmacy, noted external pharm revealed that Dr. Gan placed pt on both carvedilol and metoprolol on 11/08 for 30 days."
--- NOTE | 2018-11-29 18:30 | NUR ---
Patient in room PCU 3018. I have received report from ANNA MARIE CORLEY AND ANNA MARIE DEXTER and had the opportunity to ask questions and assume patient care.
--- NOTE | 2018-11-29 18:51 | NUR ---
Problems reprioritized. Patient report given, questions answered & plan of care reviewed with ANNA MARIE Chadwick.
[2018-11-29] MEDS: furosemide 40mg/4ml inj IV SCH (20:57)
[2018-11-29] MEDS ORDERED: insulin glargine (Lantus) pen - multi-dose SQ SCH (21:00)
[2018-11-30] VITALS (7 sets, daily range): BP systolic 106–135; BP diastolic 67–88
[2018-11-30] MEDS: methylPREDNISolone sod succ 125mg/2ml vial IV SCH ×3 (02:24→19:33)
[2018-11-30] MEDS: levalbuterol 0.63mg/3ml nebule IH SCH ×4 (02:25→20:15)
--- NOTE | 2018-11-30 06:23 | NUR ---
Problems reprioritized. Patient report given, questions answered & plan of care reviewed with ANNA MARIE CASTORENA.
[2018-11-30 06:25] LABS: BASOPHILS % (AUTO) 0.1 % (0-1); EOSINOPHILS % (AUTO) 0 % (0-6); HEMATOCRIT 32.6 % (42.0-52.0); HEMOGLOBIN 10.2 g/dl (14.0-17.9); LYMPHOCYTES # (AUTO) 0.2 X10'3 (1.1-4.8); LYMPHOCYTES % (AUTO) 3.4 % (21-51); MEAN CORPUSCULAR HEMOGLOBIN 28.6 PG (27.0-31.0); MEAN CORPUSCULAR HGB CONC 31.3 g/dL (33.0-36.5); MEAN CORPUSCULAR VOLUME 91.3 FL (78-98); MEAN PLATELET VOLUME 9.4 FL (7.4-10.4); MONOCYTES % (AUTO) 0.4 % (2-12); NEUTROPHILS # (AUTO) 5.6 X10'3 (1.8-7.7); NEUTROPHILS % (AUTO) 96.1 % (42-75); PLATELET COUNT 239 X10'3 (140-440); RED BLOOD COUNT 3.57 X10'6 (4.70-6.10); RED CELL DISTRIBUTION WIDTH 20.4 % (11.5-14.5); WHITE BLOOD COUNT 5.8 X10'3 (4.5-11.0)
--- NOTE | 2018-11-30 06:30 | NUR ---
Patient in room PCU 3018. I have received report from ANNA MARIE Chadwick and had the opportunity to ask questions and assume patient care.
[2018-11-30 06:47] LABS: ALANINE AMINOTRANSFERASE 17 U/L (12-78); ALBUMIN/GLOBULIN RATIO 0.6 (1.1-1.5); ALKALINE PHOSPHATASE 172 IU/L (46-116); ANION GAP 6 (8-16); ASPARTATE AMINO TRANSFERASE 17 U/L (10-37); BILIRUBIN,TOTAL 0.3 MG/DL (0.1-1.0); BLOOD UREA NITROGEN 29 MG/DL (7-18); BUN/CREATININE RATIO 15.2 (5.4-32.0); CALCIUM 7.7 MG/DL (8.5-10.1); CHLORIDE 101 MMOL/L (99-107); CREATININE 1.91 MG/DL (0.60-1.10); GLUCOSE 127 MG/DL (70-104); POTASSIUM 4.6 MMOL/L (3.5-5.1); SODIUM 144 MMOL/L (135-145); TOTAL CARBON DIOXIDE 37.2 MMOL/L (24-32); TOTAL PROTEIN 7.7 G/DL (6.4-8.2); eGFR 36 ML/MIN
[2018-11-30 07:06] LABS: ANISOCYTOSIS 3+; PLATELET ESTIMATE NORMAL
[2018-11-30 07:09] LABS: POIKILOCYTOSIS FEW; POLYCHROMASIA FEW; STOMATOCYTES 1+
[2018-11-30 07:10] LABS: SPHEROCYTES FEW
[2018-11-30 07:11] LABS: HYPOCHROMASIA 1+
[2018-11-30] MEDS: CefTRIAXone 2gm/D5W 50ml 50 ML IV SCH (07:25)
[2018-11-30] MEDS: gabapentin 300mg capsule PO SCH ×2 (07:26→19:32)
[2018-11-30] MEDS: ferrous sulfate 325mg tablet PO SCH (07:26)
[2018-11-30] MEDS: amiodarone 200mg tablet PO SCH (07:26)
[2018-11-30] MEDS: furosemide 40mg/4ml inj IV SCH ×2 (07:26→19:33)
[2018-11-30] MEDS: metoprolol tartrate 50mg tablet PO SCH ×2 (07:27→19:34)
[2018-11-30] MEDS: carVEDilol 12.5mg tablet PO SCH ×2 (07:27→19:33)
[2018-11-30] MEDS: atorvastatin 10mg tablet PO SCH (07:27)
[2018-11-30] MEDS: apixaban 5mg tablet PO SCH ×2 (07:27→19:33)
--- NOTE | 2018-11-30 18:20 | NUR ---
Problems reprioritized. Patient report given, questions answered & plan of care reviewed with ANNA MARIE Gardner .
--- NOTE | 2018-11-30 18:20 | NUR ---
bedside report provided. Patient in room PCU 3018. I have received report from Juan THRASHER and had the opportunity to ask questions and assume patient care.
[2018-11-30] MEDS: lactobacillus rhamnosus 10,000 MMU CELLS/CAPSULE PO SCH (19:32)
[2018-12-01] MEDS: levalbuterol 0.63mg/3ml nebule IH SCH ×2 (02:55→07:54)
[2018-12-01 03:07] VITALS: BP 116/49
[2018-12-01 05:46] LABS: BASOPHILS % (AUTO) 0.1 % (0-1); EOSINOPHILS % (AUTO) 0 % (0-6); HEMATOCRIT 31.6 % (42.0-52.0); LYMPHOCYTES # (AUTO) 0.3 X10'3 (1.1-4.8); LYMPHOCYTES % (AUTO) 2.7 % (21-51); MEAN CORPUSCULAR HEMOGLOBIN 28.5 PG (27.0-31.0); MEAN CORPUSCULAR HGB CONC 31.5 g/dL (33.0-36.5); MEAN CORPUSCULAR VOLUME 90.4 FL (78-98); MEAN PLATELET VOLUME 9.5 FL (7.4-10.4); MONOCYTES # (AUTO) 0.1 X10'3 (0-0.9); MONOCYTES % (AUTO) 0.9 % (2-12); NEUTROPHILS # (AUTO) 10.1 X10'3 (1.8-7.7); NEUTROPHILS % (AUTO) 96.3 % (42-75); PLATELET COUNT 243 X10'3 (140-440); RED CELL DISTRIBUTION WIDTH 19.8 % (11.5-14.5); WHITE BLOOD COUNT 10.5 X10'3 (4.5-11.0)
[2018-12-01 06:00] VITALS: BP 124/82
--- NOTE | 2018-12-01 06:02 | NUR ---
Problems reprioritized. Patient report given,Elisha THRASHER at bedside. questions answered & plan of care reviewed with .
[2018-12-01 06:04] LABS: ALANINE AMINOTRANSFERASE 17 U/L (12-78); ALBUMIN 2.9 G/DL (3.4-5.0); ALBUMIN/GLOBULIN RATIO 0.6 (1.1-1.5); ALKALINE PHOSPHATASE 152 IU/L (46-116); ANION GAP 5 (8-16); ASPARTATE AMINO TRANSFERASE 16 U/L (10-37); BILIRUBIN,TOTAL 0.3 MG/DL (0.1-1.0); BLOOD UREA NITROGEN 37 MG/DL (7-18); BUN/CREATININE RATIO 20.9 (5.4-32.0); CALCIUM 8.7 MG/DL (8.5-10.1); CHLORIDE 97 MMOL/L (99-107); CREATININE 1.77 MG/DL (0.60-1.10); GLUCOSE 122 MG/DL (70-104); POTASSIUM 3.8 MMOL/L (3.5-5.1); SODIUM 141 MMOL/L (135-145); TOTAL CARBON DIOXIDE 39.4 MMOL/L (24-32); TOTAL PROTEIN 7.4 G/DL (6.4-8.2); eGFR 39 ML/MIN
--- NOTE | 2018-12-01 06:28 | NUR ---
Patient in room PCU 3018. I have received report from ANNA MARIE Byrne and had the opportunity to ask questions and assume patient care. Patient currently resting in bed, bed locked and low, call light in reach, no acute distress, will continue to monitor.
[2018-12-01 07:17] LABS: ANISOCYTOSIS 2+; PLATELET ESTIMATE NORMAL
[2018-12-01] MEDS: CefTRIAXone 2gm/D5W 50ml 50 ML IV SCH (08:35)
[2018-12-01] MEDS: methylPREDNISolone sod succ 125mg/2ml vial IV SCH (08:40)
[2018-12-01] MEDS: furosemide 40mg/4ml inj IV SCH (08:40)
[2018-12-01] MEDS: metoprolol tartrate 50mg tablet PO SCH (08:45)
[2018-12-01] MEDS: gabapentin 300mg capsule PO SCH (08:45)
[2018-12-01] MEDS: atorvastatin 10mg tablet PO SCH (08:45)
[2018-12-01] MEDS: apixaban 5mg tablet PO SCH (08:45)
[2018-12-01] MEDS: carVEDilol 12.5mg tablet PO SCH (08:45)
[2018-12-01] MEDS: ferrous sulfate 325mg tablet PO SCH (08:45)
[2018-12-01] MEDS: amiodarone 200mg tablet PO SCH (08:45)
[2018-12-01] MEDS: lactobacillus rhamnosus 10,000 MMU CELLS/CAPSULE PO SCH (08:46)
[2018-12-01 11:52] VITALS: BP 129/87
--- NOTE | 2018-12-01 12:40 | NUR ---
PAGER ID: [phone] MESSAGE: ANNA MARIE Tello, ext [phone], [phone], CHEN Wilson, patient had QRS .11, is on amiodarone
--- NOTE | 2018-12-01 13:56 | NUR ---
Received report for patient transfer to [facility]. report called, IV removed catheter intact and hemostasis acheived, telemetry removed, patient belongings gathered, medications retrieved from pharmacy and patient's cigarettes sent with patient belongings. Patient transported by [facility]. Stable at time of shift change
== END 2018-12-01 13:35 | DRG 291 ==
LOC: ER 17:17 → ED HOLD 20:31 → PCU 3S 23:29
PROVIDERS: ADMIT Internal Medicine; ATTEND Family Medicine
DX: I13.0 Hypertensive heart and chronic kidney disease with heart failure and stage 1 through stage 4 chronic kidney disease, or unspecified chronic kidney disease (principal); I50.33 Acute on chronic diastolic (congestive) heart failure; N17.9 Acute kidney failure, unspecified; L03.115 Cellulitis of right lower limb; Z68.41 Body mass index [BMI] 40.0-44.9, adult; J44.1 Chronic obstructive pulmonary disease with (acute) exacerbation; J96.10 Chronic respiratory failure, unspecified whether with hypoxia or hypercapnia; L03.116 Cellulitis of left lower limb; I27.81 Cor pulmonale (chronic); I48.91 Unspecified atrial fibrillation; E66.01 Morbid (severe) obesity due to excess calories; N18.9 Chronic kidney disease, unspecified; E11.22 Type 2 diabetes mellitus with diabetic chronic kidney disease; E11.42 Type 2 diabetes mellitus with diabetic polyneuropathy; F17.210 Nicotine dependence, cigarettes, uncomplicated; I25.10 Atherosclerotic heart disease of native coronary artery without angina pectoris; G89.29 Other chronic pain; M54.9 Dorsalgia, unspecified; Z88.8 Allergy status to other drugs, medicaments and biological substances; Z95.1 Presence of aortocoronary bypass graft; Z83.3 Family history of diabetes mellitus
CPT/HCPCS: 36415; 71045; 80053; 81003; 82948; 83605; 83735; 83880; 84145; 84484; 85025; 85610; 87040; 87081; 93005; 94640; 94760; 96361; 96365; 96375; 99285; G0378; J0696; J1940; J2930; J3490; J7614

== ENCOUNTER 2019-02-13 04:04 | Emergency (ER) | payer MEDICARE, MEDICAID ==
[~2019-02-13] VITALS: Ht 177.8 cm; Wt 124.1 kg
[~2019-02-13 04:04] MED LIST changes: +AMIO200T61 PO; +APIX5TAB3 PO; +CARV25TA2 PO; -CARV6.253 PO; +FERR325T7 PO; +METO50TA16 PO
[2019-02-13 04:46] LABS: BASOPHILS % (AUTO) 0.3 % (0-1); EOSINOPHILS # (AUTO) 0.3 X10'3 (0-0.9); HEMATOCRIT 31.2 % (42.0-52.0); LYMPHOCYTES # (AUTO) 0.9 X10'3 (1.1-4.8); LYMPHOCYTES % (AUTO) 8.5 % (21-51); MEAN CORPUSCULAR HEMOGLOBIN 28.9 PG (27.0-31.0); MEAN CORPUSCULAR VOLUME 90.6 FL (78-98); MONOCYTES % (AUTO) 9.6 % (2-12); NEUTROPHILS # (AUTO) 7.9 X10'3 (1.8-7.7); NEUTROPHILS % (AUTO) 78.6 % (42-75); PLATELET COUNT 273 X10'3 (140-440); RED BLOOD COUNT 3.44 X10'6 (4.70-6.10); RED CELL DISTRIBUTION WIDTH 16.9 % (11.5-14.5); WHITE BLOOD COUNT 10.1 X10'3 (4.5-11.0)
[2019-02-13 04:47] LABS: ALANINE AMINOTRANSFERASE 26 U/L (12-78); ALBUMIN 3.1 G/DL (3.4-5.0); ALBUMIN/GLOBULIN RATIO 0.7 (1.1-1.5); ALKALINE PHOSPHATASE 174 IU/L (46-116); ANION GAP 6 (8-16); ASPARTATE AMINO TRANSFERASE 24 U/L (10-37); BILIRUBIN,TOTAL 0.4 MG/DL (0.1-1.0); BLOOD UREA NITROGEN 48 MG/DL (7-18); BUN/CREATININE RATIO 16.8 (5.4-32.0); CALCIUM 7.3 MG/DL (8.5-10.1); CHLORIDE 101 MMOL/L (99-107); CREATININE 2.86 MG/DL (0.60-1.10); GLUCOSE 109 MG/DL (70-104); POTASSIUM 4.4 MMOL/L (3.5-5.1); SODIUM 140 MMOL/L (135-145); TOTAL CARBON DIOXIDE 33.3 MMOL/L (24-32); TOTAL PROTEIN 7.4 G/DL (6.4-8.2); eGFR 22 ML/MIN
[2019-02-13 04:51] LABS: CREATINE KINASE 70 U/L (39-308); MAGNESIUM 1.9 MG/DL (1.5-2.4)
--- NOTE | 2019-02-13 05:23 | NUR ---
Spoke to [facility] and relayed that pt was being discharged. Facility agreed to arrange transportation from PSYCH[facility]ATRIC to SNF.
[2019-02-13 06:12] VITALS: BP 108/72
== END 2019-02-13 06:14 | disposition home or self-care (01) ==
LOC: ER 04:05
DX: G89.29 Other chronic pain (principal); E86.0 Dehydration; M25.532 Pain in left wrist; E66.9 Obesity, unspecified; I48.91 Unspecified atrial fibrillation; I25.10 Atherosclerotic heart disease of native coronary artery without angina pectoris; I11.0 Hypertensive heart disease with heart failure; I50.9 Heart failure, unspecified; J44.9 Chronic obstructive pulmonary disease, unspecified; F17.200 Nicotine dependence, unspecified, uncomplicated; Z95.1 Presence of aortocoronary bypass graft; Z88.8 Allergy status to other drugs, medicaments and biological substances; Z79.899 Other long term (current) drug therapy
CPT/HCPCS: 36415; 73110; 80053; 82550; 83735; 85025; 99284

== ENCOUNTER 2020-01-07 11:31 | Inpatient (IN) | payer MEDICARE, MEDICAID ==
[~2020-01-07] VITALS: Ht 177.8 cm; Wt 176.7 kg
[~2020-01-07 11:31] MED LIST changes: -PANT40TA4 PO; +PANT40TA54 PO
--- NOTE | 2020-01-07 12:20 | NUR ---
talked with pt's friend Christina on the phone. Christina [phone]. call her with any updates as to whether the pt can have a visitor or any updates on his care.
[2020-01-07 12:57] LABS: BASOPHILS % (AUTO) 0.4 % (0-1); EOSINOPHILS # (AUTO) 0.2 X10'3 (0-0.9); HEMATOCRIT 29.7 % (42.0-52.0); HEMOGLOBIN 9.4 g/dl (14.0-17.9); LYMPHOCYTES # (AUTO) 0.8 X10'3 (1.1-4.8); LYMPHOCYTES % (AUTO) 10.8 % (21-51); MEAN CORPUSCULAR HEMOGLOBIN 29.4 PG (27.0-31.0); MEAN CORPUSCULAR HGB CONC 31.7 g/dL (33.0-36.5); MEAN CORPUSCULAR VOLUME 92.6 FL (78-98); MEAN PLATELET VOLUME 9.2 FL (7.4-10.4); MONOCYTES # (AUTO) 0.8 X10'3 (0-0.9); NEUTROPHILS # (AUTO) 5.5 X10'3 (1.8-7.7); NEUTROPHILS % (AUTO) 74.8 % (42-75); PLATELET COUNT 190 X10'3 (140-440); RED BLOOD COUNT 3.21 X10'6 (4.70-6.10); RED CELL DISTRIBUTION WIDTH 17.2 % (11.5-14.5); WHITE BLOOD COUNT 7.3 X10'3 (4.5-11.0)
[2020-01-07 13:11] LABS: ALANINE AMINOTRANSFERASE 25 U/L (12-78); ALBUMIN 3.3 G/DL (3.4-5.0); ALBUMIN/GLOBULIN RATIO 0.8 (1.1-1.5); ALKALINE PHOSPHATASE 172 IU/L (46-116); ANION GAP 14 (8-16); ASPARTATE AMINO TRANSFERASE 18 U/L (10-37); BILIRUBIN,TOTAL 0.4 MG/DL (0.1-1.0); BLOOD UREA NITROGEN 101 MG/DL (7-18); BUN/CREATININE RATIO 15.7 (5.4-32.0); CHLORIDE 101 MMOL/L (99-107); CREATININE 6.42 MG/DL (0.60-1.10); GLUCOSE 88 MG/DL (70-104); MAGNESIUM 2.4 MG/DL (1.5-2.4); POTASSIUM 4.6 MMOL/L (3.5-5.1); SODIUM 138 MMOL/L (135-145); TOTAL CARBON DIOXIDE 23.4 MMOL/L (24-32); TOTAL PROTEIN 7.6 G/DL (6.4-8.2); eGFR 9 ML/MIN
[2020-01-07 13:12] LABS: CALCIUM 5.6 MG/DL (8.5-10.1)
[2020-01-07 15:27] LABS: CLARITY,URINE CLEAR (Clear); COLOR,URINE YELLOW (Yellow); GLUCOSE, URINE NEGATIVE (Neg); KETONES,URINE NEGATIVE (Neg); LEUKOCYTE ESTERASE ,URINE NEGATIVE (Neg); NITRITES, URINE NEGATIVE (Neg); OCCULT BLOOD,URINE SMALL (Neg); PH,URINE 5.5 (4.8-8.0); PROTEIN,URINE NEGATIVE (Neg); UROBILINOGEN,URINE 0.2 E.U/dL (0.2-1.0)
[2020-01-07 15:30] LABS: UA COLLECTION TYPE NON-SPECIFIED
[2020-01-07 15:31] LABS: BACTERIA,URINE NONE SEEN /HPF (Neg); MUCUS STRANDS FEW /LPF (Neg); SQUAMOUS EPITHELIAL CELL,UR FEW /LPF (FEW); WBC,URINE NONE SEEN /HPF (0-4)
[2020-01-07 15:37] LABS: URINE AMPHETAMINE SCREEN NEGATIVE (Neg); URINE BARBITUATE SCREEN NEGATIVE (Neg); URINE BENZODIAZEPINES SCREEN NEGATIVE (Neg); URINE CANNABINOID SCREEN POSITIVE (Neg); URINE COCAINE SCREEN NEGATIVE (Neg); URINE METHADONE SCREEN NEGATIVE (Neg); URINE OPIATE SCREEN POSITIVE (Neg); URINE PHENCYCLIDINE SCREEN NEGATIVE (Neg)
[2020-01-07] MEDS ORDERED: acetaminophen 325mg tablet PO PRN (17:05)
[2020-01-07] MEDS ORDERED: ondansetron/PF 4mg/2ml inj IV PRN (17:05)
[2020-01-07] MEDS ORDERED: mag hydrox/Alum hydrox/simeth 30ml oral suspension PO PRN (17:05)
[2020-01-07] MEDS ORDERED: magnesium hydroxide 30ml (MOM) UD suspension PO PRN (17:05)
[2020-01-07] MEDS: normal saline 1000ml 1,000 ML IV SCH (17:05)
[2020-01-07 18:40] LABS: PHOSPHORUS 9.2 MG/DL (2.3-4.5)
[2020-01-07] MEDS ORDERED: CARV-50 PO (19:28)
[2020-01-07] MEDS ORDERED: DICL100G30 TOP (19:28)
[2020-01-07] MEDS ORDERED: FURO40TA4 PO (19:28)
[2020-01-07] MEDS ORDERED: CYCL-394 PO (19:28)
[2020-01-07] MEDS ORDERED: BISA10SU60 RC (19:28)
[2020-01-07] MEDS ORDERED: NA P230E (19:28)
[2020-01-07] MEDS ORDERED: LOSA25TA96 PO (19:28)
--- NOTE | 2020-01-07 19:30 | NUR ---
Patient in room MED 309. I have received report from Marlin THRASHER and had the opportunity to ask questions and assume patient care.
[2020-01-07] MEDS ORDERED: HYDR28CR14 TOP (19:35)
[2020-01-07] MEDS ORDERED: MAGN400O6 PO (19:35)
[2020-01-07] MEDS ORDERED: RIVA15TA PO (19:35)
[2020-01-07] MEDS ORDERED: NITR0.4T51 SL (19:35)
[2020-01-07] MEDS ORDERED: LEVA0.6319 NEB (19:35)
[2020-01-07] MEDS ORDERED: HYDR-4353 PO (19:35)
[2020-01-07] MEDS ORDERED: ACET-1008 PO (19:35)
[2020-01-07] MEDS ORDERED: heparin, porcine 5000 units/ml vial SQ SCH (20:00)
[2020-01-07 22:00] VITALS: BP 151/100
[2020-01-07] MEDS: apixaban 2.5mg tablet PO SCH (22:13)
[2020-01-07] MEDS: carVEDilol 12.5mg tablet PO SCH (22:14)
[2020-01-08 02:00] VITALS: BP 94/72
[2020-01-08] MEDS: normal saline 1000ml 1,000 ML IV SCH ×3 (03:30→23:05)
[2020-01-08 03:36] LABS: BASOPHILS % (AUTO) 0.6 % (0-1); EOSINOPHILS # (AUTO) 0.2 X10'3 (0-0.9); EOSINOPHILS % (AUTO) 2.3 % (0-6); HEMATOCRIT 28.7 % (42.0-52.0); HEMOGLOBIN 9.2 g/dl (14.0-17.9); LYMPHOCYTES # (AUTO) 0.8 X10'3 (1.1-4.8); LYMPHOCYTES % (AUTO) 11.8 % (21-51); MEAN CORPUSCULAR HEMOGLOBIN 29.3 PG (27.0-31.0); MEAN CORPUSCULAR HGB CONC 32.1 g/dL (33.0-36.5); MEAN CORPUSCULAR VOLUME 91.4 FL (78-98); MEAN PLATELET VOLUME 9.5 FL (7.4-10.4); MONOCYTES # (AUTO) 0.7 X10'3 (0-0.9); MONOCYTES % (AUTO) 10.6 % (2-12); NEUTROPHILS # (AUTO) 4.9 X10'3 (1.8-7.7); NEUTROPHILS % (AUTO) 74.7 % (42-75); PLATELET COUNT 188 X10'3 (140-440); RED BLOOD COUNT 3.14 X10'6 (4.70-6.10); RED CELL DISTRIBUTION WIDTH 17.1 % (11.5-14.5); WHITE BLOOD COUNT 6.5 X10'3 (4.5-11.0)
[2020-01-08 03:42] LABS: ALANINE AMINOTRANSFERASE 22 U/L (12-78); ALBUMIN 3.1 G/DL (3.4-5.0); ALBUMIN/GLOBULIN RATIO 0.8 (1.1-1.5); ALKALINE PHOSPHATASE 154 IU/L (46-116); ANION GAP 14 (8-16); ASPARTATE AMINO TRANSFERASE 16 U/L (10-37); BILIRUBIN,TOTAL 0.4 MG/DL (0.1-1.0); BLOOD UREA NITROGEN 102 MG/DL (7-18); CHLORIDE 103 MMOL/L (99-107); CREATININE 6.37 MG/DL (0.60-1.10); GLUCOSE 76 MG/DL (70-104); POTASSIUM 4.1 MMOL/L (3.5-5.1); SODIUM 141 MMOL/L (135-145); TOTAL CARBON DIOXIDE 23.9 MMOL/L (24-32); TOTAL PROTEIN 7.1 G/DL (6.4-8.2); eGFR 9 ML/MIN
[2020-01-08 03:48] LABS: CALCIUM 5.8 MG/DL (8.5-10.1)
--- NOTE | 2020-01-08 04:36 | NUR ---
Critical calcium level 5.8 called to John, no new orders placed Alessia RN
[2020-01-08 06:00] VITALS: BP 91/62
--- NOTE | 2020-01-08 06:44 | NUR ---
Patient in room MED 309. I have received report from umm chen and had the opportunity to ask questions and assume patient care.
[2020-01-08] MEDS: apixaban 2.5mg tablet PO SCH ×2 (08:08→20:35)
[2020-01-08] MEDS: calcium carbonate 500mg tablet PO SCH ×3 (08:09→20:35)
[2020-01-08] MEDS: carVEDilol 12.5mg tablet PO SCH ×2 (08:09→20:35)
[2020-01-08] MEDS: atorvastatin 10mg tablet PO SCH (08:09)
[2020-01-08 10:00] VITALS: BP 111/73
[2020-01-08 14:00] VITALS: BP 127/97
--- NOTE | 2020-01-08 14:00 | NUR ---
dr. christine,vitaly quiñones aware large whitish milain soft stool
--- NOTE | 2020-01-08 14:54 | NUR ---
Nutrition consult: RN TC reports pt is very particular w/ food preferences and agitated declining majority of appropriate alternative options on heart healthy diet. Pt has no teeth at this time but declines texture modification per RN. Pt seen by RD for food preferences; pt requests cooked veggies only given edentulism and dislikes eggs, vonda, cucumber, turkey, caffeine, tea. Pt is agreeable to plain roast beef sandwich w/ mustard and ketchup packet for main entree tonight w/ sides modified given preferences. IZABELA d/w dietary; dietary staff to see pt each morning to review food menu and pt preferences while remaining in current heart healthy appropriate restrictions. To f/u 01/11 for initial assessment. Addendum: 01/08/20 at [address] Amended: Links added.
[2020-01-08] MEDS ORDERED: HYDROcodone/acetaminophen 10/325mg tab PO ONE (16:40)
[2020-01-08 16:42] LABS: CLARITY,URINE CLEAR (Clear); COLOR,URINE YELLOW (Yellow); GLUCOSE, URINE NEGATIVE (Neg); KETONES,URINE NEGATIVE (Neg); LEUKOCYTE ESTERASE ,URINE NEGATIVE (Neg); NITRITES, URINE NEGATIVE (Neg); OCCULT BLOOD,URINE SMALL (Neg); PROTEIN,URINE TRACE mg/dl (Neg); UROBILINOGEN,URINE 0.2 E.U/dL (0.2-1.0)
[2020-01-08 16:44] LABS: UA COLLECTION TYPE VOIDED
[2020-01-08 16:45] LABS: TOTAL PROTEIN,URINE RANDOM 37.6 MG/DL
[2020-01-08 16:55] LABS: BACTERIA,URINE FEW /HPF (Neg); RBC,URINE 0-2 /HPF (0-2); SQUAMOUS EPITHELIAL CELL,UR NONE SEEN /LPF (FEW); WBC,URINE 0-4 /HPF (0-4)
[2020-01-08 17:15] LABS: UA EOSINOPHILS NO EOS /HPF
[2020-01-08 18:00] VITALS: BP 123/76
--- NOTE | 2020-01-08 18:04 | NUR ---
Patient in room MED 309. I have received report from CORNIA THRASHER and had the opportunity to ask questions and assume patient care.
--- NOTE | 2020-01-08 18:14 | NUR ---
Problems reprioritized. Patient report given, questions answered & plan of care reviewed with umm chen.
--- NOTE | 2020-01-08 20:24 | NUR ---
PATIENT IN "EXTREME, WRITHING PAIN". REQUESTED GABAPENTIN; CALLED MD REGARDING PAIN ISSUES, CONVERSION OF MED REC. BASED ON CREATININE LEVEL, Addendum: 01/08/20 at 2024 by Gila Armas RN ONLY CONTINUED 10-325 HYDROCODONE AT THIS TIME
[2020-01-08] MEDS: HYDROcodone/acetaminophen 10/325mg tab PO PRN ×2 (20:35→23:43)
[2020-01-08 22:00] VITALS: BP 111/80
[2020-01-09] VITALS (7 sets, daily range): BP systolic 88–123; BP diastolic 52–81
[2020-01-09 05:36] LABS: ALANINE AMINOTRANSFERASE 20 U/L (12-78); ALBUMIN 2.9 G/DL (3.4-5.0); ALBUMIN/GLOBULIN RATIO 0.7 (1.1-1.5); ALKALINE PHOSPHATASE 144 IU/L (46-116); ANION GAP 14 (8-16); ASPARTATE AMINO TRANSFERASE 17 U/L (10-37); BILIRUBIN,TOTAL 0.5 MG/DL (0.1-1.0); BLOOD UREA NITROGEN 96 MG/DL (7-18); BUN/CREATININE RATIO 16.2 (5.4-32.0); CHLORIDE 104 MMOL/L (99-107); CREATININE 5.91 MG/DL (0.60-1.10); GLUCOSE 84 MG/DL (70-104); MAGNESIUM 1.9 MG/DL (1.5-2.4); POTASSIUM 3.7 MMOL/L (3.5-5.1); SODIUM 141 MMOL/L (135-145); TOTAL CARBON DIOXIDE 23.5 MMOL/L (24-32); TOTAL PROTEIN 7.1 G/DL (6.4-8.2); eGFR 10 ML/MIN
[2020-01-09 05:38] LABS: BASOPHILS % (AUTO) 0.5 % (0-1); EOSINOPHILS # (AUTO) 0.1 X10'3 (0-0.9); EOSINOPHILS % (AUTO) 1.9 % (0-6); HEMATOCRIT 28.7 % (42.0-52.0); HEMOGLOBIN 9.2 g/dl (14.0-17.9); LYMPHOCYTES % (AUTO) 15.3 % (21-51); MEAN CORPUSCULAR HEMOGLOBIN 29.5 PG (27.0-31.0); MEAN CORPUSCULAR VOLUME 92.4 FL (78-98); MEAN PLATELET VOLUME 9.4 FL (7.4-10.4); MONOCYTES # (AUTO) 0.7 X10'3 (0-0.9); MONOCYTES % (AUTO) 10.6 % (2-12); NEUTROPHILS # (AUTO) 4.7 X10'3 (1.8-7.7); NEUTROPHILS % (AUTO) 71.7 % (42-75); PLATELET COUNT 178 X10'3 (140-440); RED BLOOD COUNT 3.11 X10'6 (4.70-6.10); RED CELL DISTRIBUTION WIDTH 17.1 % (11.5-14.5); WHITE BLOOD COUNT 6.6 X10'3 (4.5-11.0)
[2020-01-09 05:42] LABS: CALCIUM 5.2 MG/DL (8.5-10.1)
--- NOTE | 2020-01-09 05:44 | NUR ---
Critical Calcium 5.2 reported to pager hospitalist John
--- NOTE | 2020-01-09 06:14 | NUR ---
Problems reprioritized. Patient report given, questions answered & plan of care reviewed with Luiza THRASHER.
--- NOTE | 2020-01-09 06:15 | NUR ---
Patient in room MED 309. I have received report from ANNA MARIE Uriostegui and had the opportunity to ask questions and assume patient care.
[2020-01-09] MEDS: carVEDilol 12.5mg tablet PO SCH ×2 (08:27→20:06)
[2020-01-09] MEDS: atorvastatin 10mg tablet PO SCH (08:27)
[2020-01-09] MEDS: apixaban 2.5mg tablet PO SCH ×2 (08:27→20:05)
[2020-01-09] MEDS: calcium carbonate 500mg tablet PO SCH ×3 (08:27→17:48)
[2020-01-09] MEDS ORDERED: calcium gluconate inj. 1 GM in normal saline 100ml IV soln 100 ML IV ONE (08:45)
[2020-01-09] MEDS ORDERED: CALCIUM GLUC 1gm/50ml NACL,iso 100 ML IV ONE (09:00)
[2020-01-09] MEDS: normal saline 1000ml 1,000 ML IV SCH ×2 (09:05→20:05)
[2020-01-09] MEDS ORDERED: HYDROcodone/acetaminophen 10/325mg tab PO PRN (11:35)
[2020-01-09] MEDS ORDERED: nitroGLYCERIN 0.4mg SUBLingual tab SL PRN (11:35)
[2020-01-09] MEDS: DICLOFENAC SODIUM TOP SCH ×2 (14:00→20:00)
[2020-01-09] MEDS: levalbuterol 0.63mg/3ml nebule IH SCH ×2 (14:00→20:16)
[2020-01-09] MEDS: gabapentin 300mg capsule PO SCH ×2 (14:01→20:09)
--- NOTE | 2020-01-09 18:40 | NUR ---
Problems reprioritized. Patient report given, questions answered & plan of care reviewed with .ANNA MARIE NEAL
[2020-01-09] MEDS: HYDROcodone/acetaminophen 10/325mg tab PO PRN (20:06)
[2020-01-10] MEDS: HYDROcodone/acetaminophen 10/325mg tab PO PRN ×2 (00:23→18:09)
--- NOTE | 2020-01-10 00:54 | NUR ---
pt sarcastic, difficult to understand humor. seems to be complaining about all of his care. ate poorly, difficult fo him to get comfortable. noted c/o pain and norco given for pain
[2020-01-10] MEDS: DICLOFENAC SODIUM TOP SCH ×4 (02:00→20:00)
[2020-01-10 02:10] VITALS: BP 98/56
[2020-01-10] MEDS: levalbuterol 0.63mg/3ml nebule IH SCH ×4 (02:40→20:05)
[2020-01-10] MEDS: normal saline 1000ml 1,000 ML IV SCH ×2 (05:05→20:35)
[2020-01-10 05:58] LABS: BASOPHILS % (AUTO) 0.5 % (0-1); EOSINOPHILS % (AUTO) 0.1 % (0-6); HEMATOCRIT 30.1 % (42.0-52.0); HEMOGLOBIN 9.5 g/dl (14.0-17.9); LYMPHOCYTES # (AUTO) 0.4 X10'3 (1.1-4.8); LYMPHOCYTES % (AUTO) 4.5 % (21-51); MEAN CORPUSCULAR HEMOGLOBIN 29.5 PG (27.0-31.0); MEAN CORPUSCULAR HGB CONC 31.5 g/dL (33.0-36.5); MEAN CORPUSCULAR VOLUME 93.5 FL (78-98); MEAN PLATELET VOLUME 9.7 FL (7.4-10.4); MONOCYTES % (AUTO) 10.6 % (2-12); NEUTROPHILS # (AUTO) 8.2 X10'3 (1.8-7.7); NEUTROPHILS % (AUTO) 84.3 % (42-75); PLATELET COUNT 176 X10'3 (140-440); RED BLOOD COUNT 3.22 X10'6 (4.70-6.10); RED CELL DISTRIBUTION WIDTH 17.4 % (11.5-14.5); WHITE BLOOD COUNT 9.7 X10'3 (4.5-11.0)
[2020-01-10 06:00] VITALS: BP 107/67
--- NOTE | 2020-01-10 06:15 | NUR ---
Patient in room MED 309. I have received report from umm heard and had the opportunity to ask questions and assume patient care.
[2020-01-10 06:16] LABS: ALANINE AMINOTRANSFERASE 17 U/L (12-78); ALBUMIN 2.9 G/DL (3.4-5.0); ALBUMIN/GLOBULIN RATIO 0.7 (1.1-1.5); ALKALINE PHOSPHATASE 133 IU/L (46-116); ANION GAP 14 (8-16); ASPARTATE AMINO TRANSFERASE 18 U/L (10-37); BILIRUBIN,TOTAL 0.4 MG/DL (0.1-1.0); BLOOD UREA NITROGEN 87 MG/DL (7-18); BUN/CREATININE RATIO 14.9 (5.4-32.0); CHLORIDE 103 MMOL/L (99-107); CREATININE 5.85 MG/DL (0.60-1.10); GLUCOSE 98 MG/DL (70-104); MAGNESIUM 1.8 MG/DL (1.5-2.4); POTASSIUM 4.2 MMOL/L (3.5-5.1); SODIUM 140 MMOL/L (135-145); eGFR 10 ML/MIN
[2020-01-10 06:19] LABS: CALCIUM 5.4 MG/DL (8.5-10.1)
--- NOTE | 2020-01-10 06:26 | NUR ---
reported to days. noted pt resting w/o distress.
--- NOTE | 2020-01-10 07:02 | NUR ---
Dr. rosario notified of critical calcium of 5.4 by page.
[2020-01-10] MEDS: gabapentin 300mg capsule PO SCH ×3 (08:56→20:34)
[2020-01-10] MEDS: multivitamins, therapeutics tablet PO SCH (08:56)
[2020-01-10] MEDS: ferrous sulfate 325mg tablet PO SCH (08:56)
[2020-01-10] MEDS: apixaban 2.5mg tablet PO SCH ×2 (08:57→20:34)
[2020-01-10] MEDS: calcium carbonate 500mg tablet PO SCH ×3 (08:57→17:35)
[2020-01-10] MEDS: carVEDilol 12.5mg tablet PO SCH ×2 (08:57→20:34)
[2020-01-10] MEDS: atorvastatin 10mg tablet PO SCH (08:57)
[2020-01-10 10:00] VITALS: BP 99/56
[2020-01-10] MEDS: calcium acetate 667mg (PhosLO) capsule PO SCH ×2 (13:10→17:35)
[2020-01-10 14:00] VITALS: BP 102/60
--- NOTE | 2020-01-10 18:31 | NUR ---
Problems reprioritized. Patient report given, questions answered & plan of care reviewed with ANNA MARIE WILSON.
[2020-01-10 20:00] VITALS: BP 93/36
[2020-01-10 23:00] VITALS: BP 86/50
[2020-01-11] VITALS (7 sets, daily range): BP systolic 84–100; BP diastolic 46–64
[2020-01-11] MEDS: normal saline 1000ml 1,000 ML IV SCH ×4 (01:05→22:00)
[2020-01-11] MEDS: DICLOFENAC SODIUM TOP SCH ×3 (01:19→14:00)
--- NOTE | 2020-01-11 01:19 | NUR ---
Patient is currently hypotensive with systolic BPs in the 70/80s and MAP under 60. Pt was aroused from sleep, placed in Trendelenburg bed position, and given a nursing NS bolus of 250 mL. Will continue to closely monitor.
--- NOTE | 2020-01-11 01:52 | NUR ---
PAGER ID: [phone] MESSAGE: Patient Micky Wilson in room 309 is hypotensive with SBP in the 70s. Pt was given ordered Coreg of 25 mg BID earlier in shift. Nursing NS bolus of 250 mL given without resolve. MINNIE Dumas [phone] Addendum: 01/11/20 at 0159 by Hilary Engel RN MD [facility] ordered additional NS bolus of 500 mL and close monitoring.
[2020-01-11] MEDS: levalbuterol 0.63mg/3ml nebule IH SCH ×4 (02:47→20:37)
--- NOTE | 2020-01-11 03:34 | NUR ---
Pt continues to be asymptomatic and hypotensive. Most recent BP being 87/57 with a MAP of 67. Pt is A/O4 and states that he normally runs low BP while sleeping. Will continue to closely monitor.
[2020-01-11 06:05] LABS: BASOPHILS % (AUTO) 0.4 % (0-1); EOSINOPHILS % (AUTO) 0.1 % (0-6); HEMATOCRIT 30.6 % (42.0-52.0); HEMOGLOBIN 9.9 g/dl (14.0-17.9); LYMPHOCYTES # (AUTO) 0.6 X10'3 (1.1-4.8); LYMPHOCYTES % (AUTO) 7.3 % (21-51); MEAN CORPUSCULAR HEMOGLOBIN 30.1 PG (27.0-31.0); MEAN CORPUSCULAR HGB CONC 32.2 g/dL (33.0-36.5); MEAN CORPUSCULAR VOLUME 93.7 FL (78-98); MEAN PLATELET VOLUME 9.5 FL (7.4-10.4); MONOCYTES # (AUTO) 0.9 X10'3 (0-0.9); MONOCYTES % (AUTO) 10.9 % (2-12); NEUTROPHILS % (AUTO) 81.3 % (42-75); PLATELET COUNT 171 X10'3 (140-440); RED BLOOD COUNT 3.27 X10'6 (4.70-6.10); RED CELL DISTRIBUTION WIDTH 17.3 % (11.5-14.5); WHITE BLOOD COUNT 8.6 X10'3 (4.5-11.0)
[2020-01-11 06:17] LABS: ALANINE AMINOTRANSFERASE 20 U/L (12-78); ALBUMIN 2.8 G/DL (3.4-5.0); ALBUMIN/GLOBULIN RATIO 0.7 (1.1-1.5); ALKALINE PHOSPHATASE 135 IU/L (46-116); ANION GAP 14 (8-16); ASPARTATE AMINO TRANSFERASE 21 U/L (10-37); BILIRUBIN,TOTAL 0.6 MG/DL (0.1-1.0); BLOOD UREA NITROGEN 89 MG/DL (7-18); BUN/CREATININE RATIO 14.6 (5.4-32.0); CHLORIDE 104 MMOL/L (99-107); CREATININE 6.09 MG/DL (0.60-1.10); GLUCOSE 98 MG/DL (70-104); POTASSIUM 4.5 MMOL/L (3.5-5.1); SODIUM 138 MMOL/L (135-145); TOTAL CARBON DIOXIDE 19.9 MMOL/L (24-32); TOTAL PROTEIN 6.9 G/DL (6.4-8.2); eGFR 9 ML/MIN
--- NOTE | 2020-01-11 06:21 | NUR ---
Problems reprioritized. Patient report given, questions answered & plan of care reviewed with ANNA MARIE Mtz.
[2020-01-11 06:24] LABS: CALCIUM 5.8 MG/DL (8.5-10.1)
--- NOTE | 2020-01-11 06:42 | NUR ---
Patient in room MED 309. I have received report from ANNA MARIE Dumas and had the opportunity to ask questions and assume patient care.
--- NOTE | 2020-01-11 07:38 | NUR ---
PAGER ID: [phone] MESSAGE: [phone]: Micky Sloant: FYI - Calcium went up from 5.4 to 5.8 -blake [phone]
[2020-01-11] MEDS: calcium carbonate 500mg tablet PO SCH ×3 (09:04→17:35)
[2020-01-11] MEDS: gabapentin 300mg capsule PO SCH ×3 (09:04→21:16)
[2020-01-11] MEDS: apixaban 2.5mg tablet PO SCH ×2 (09:04→21:19)
[2020-01-11] MEDS: multivitamins, therapeutics tablet PO SCH (09:04)
[2020-01-11] MEDS: atorvastatin 10mg tablet PO SCH (09:04)
[2020-01-11] MEDS: ferrous sulfate 325mg tablet PO SCH (09:04)
[2020-01-11] MEDS: calcium acetate 667mg (PhosLO) capsule PO SCH ×3 (09:13→17:35)
--- NOTE | 2020-01-11 10:14 | NUR ---
New orders for NS to run at 60cc/hr
--- NOTE | 2020-01-11 10:59 | NUR ---
PAGER ID: [phone] MESSAGE: [phone]: Micky Wilson: pt SBP 80-90s, MAP ~ 55, would you like a fluid bolus or would you like for me to refer to Vanna? - Francesca [phone]
--- NOTE | 2020-01-11 11:53 | NUR ---
New orders from [facility] for one time 500cc bolus for hypotension
[2020-01-11] MEDS ORDERED: normal saline 1000ml 1,000 ML IV ONE (11:55)
[2020-01-11] MEDS ORDERED: normal saline 500ml IV soln 500 ML IV ONE (12:00)
--- NOTE | 2020-01-11 14:00 | NUR ---
PAGED FOR ULTRASOUND GUIDED IV START. I INTRODUCED MYSELF TO PATIENT AND EXPLAINED WHY I WAS THERE. PT IS ALERT ORIENTED AND STATED HE KNEW WHY I WAS THERE. I WAS SETTING UP IV START EQUIPMENT PT STATED "HERE YOU GO HOW'S THIS FOR YA" HE THEN PROCEEDED TO ROLL AWAY FROM ME AND THEN PASSED GAS LOUDLY IN MY FACE AND THEN STATED "TAKE THAT". I LEFT ROOM AFTER PLACING BED IN LOW POSITION AND ADVISED PT THAT I WOULD NOT TOLERATE ABUSIVE BEHAVIOR AND WOULD NOT RETURN TO ROOM UNTIL HE COULD BEHAVE APPROPRIATELY. MELBA THRASHER NOTIFIED. Gael CHANDRA PICC RN
[2020-01-11] MEDS ORDERED: DICLOFENAC SODIUM TOP PRN (16:37)
--- NOTE | 2020-01-11 18:10 | NUR ---
Patient in room MED 309. I have received report from Francesca THRASHER and had the opportunity to ask questions and assume patient care.
--- NOTE | 2020-01-11 18:12 | NUR ---
Problems reprioritized. Patient report given, questions answered & plan of care reviewed with ANNA MARIE Uriostegui.
[2020-01-11] MEDS: HYDROcodone/acetaminophen 10/325mg tab PO PRN (21:17)
[2020-01-12] MEDS: levalbuterol 0.63mg/3ml nebule IH SCH ×4 (02:46→20:00)
[2020-01-12] MEDS: HYDROcodone/acetaminophen 10/325mg tab PO PRN ×2 (02:48→21:49)
[2020-01-12 06:00] VITALS: BP 94/56
[2020-01-12 06:23] LABS: ALANINE AMINOTRANSFERASE 19 U/L (12-78); ALBUMIN 2.6 G/DL (3.4-5.0); ALBUMIN/GLOBULIN RATIO 0.7 (1.1-1.5); ALKALINE PHOSPHATASE 130 IU/L (46-116); ANION GAP 14 (8-16); ASPARTATE AMINO TRANSFERASE 29 U/L (10-37); BASOPHILS % (AUTO) 0.6 % (0-1); BILIRUBIN,TOTAL 0.6 MG/DL (0.1-1.0); BLOOD UREA NITROGEN 93 MG/DL (7-18); BUN/CREATININE RATIO 14.2 (5.4-32.0); CHLORIDE 102 MMOL/L (99-107); CREATININE 6.57 MG/DL (0.60-1.10); EOSINOPHILS % (AUTO) 0.2 % (0-6); GLUCOSE 94 MG/DL (70-104); HEMATOCRIT 28.4 % (42.0-52.0); HEMOGLOBIN 8.9 g/dl (14.0-17.9); LYMPHOCYTES # (AUTO) 0.6 X10'3 (1.1-4.8); LYMPHOCYTES % (AUTO) 7.2 % (21-51); MEAN CORPUSCULAR HEMOGLOBIN 29.6 PG (27.0-31.0); MEAN CORPUSCULAR HGB CONC 31.4 g/dL (33.0-36.5); MEAN CORPUSCULAR VOLUME 94.2 FL (78-98); MEAN PLATELET VOLUME 10.2 FL (7.4-10.4); MONOCYTES # (AUTO) 0.8 X10'3 (0-0.9); MONOCYTES % (AUTO) 10.7 % (2-12); NEUTROPHILS # (AUTO) 6.2 X10'3 (1.8-7.7); NEUTROPHILS % (AUTO) 81.3 % (42-75); PLATELET COUNT 177 X10'3 (140-440); RED BLOOD COUNT 3.01 X10'6 (4.70-6.10); SODIUM 136 MMOL/L (135-145); TOTAL CARBON DIOXIDE 20.2 MMOL/L (24-32); TOTAL PROTEIN 6.5 G/DL (6.4-8.2); WHITE BLOOD COUNT 7.7 X10'3 (4.5-11.0); eGFR 9 ML/MIN
[2020-01-12 06:26] LABS: POTASSIUM 4.9 MMOL/L (3.5-5.1)
--- NOTE | 2020-01-12 06:30 | NUR ---
Patient in room MED 309. I have received report from Gila THRASHER and had the opportunity to ask questions and assume patient care.
--- NOTE | 2020-01-12 06:48 | NUR ---
[id number] Dr Valentine [phone] Murtaza Wilson sent page about wrong pt. This pt has a Critical Lab Calcium 6.0 [phone] Vera Thank You
[2020-01-12] MEDS: atorvastatin 10mg tablet PO SCH (08:00)
[2020-01-12] MEDS: gabapentin 300mg capsule PO SCH ×3 (08:00→19:59)
[2020-01-12] MEDS: ferrous sulfate 325mg tablet PO SCH (08:00)
[2020-01-12] MEDS: apixaban 2.5mg tablet PO SCH ×2 (08:00→19:59)
[2020-01-12] MEDS: multivitamins, therapeutics tablet PO SCH (08:00)
[2020-01-12] MEDS: calcium acetate 667mg (PhosLO) capsule PO SCH ×3 (08:00→20:02)
[2020-01-12] MEDS: calcium carbonate 500mg tablet PO SCH ×3 (08:30→19:58)
[2020-01-12 11:00] VITALS: BP 77/55
--- NOTE | 2020-01-12 12:03 | NUR ---
DR. ALVAREZ PAGED: PAGER ID: [phone] MESSAGE: [phone]: NAYLOR - very drowsy, unable to take PO meds. ?ABGs. calcium still Low, cret worse. :( nurse monet [phone]
--- NOTE | 2020-01-12 12:45 | NUR ---
Dr Yeboah came to assess pt due to his being obtunded for most of the day. Pt when he was awoken was A&O but went back to sleep. VS have remained stable, None of the pt's po meds were given due his inability to stay awake. Dr Yeboah ordered BiPAP and ABG. Respiratory came reassessed pt placed on BIPAP and ABG being drawn.
[2020-01-12 13:06] LABS: ABG BASE EXCESS -11.7 mmol/L (-2.0-2.0); ABG HCO3 18.1 mmol/L (22.0-26.0); ABG OXYGEN SATURATION 95.4 % (94-97); ABG PCO2 (T) 61.5 mmHg (35.0-48.0); ABG PO2 (T) 93.1 mmHg (75.0-100.0); ALLEN'S TEST POSITIVE; FLOW 2 L/min; FMetHb 0.6 % (0.0-1.5); FO2Hb 94.8 % (94-97); TOTAL HEMOGLOBIN 10.3 G/dl (14.0-18.0)
[2020-01-12] MEDS: normal saline 1000ml 1,000 ML IV SCH (14:53)
[2020-01-12 15:00] VITALS: BP 97/56
--- NOTE | 2020-01-12 15:53 | NUR ---
Initial: Pt admit with acute on chronic renal failure and hypocalcemia. Pt receiving Ca replacement. Agronomy Research Manager follow for kidney status. Pt on a heart healthy diet with average 25% PO intake up to 75-100% PO intake x three meals however back down to 25% PO intake at dinner last night. No documentation of PO intake today. Per MD notes pt more confused and pt drowsy and unable to take PO meds at this time per RN notes. Recommend BSS with ST to assess need for texture modification. Will continue to follow closely and monitor need for appropriate nutrition intervention pending BSS with ST. Recommendations: 1) Continue heart healthy diet; monitor electrolytes and need to add renal diet 2) Texture modification per ST pending BSS 3) Routine PhosLo per MD 4) Routine bowel care 5) Scaled weights per rx Addendum: 01/12/20 at [address] Amended: Links added.
[2020-01-12 16:21] LABS: ABG HCO3 17.9 mmol/L (22.0-26.0); ABG OXYGEN SATURATION 95.2 % (94-97); ABG PCO2 (T) 60.8 mmHg (35.0-48.0); ABG PO2 (T) 83.7 mmHg (75.0-100.0); ALLEN'S TEST POSITIVE; FCOHb 0.5 % (0.0-3.9); FMetHb 0.5 % (0.0-1.5); FO2Hb 94.2 % (94-97); RESPIRATORY RATE 18 b/min; TOTAL HEMOGLOBIN 10.9 G/dl (14.0-18.0)
[2020-01-12 17:20] LABS: ABG BASE EXCESS -12.3 mmol/L (-2.0-2.0); ABG OXYGEN SATURATION 95.8 % (94-97); ABG PCO2 (T) 54.8 mmHg (35.0-48.0); ABG PO2 (T) 90.7 mmHg (75.0-100.0); ALLEN'S TEST POSITIVE; FCOHb 0.1 % (0.0-3.9); FMetHb 0.5 % (0.0-1.5); FO2Hb 95.2 % (94-97); RESPIRATORY RATE 22 b/min; TOTAL HEMOGLOBIN 10.7 G/dl (14.0-18.0)
[2020-01-12 18:00] VITALS: BP 89/60
[2020-01-12 18:51] LABS: ABG BASE EXCESS -11.9 mmol/L (-2.0-2.0); ABG HCO3 17.7 mmol/L (22.0-26.0); ABG OXYGEN SATURATION 94.4 % (94-97); ABG PCO2 (T) 57.6 mmHg (35.0-48.0); ABG PO2 (T) 80.6 mmHg (75.0-100.0); ALLEN'S TEST POSITIVE; FCOHb 0.3 % (0.0-3.9); FMetHb 0.7 % (0.0-1.5); FO2Hb 93.5 % (94-97); PATIENT TEMPERATURE 36.7; TOTAL HEMOGLOBIN 10.8 G/dl (14.0-18.0)
--- NOTE | 2020-01-12 19:00 | NUR ---
Jose Haley called to report latest ABG's- new settings are IPAP 28 EPAP 5, O2 30%, RR 22; repeat ABG at 2100 [facility] RN
[2020-01-12 20:00] VITALS: BP 99/62
[2020-01-12 21:40] LABS: ABG BASE EXCESS -12.5 mmol/L (-2.0-2.0); ABG HCO3 16.1 mmol/L (22.0-26.0); ABG OXYGEN SATURATION 96.4 % (94-97); ABG PCO2 (T) 48.2 mmHg (35.0-48.0); ABG PO2 (T) 96.7 mmHg (75.0-100.0); ALLEN'S TEST POSITIVE; FCOHb 0.2 % (0.0-3.9); FMetHb 0.8 % (0.0-1.5); FO2Hb 95.4 % (94-97); RESPIRATORY RATE 24 b/min; TOTAL HEMOGLOBIN 10.9 G/dl (14.0-18.0)
[2020-01-12 22:00] VITALS: BP 117/75
--- NOTE | 2020-01-12 22:07 | NUR ---
Notified Jose Haley for critical ABG results-no new orders at this time.
[2020-01-13] VITALS: BP 112/71
[2020-01-13 02:00] VITALS: BP 115/73
[2020-01-13] MEDS: levalbuterol 0.63mg/3ml nebule IH SCH ×4 (02:16→20:11)
[2020-01-13 04:00] VITALS: BP 117/43
[2020-01-13 05:16] LABS: BASOPHILS % (AUTO) 0.3 % (0-1); EOSINOPHILS % (AUTO) 0.1 % (0-6); HEMATOCRIT 31.3 % (42.0-52.0); HEMOGLOBIN 9.6 g/dl (14.0-17.9); LYMPHOCYTES # (AUTO) 0.6 X10'3 (1.1-4.8); LYMPHOCYTES % (AUTO) 9.6 % (21-51); MEAN CORPUSCULAR HEMOGLOBIN 28.9 PG (27.0-31.0); MEAN CORPUSCULAR HGB CONC 30.6 g/dL (33.0-36.5); MEAN CORPUSCULAR VOLUME 94.4 FL (78-98); MEAN PLATELET VOLUME 10.5 FL (7.4-10.4); MONOCYTES # (AUTO) 0.6 X10'3 (0-0.9); MONOCYTES % (AUTO) 9.9 % (2-12); NEUTROPHILS # (AUTO) 5.2 X10'3 (1.8-7.7); NEUTROPHILS % (AUTO) 80.1 % (42-75); PLATELET COUNT 205 X10'3 (140-440); RED BLOOD COUNT 3.32 X10'6 (4.70-6.10); RED CELL DISTRIBUTION WIDTH 17.9 % (11.5-14.5); WHITE BLOOD COUNT 6.5 X10'3 (4.5-11.0)
[2020-01-13 06:33] LABS: ANISOCYTOSIS 1+; HYPOCHROMASIA 1+; LARGE PLATELETS FEW; PLATELET ESTIMATE NORMAL; POLYCHROMASIA FEW
[2020-01-13 06:34] LABS: POIKILOCYTOSIS FEW
--- NOTE | 2020-01-13 07:00 | NUR ---
PATIENT REFUSING BIPAP AT THIS TIME. MORE ALERT AND ORIENTATED THIS AM. REPEAT ABGs DONE
[2020-01-13] MEDS: atorvastatin 10mg tablet PO SCH (07:54)
[2020-01-13] MEDS: ferrous sulfate 325mg tablet PO SCH (07:54)
[2020-01-13] MEDS: calcium carbonate 500mg tablet PO SCH ×3 (07:54→19:46)
[2020-01-13] MEDS: gabapentin 300mg capsule PO SCH ×3 (07:54→19:46)
[2020-01-13] MEDS: HYDROcodone/acetaminophen 10/325mg tab PO PRN ×4 (07:56→20:05)
[2020-01-13] MEDS: calcium acetate 667mg (PhosLO) capsule PO SCH ×3 (08:00→19:58)
[2020-01-13] MEDS: apixaban 2.5mg tablet PO SCH ×2 (08:00→19:45)
--- NOTE | 2020-01-13 08:00 | NUR ---
Nurse assessed pt with 2 PT therapist and we were able to finally get uo moved around to edge of bed only because he does not tolerate position changes and will refuse for staff to move him around or position to be able to assess him fully. Due to his size it takes a least 3 people to really do a major position changes, but 2 people can use pillows to offset pressure. Pt is difficult and refuses many things such as turning or trying to assess him fully. He stated off this morning refuse the BIPAP. He was placed on 2 Lpm nc 4 lpm and has remained > than 91% with it. Yesterday pt was very obtunded and was very difficult to wake just for very short moment before sleeping again. Sternal rubs needed to wake him. He was placed on BIPAP by and blood gases showed critical CO2. He did not tolerate moving at all and would either wake enough to fight the movement and/or O2 sats were dropped with movement. Nurses cleaned him up and tried to evaluate and clean his skin as much as possible. During his assessment with PT holding pt nurse was able to see a DTI to in deep in between gluteal fold of sacrum nurse has to separate the skin to see it. The pt stated he had had this for sometime, it did not hurt and [facility] was treating it with powder and sometimes a cream. Nurse finally was able to fully assess and find it bathing him while PT helped keeping him turned to a position where it was really visible. Nu to bathed him with Comfort Cloths, changed his gown and bedding. Nurse also found redness in the panis on the R side. Nurse saw Wound Care Nurse and she came in to assess right away. She stated that it was not a new Decub and was unstagable. She put in an order for Nystatin and barrier cream, and to try and keep pt as he tolerates and does not refuse, off of it as much as possible. Pillows used to reposition pt as staff had been doing yesterday and last night. Pt will be monitored frequently, repositioned as tolerated and not refused due to his pain. Nystatin and barrier cream started. Photos were taken pf the gluteal fold and placed in chart.
--- NOTE | 2020-01-13 08:00 | NUR ---
Late note pt did not tolerate any major turns or position changes yesterday and due to his having a critical ABG Co2 and Ca+ and being obtunded but waking just enough to pull back and try to push staffs hands off of him or yell We were only able to use pillows for off setting pressure.
[2020-01-13] MEDS: multivitamins, therapeutics tablet PO SCH (08:05)
[2020-01-13 08:18] LABS: ALBUMIN 2.7 G/DL (3.4-5.0); ANION GAP 17 (8-16); BLOOD UREA NITROGEN 105 MG/DL (7-18); BUN/CREATININE RATIO 14.5 (5.4-32.0); CALCIUM 6.5 MG/DL (8.5-10.1); CHLORIDE 106 MMOL/L (99-107); CREATININE 7.25 MG/DL (0.60-1.10); GLUCOSE 75 MG/DL (70-104); SODIUM 141 MMOL/L (135-145); eGFR 8 ML/MIN
[2020-01-13 08:45] LABS: ABG BASE EXCESS -12.2 mmol/L (-2.0-2.0); ABG HCO3 15.9 mmol/L (22.0-26.0); ABG OXYGEN SATURATION 95.8 % (94-97); ABG PCO2 (T) 45.2 mmHg (35.0-48.0); ABG PO2 (T) 87.7 mmHg (75.0-100.0); ALLEN'S TEST POSITIVE; FCOHb 0.1 % (0.0-3.9); FLOW 3 L/min; FMetHb 0.5 % (0.0-1.5); FO2Hb 95.2 % (94-97); TOTAL HEMOGLOBIN 10.7 G/dl (14.0-18.0)
[2020-01-13] MEDS ORDERED: sodium bicarbonate (8.4%) inj. 100 MEQ in dextrose 5%-water 1,000 ML IV SCH (09:20)
--- NOTE | 2020-01-13 09:32 | NUR ---
DR. ALVAREZ PAGED: PAGER ID: [phone] MESSAGE: [phone]: CYNDY Goldstein said yesterday bicarb gtt wasn't needed. still ok to give? nurse Lalitha [phone]
--- NOTE | 2020-01-13 12:54 | NUR ---
Pt finally got his 2nd dose of Phos Low because the [facility] did not have it stocked enough for his dose. When pharmacy was called [facility] earlier about it they stated they had it waiting for pt down there, but this was new told to [facility] staff. Nurse stated we were all very busy here and if they could bring it up NICHOL due to pt's low Ca+. When they brought it it was too close to the second dose to gibe the first so second dose ordered for the TID eas given.
--- NOTE | 2020-01-13 13:56 | NUR ---
dr. rosario paged: PAGER ID: [phone] MESSAGE: [phone]: Katie christine D/C'pat molina, getting IR to place dialysis catheter
[2020-01-13] MEDS ORDERED: LIDOcaine 1%/PF 5ML 10 MG/ML VIAL ONE (14:22)
[2020-01-13] MEDS ORDERED: fentaNYL/PF 50MCG/1 ML 2ML syringe ONE (14:47)
[2020-01-13] MEDS ORDERED: heparin 1,000unit/ml 10ml vial 10 ML ONE (14:49)
[2020-01-13] MEDS ORDERED: normal saline 1000ml 250 ML IV PRN (15:20)
[2020-01-13] MEDS ORDERED: heparin 1,000unit/ml 10ml vial 10 ML IV ONE (15:20)
[2020-01-13] MEDS ORDERED: epoetin 20,000 units/ml inj IV ONE (15:20)
[2020-01-13] MEDS ORDERED: heparin 1,000 units/ml 10ml inj HE ONE ×2 (15:25)
--- NOTE | 2020-01-13 15:35 | NUR ---
Pt back from getting Dialysis Assess placed. Site is free from any s/s of complications and pt VS are stable and O2 Sats are >92% on 3 Lpm at this time.
--- NOTE | 2020-01-13 18:00 | NUR ---
Patient in room MED 309. I have received report from GAIL THRASHER and had the opportunity to ask questions and assume patient care.
--- NOTE | 2020-01-13 18:09 | NUR ---
ADDENDUM TO 2 RN SKIN CHECK- PATIENT NOTED TO HAVE PREXISTING SKIN CONDITION ON SACRUM WHICH HAS BEEN DOCUMENTED BY WOUND NURSE01/13/20. - NOT FOUND ON ADMISSION DUE TO PATIENTS PAIN LEVEL AND REFUSING TO TURN DUE TO CHRONIC PAIN ISSUES AND ALTERED LEVEL OF CONSCIOUSNESS DUE TO HYPOCALCEMIA AND ELEVATED BUN/CREATININE LEVELS, ALTERING HIS MENTATION AND ABILITY TO FOLLOW INSTRUCTIONS. JAGJIT RN TREATMENT FOR WOUND HAS BEGUN 01/13/20 PER [facility] ORDER, DOCUMENTED VIA PHOTOGRAPHS IN CHART Addendum: 01/13/20 at 1829 by Gila Armas RN Amended: Links added.
[2020-01-13 19:00] VITALS: BP 143/91
[2020-01-13] MEDS: nystatin 15 GM powder TP SCH (19:47)
[2020-01-13 21:00] VITALS: BP 139/76
[2020-01-13 23:00] VITALS: BP 149/83
[2020-01-14 01:00] VITALS: BP 141/70
[2020-01-14] MEDS: levalbuterol 0.63mg/3ml nebule IH SCH ×4 (02:37→20:16)
[2020-01-14 03:00] VITALS: BP 140/64
[2020-01-14 05:00] VITALS: BP 115/78
[2020-01-14 06:15] LABS: BASOPHILS # (AUTO) 0.1 X10'3 (0-0.2); BASOPHILS % (AUTO) 0.8 % (0-1); EOSINOPHILS # (AUTO) 0.1 X10'3 (0-0.9); EOSINOPHILS % (AUTO) 0.8 % (0-6); HEMATOCRIT 29.2 % (42.0-52.0); HEMOGLOBIN 9.3 g/dl (14.0-17.9); LYMPHOCYTES # (AUTO) 0.7 X10'3 (1.1-4.8); LYMPHOCYTES % (AUTO) 9.3 % (21-51); MEAN CORPUSCULAR HEMOGLOBIN 29.4 PG (27.0-31.0); MEAN CORPUSCULAR HGB CONC 31.9 g/dL (33.0-36.5); MEAN CORPUSCULAR VOLUME 92.2 FL (78-98); MEAN PLATELET VOLUME 9.6 FL (7.4-10.4); MONOCYTES # (AUTO) 0.7 X10'3 (0-0.9); MONOCYTES % (AUTO) 10.1 % (2-12); NEUTROPHILS # (AUTO) 5.7 X10'3 (1.8-7.7); PLATELET COUNT 199 X10'3 (140-440); RED BLOOD COUNT 3.17 X10'6 (4.70-6.10); WHITE BLOOD COUNT 7.2 X10'3 (4.5-11.0)
[2020-01-14 06:37] LABS: ALBUMIN 2.6 G/DL (3.4-5.0); ANION GAP 14 (8-16); BLOOD UREA NITROGEN 82 MG/DL (7-18); BUN/CREATININE RATIO 13.5 (5.4-32.0); CALCIUM 6.3 MG/DL (8.5-10.1); CHLORIDE 104 MMOL/L (99-107); CREATININE 6.06 MG/DL (0.60-1.10); GLUCOSE 75 MG/DL (70-104); POTASSIUM 4.3 MMOL/L (3.5-5.1); SODIUM 140 MMOL/L (135-145); eGFR 9 ML/MIN
[2020-01-14] MEDS: nystatin 15 GM powder TP SCH ×2 (08:00→20:05)
[2020-01-14] MEDS ORDERED: normal saline 1000ml 250 ML IV PRN (08:00)
[2020-01-14] MEDS ORDERED: heparin 1,000 units/ml 10ml inj HE ONE ×2 (08:00)
[2020-01-14] MEDS ORDERED: epoetin 20,000 units/ml inj IV ONE (08:00)
[2020-01-14] MEDS ORDERED: heparin 1,000unit/ml 10ml vial 10 ML IV ONE (08:00)
[2020-01-14] MEDS: atorvastatin 10mg tablet PO SCH (08:00)
[2020-01-14] MEDS: calcium carbonate 500mg tablet PO SCH ×3 (08:30→17:30)
[2020-01-14] MEDS: gabapentin 300mg capsule PO SCH ×3 (08:43→20:06)
[2020-01-14] MEDS: ferrous sulfate 325mg tablet PO SCH (08:43)
[2020-01-14] MEDS: apixaban 2.5mg tablet PO SCH ×2 (08:43→20:05)
[2020-01-14] MEDS: calcium acetate 667mg (PhosLO) capsule PO SCH ×3 (08:43→18:00)
[2020-01-14] MEDS: HYDROcodone/acetaminophen 10/325mg tab PO PRN ×3 (08:51→20:08)
[2020-01-14] MEDS: multivitamins, therapeutics tablet PO SCH (09:02)
--- NOTE | 2020-01-14 11:55 | NUR ---
VASCULAR PAGED FOR VENOUS STUDY R LEG, R/O DVT, EVAL EDEMA/PAIN
--- NOTE | 2020-01-14 16:26 | NUR ---
DR. BEDOLLA PAGED: PAGER ID: [phone] MESSAGE: [phone]: NAYLOR - FYI NO LEG CLOT :D
[2020-01-14 18:00] VITALS: BP 93/61
--- NOTE | 2020-01-14 19:55 | NUR ---
Pt had no dinner tray in room upon my shift. Addendum: 01/14/20 at 6 by Georgia Cummins RN Amended: Links added.
[2020-01-14 22:00] VITALS: BP 103/63
[2020-01-15 02:00] VITALS: BP 111/69
[2020-01-15] MEDS: HYDROcodone/acetaminophen 10/325mg tab PO PRN ×2 (02:39→20:06)
[2020-01-15] MEDS: levalbuterol 0.63mg/3ml nebule IH SCH ×4 (03:07→20:54)
[2020-01-15 06:00] VITALS: BP 111/81
--- NOTE | 2020-01-15 06:33 | NUR ---
Patient in room MED 309. I have received report from Reva THRASHER had the opportunity to ask questions and assume patient care.
[2020-01-15 08:20] LABS: BASOPHILS % (AUTO) 0.6 % (0-1); EOSINOPHILS # (AUTO) 0.1 X10'3 (0-0.9); EOSINOPHILS % (AUTO) 1.3 % (0-6); HEMOGLOBIN 8.9 g/dl (14.0-17.9); LYMPHOCYTES # (AUTO) 0.7 X10'3 (1.1-4.8); LYMPHOCYTES % (AUTO) 10.1 % (21-51); MEAN CORPUSCULAR HEMOGLOBIN 29.2 PG (27.0-31.0); MEAN CORPUSCULAR HGB CONC 31.8 g/dL (33.0-36.5); MEAN CORPUSCULAR VOLUME 91.8 FL (78-98); MEAN PLATELET VOLUME 9.3 FL (7.4-10.4); MONOCYTES % (AUTO) 15.3 % (2-12); NEUTROPHILS # (AUTO) 4.8 X10'3 (1.8-7.7); NEUTROPHILS % (AUTO) 72.7 % (42-75); PLATELET COUNT 206 X10'3 (140-440); RED BLOOD COUNT 3.05 X10'6 (4.70-6.10); RED CELL DISTRIBUTION WIDTH 17.8 % (11.5-14.5); WHITE BLOOD COUNT 6.6 X10'3 (4.5-11.0)
[2020-01-15 08:38] LABS: ALANINE AMINOTRANSFERASE 21 U/L (12-78); ALBUMIN 2.6 G/DL (3.4-5.0); ALBUMIN/GLOBULIN RATIO 0.7 (1.1-1.5); ALKALINE PHOSPHATASE 115 IU/L (46-116); ANION GAP 11 (8-16); ASPARTATE AMINO TRANSFERASE 38 U/L (10-37); BILIRUBIN,TOTAL 0.6 MG/DL (0.1-1.0); BLOOD UREA NITROGEN 56 MG/DL (7-18); BUN/CREATININE RATIO 12.4 (5.4-32.0); CALCIUM 6.4 MG/DL (8.5-10.1); CHLORIDE 106 MMOL/L (99-107); CREATININE 4.52 MG/DL (0.60-1.10); GLUCOSE 88 MG/DL (70-104); PHOSPHORUS 4.1 MG/DL (2.3-4.5); POTASSIUM 3.8 MMOL/L (3.5-5.1); SODIUM 142 MMOL/L (135-145); TOTAL CARBON DIOXIDE 24.7 MMOL/L (24-32); TOTAL PROTEIN 6.6 G/DL (6.4-8.2); eGFR 13 ML/MIN
[2020-01-15] MEDS: ferrous sulfate 325mg tablet PO SCH (09:31)
[2020-01-15] MEDS: calcium acetate 667mg (PhosLO) capsule PO SCH ×3 (09:31→17:50)
[2020-01-15] MEDS: gabapentin 300mg capsule PO SCH ×3 (09:32→21:44)
[2020-01-15] MEDS: calcium carbonate 500mg tablet PO SCH ×3 (09:32→17:50)
[2020-01-15] MEDS: multivitamins, therapeutics tablet PO SCH (09:32)
[2020-01-15] MEDS: apixaban 2.5mg tablet PO SCH ×2 (09:32→20:06)
[2020-01-15] MEDS: atorvastatin 10mg tablet PO SCH (09:32)
[2020-01-15] MEDS: nystatin 15 GM powder TP SCH ×2 (09:33→20:20)
[2020-01-15 09:51] LABS: MAGNESIUM 1.9 MG/DL (1.5-2.4)
[2020-01-15 10:00] VITALS: BP 130/87
[2020-01-15] MEDS ORDERED: ondansetron 4mg rapidly disintigrating tab PO PRN (11:17)
[2020-01-15 11:28] LABS: HBSAG SCREEN Negative (Negative)
[2020-01-15] MEDS: amiodarone 100mg tablet PO SCH (12:07)
--- NOTE | 2020-01-15 12:07 | NUR ---
Reassessment: Pt s/p TDC for and HD past 2 days for renal failure per EMR. PO 75% avg breakfast and lunch yesterday though 0% 2 days prior w/ poor PO ~25% avg this admit not meeting needs. on MM5 diet given edentulism though had declined texture mod previously. Pt is extremely particular regarding food preferences and is being seen by dietary for menu preferences. Also noted pt non-compliance w/ care plans per EMR. LBM 01/12 per RN; RD d/w RN regarding routine bowel care if MD agreeable since receiving iron and LBM 4 days prior to today. Regular diet ordered s/p TDC likely accident; RD d/w RN to cancel and return to MM5/HH diet if MD agreeable. RD recommends Nepro TIDWM given poor PO hx; MD notified. Will continue to monitor. Recommendations: 1) Continue heart healthy/MM5 diet per [employer] CUSTODIAN recs diet; if poor PO persists consider liberalization to regular; encourage PO 2) Nepro TIDWM; encourage PO 3) Routine PhosLo w/ meals 4) Routine bowel care 5) wts w/ HD Addendum: 01/15/20 at [address] Amended: Links added.
[2020-01-15 14:00] VITALS: BP 143/84
--- NOTE | 2020-01-15 18:20 | NUR ---
Problems reprioritized. Patient report given, questions answered & plan of care reviewed with Sulema salomon.
[2020-01-15 18:30] VITALS: BP 107/70
[2020-01-15 22:00] VITALS: BP 107/70
[2020-01-16 02:00] VITALS: BP 101/71
[2020-01-16] MEDS: levalbuterol 0.63mg/3ml nebule IH SCH ×4 (02:23→20:05)
[2020-01-16 05:31] LABS: BASOPHILS # (AUTO) 0.1 X10'3 (0-0.2); BASOPHILS % (AUTO) 1.1 % (0-1); EOSINOPHILS # (AUTO) 0.1 X10'3 (0-0.9); EOSINOPHILS % (AUTO) 1.8 % (0-6); HEMATOCRIT 25.9 % (42.0-52.0); HEMOGLOBIN 8.2 g/dl (14.0-17.9); LYMPHOCYTES # (AUTO) 0.8 X10'3 (1.1-4.8); LYMPHOCYTES % (AUTO) 13.5 % (21-51); MEAN CORPUSCULAR HEMOGLOBIN 29.3 PG (27.0-31.0); MEAN CORPUSCULAR HGB CONC 31.8 g/dL (33.0-36.5); MEAN CORPUSCULAR VOLUME 92.1 FL (78-98); MEAN PLATELET VOLUME 9.2 FL (7.4-10.4); MONOCYTES # (AUTO) 0.9 X10'3 (0-0.9); MONOCYTES % (AUTO) 15.4 % (2-12); NEUTROPHILS # (AUTO) 4.1 X10'3 (1.8-7.7); NEUTROPHILS % (AUTO) 68.2 % (42-75); PLATELET COUNT 209 X10'3 (140-440); RED BLOOD COUNT 2.81 X10'6 (4.70-6.10); WHITE BLOOD COUNT 6.1 X10'3 (4.5-11.0)
[2020-01-16] MEDS: HYDROcodone/acetaminophen 10/325mg tab PO PRN ×2 (05:32→12:46)
[2020-01-16 05:53] LABS: ALANINE AMINOTRANSFERASE 17 U/L (12-78); ALBUMIN 2.4 G/DL (3.4-5.0); ALBUMIN/GLOBULIN RATIO 0.6 (1.1-1.5); ALKALINE PHOSPHATASE 107 IU/L (46-116); ANION GAP 8 (8-16); ASPARTATE AMINO TRANSFERASE 28 U/L (10-37); BILIRUBIN,TOTAL 0.5 MG/DL (0.1-1.0); BLOOD UREA NITROGEN 55 MG/DL (7-18); BUN/CREATININE RATIO 11.8 (5.4-32.0); CHLORIDE 108 MMOL/L (99-107); CREATININE 4.68 MG/DL (0.60-1.10); GLUCOSE 81 MG/DL (70-104); POTASSIUM 3.6 MMOL/L (3.5-5.1); SODIUM 143 MMOL/L (135-145); TOTAL CARBON DIOXIDE 27.4 MMOL/L (24-32); TOTAL PROTEIN 6.2 G/DL (6.4-8.2); eGFR 13 ML/MIN
[2020-01-16 06:00] VITALS: BP 123/90
--- NOTE | 2020-01-16 06:41 | NUR ---
Problems reprioritized. Patient report given, questions answered & plan of care reviewed with Luiza. Addendum: 01/16/20 at 0641 by Froylan Cano RN Amended: Links added.
[2020-01-16] MEDS ORDERED: epoetin 20,000 units/ml inj IV ONE (07:55)
[2020-01-16] MEDS ORDERED: normal saline 1000ml 250 ML IV PRN (07:55)
[2020-01-16] MEDS ORDERED: heparin 1,000unit/ml 10ml vial 10 ML IV ONE (07:55)
[2020-01-16] MEDS ORDERED: heparin 1,000 units/ml 10ml inj HE ONE ×2 (08:00)
[2020-01-16] MEDS: nystatin 15 GM powder TP SCH ×2 (08:00→19:17)
[2020-01-16] MEDS: gabapentin 300mg capsule PO SCH ×3 (08:10→21:53)
[2020-01-16] MEDS: multivitamins, therapeutics tablet PO SCH (08:10)
[2020-01-16] MEDS: calcium acetate 667mg (PhosLO) capsule PO SCH ×3 (08:10→19:16)
[2020-01-16] MEDS: calcium carbonate 500mg tablet PO SCH ×3 (08:10→19:16)
[2020-01-16] MEDS: ferrous sulfate 325mg tablet PO SCH (08:10)
[2020-01-16] MEDS: atorvastatin 10mg tablet PO SCH (08:10)
[2020-01-16] MEDS: apixaban 2.5mg tablet PO SCH ×2 (08:10→19:16)
[2020-01-16 14:00] VITALS: BP 140/100
[2020-01-16] MEDS: amiodarone 100mg tablet PO SCH (15:12)
[2020-01-16] MEDS: predniSONE 20 mg tablet PO SCH (15:13)
--- NOTE | 2020-01-16 15:29 | NUR ---
CHECKED ON PT, DIALYSIS NURSE AT BEDSIDE. ADMIN MEDS.
[2020-01-16 17:00] VITALS: BP 138/102
[2020-01-16 18:00] VITALS: BP 152/101
--- NOTE | 2020-01-16 18:28 | NUR ---
Received report from ANNA MARIE Salas. Patient is awake and alert on 2L NC, in no apparent distress. Call light and items of frequent use within reach. Will continue to monitor.
[2020-01-16 22:00] VITALS: BP 149/109
[2020-01-17 02:00] VITALS: BP 145/101
[2020-01-17] MEDS: levalbuterol 0.63mg/3ml nebule IH SCH ×4 (02:29→20:43)
[2020-01-17 05:44] LABS: BASOPHILS % (AUTO) 0.2 % (0-1); EOSINOPHILS % (AUTO) 0 % (0-6); HEMATOCRIT 30.2 % (42.0-52.0); HEMOGLOBIN 9.5 g/dl (14.0-17.9); LYMPHOCYTES # (AUTO) 0.3 X10'3 (1.1-4.8); LYMPHOCYTES % (AUTO) 5.1 % (21-51); MEAN CORPUSCULAR HEMOGLOBIN 29.2 PG (27.0-31.0); MEAN CORPUSCULAR HGB CONC 31.4 g/dL (33.0-36.5); MEAN CORPUSCULAR VOLUME 92.8 FL (78-98); MEAN PLATELET VOLUME 8.8 FL (7.4-10.4); MONOCYTES # (AUTO) 0.3 X10'3 (0-0.9); MONOCYTES % (AUTO) 4.1 % (2-12); NEUTROPHILS # (AUTO) 5.9 X10'3 (1.8-7.7); NEUTROPHILS % (AUTO) 90.6 % (42-75); PLATELET COUNT 258 X10'3 (140-440); RED BLOOD COUNT 3.25 X10'6 (4.70-6.10); WHITE BLOOD COUNT 6.5 X10'3 (4.5-11.0)
[2020-01-17 05:51] LABS: ALANINE AMINOTRANSFERASE 22 U/L (12-78); ALBUMIN 2.8 G/DL (3.4-5.0); ALBUMIN/GLOBULIN RATIO 0.6 (1.1-1.5); ALKALINE PHOSPHATASE 127 IU/L (46-116); ANION GAP 7 (8-16); ASPARTATE AMINO TRANSFERASE 35 U/L (10-37); BILIRUBIN,TOTAL 0.5 MG/DL (0.1-1.0); BLOOD UREA NITROGEN 33 MG/DL (7-18); BUN/CREATININE RATIO 9.6 (5.4-32.0); CALCIUM 7.9 MG/DL (8.5-10.1); CHLORIDE 104 MMOL/L (99-107); CREATININE 3.44 MG/DL (0.60-1.10); GLUCOSE 118 MG/DL (70-104); POTASSIUM 4.3 MMOL/L (3.5-5.1); SODIUM 140 MMOL/L (135-145); TOTAL CARBON DIOXIDE 28.6 MMOL/L (24-32); TOTAL PROTEIN 7.2 G/DL (6.4-8.2); eGFR 18 ML/MIN
[2020-01-17 06:00] VITALS: BP 129/91
--- NOTE | 2020-01-17 06:26 | NUR ---
Problems reprioritized. Patient report given, questions answered & plan of care reviewed with ANNA MARIE Allen.
--- NOTE | 2020-01-17 06:42 | NUR ---
Patient in room MED 309. I have received report from Kelly THRASHER and had the opportunity to ask questions and assume patient care.
[2020-01-17] MEDS: calcium carbonate 500mg tablet PO SCH ×3 (08:13→17:36)
[2020-01-17] MEDS: ferrous sulfate 325mg tablet PO SCH (08:13)
[2020-01-17] MEDS: predniSONE 20 mg tablet PO SCH (08:13)
[2020-01-17] MEDS: multivitamins, therapeutics tablet PO SCH (08:13)
[2020-01-17] MEDS: calcium acetate 667mg (PhosLO) capsule PO SCH ×3 (08:13→17:36)
[2020-01-17] MEDS: gabapentin 300mg capsule PO SCH ×3 (08:13→20:51)
[2020-01-17] MEDS: atorvastatin 10mg tablet PO SCH (08:14)
[2020-01-17] MEDS: apixaban 2.5mg tablet PO SCH ×2 (08:14→20:51)
[2020-01-17] MEDS: nystatin 15 GM powder TP SCH ×2 (08:14→20:51)
[2020-01-17] MEDS: amiodarone 100mg tablet PO SCH (08:14)
[2020-01-17 11:00] VITALS: BP 156/116
--- NOTE | 2020-01-17 11:13 | NUR ---
reported trending elevated HR of [address] dotson, received orders to start cardizem CD 180 mg qd to start now.
[2020-01-17] MEDS: diltiazem CD 180mg cap (once-daily) PO SCH (11:35)
[2020-01-17] MEDS: HYDROcodone/acetaminophen 10/325mg tab PO PRN ×2 (11:37→18:51)
[2020-01-17 12:00] LABS: HBSAG SCREEN Negative (Negative); HEP B CORE AB, TOT Negative (Negative)
[2020-01-17 15:00] VITALS: BP 142/93
[2020-01-17 18:00] VITALS: BP 136/96
--- NOTE | 2020-01-17 18:13 | NUR ---
Problems reprioritized. Patient report given, questions answered & plan of care reviewed with Latosha THRASHER.
--- NOTE | 2020-01-17 18:14 | NUR ---
Patient in room MED 309. I have received report from Alejandro THRASHER and had the opportunity to ask questions and assume patient care.
[2020-01-17 22:00] VITALS: BP 111/75
[2020-01-18 01:15] LABS: BASOPHILS % (AUTO) 0.4 % (0-1); EOSINOPHILS % (AUTO) 0 % (0-6); HEMATOCRIT 28.6 % (42.0-52.0); HEMOGLOBIN 9.2 g/dl (14.0-17.9); MEAN CORPUSCULAR HGB CONC 32.2 g/dL (33.0-36.5); MONOCYTES # (AUTO) 0.5 X10'3 (0-0.9)
[2020-01-18 01:17] LABS: LYMPHOCYTES # (AUTO) 0.5 X10'3 (1.1-4.8); LYMPHOCYTES % (AUTO) 5.9 % (21-51); MEAN CORPUSCULAR HEMOGLOBIN 30.2 PG (27.0-31.0); MEAN CORPUSCULAR VOLUME 93.7 FL (78-98); MEAN PLATELET VOLUME 8.5 FL (7.4-10.4); MONOCYTES % (AUTO) 6.2 % (2-12); NEUTROPHILS # (AUTO) 7.5 X10'3 (1.8-7.7); NEUTROPHILS % (AUTO) 87.5 % (42-75); PLATELET COUNT 278 X10'3 (140-440); RED BLOOD COUNT 3.05 X10'6 (4.70-6.10); RED CELL DISTRIBUTION WIDTH 18.2 % (11.5-14.5); WHITE BLOOD COUNT 8.5 X10'3 (4.5-11.0)
[2020-01-18 01:29] LABS: ALANINE AMINOTRANSFERASE 20 U/L (12-78); ALBUMIN 2.8 G/DL (3.4-5.0); ALBUMIN/GLOBULIN RATIO 0.7 (1.1-1.5); ALKALINE PHOSPHATASE 123 IU/L (46-116); ANION GAP 6 (8-16); ASPARTATE AMINO TRANSFERASE 31 U/L (10-37); BILIRUBIN,TOTAL 0.5 MG/DL (0.1-1.0); BLOOD UREA NITROGEN 41 MG/DL (7-18); BUN/CREATININE RATIO 10.8 (5.4-32.0); CALCIUM 7.8 MG/DL (8.5-10.1); CHLORIDE 105 MMOL/L (99-107); CREATININE 3.81 MG/DL (0.60-1.10); GLUCOSE 115 MG/DL (70-104); POTASSIUM 4.3 MMOL/L (3.5-5.1); SODIUM 140 MMOL/L (135-145); TOTAL CARBON DIOXIDE 29.3 MMOL/L (24-32); eGFR 16 ML/MIN
--- NOTE | 2020-01-18 01:32 | NUR ---
Patient able to reposition self, with minimal assistance. I educate patient on q turning every 2 hours. Patient states he is turning on his own. And he likes to stay on his right side more. I will continue to educate and monitor patient.
--- NOTE | 2020-01-18 01:41 | NUR ---
continual education made to patient and reassessment made on wound status. I continually educate patient on frequent turning. Patient states he stays off bottom but does not like turning to his left
[2020-01-18 02:00] VITALS: BP 101/77
[2020-01-18] MEDS: levalbuterol 0.63mg/3ml nebule IH SCH ×4 (02:24→20:47)
[2020-01-18 06:00] VITALS: BP 112/82
--- NOTE | 2020-01-18 07:30 | NUR ---
Patient in room MED 309. I have received report from umm gale and had the opportunity to ask questions and assume patient care.
[2020-01-18] MEDS: predniSONE 20 mg tablet PO SCH (07:31)
[2020-01-18] MEDS: calcium carbonate 500mg tablet PO SCH ×3 (07:31→18:06)
[2020-01-18] MEDS: diltiazem CD 180mg cap (once-daily) PO SCH (07:31)
[2020-01-18] MEDS: calcium acetate 667mg (PhosLO) capsule PO SCH ×3 (07:31→18:04)
[2020-01-18] MEDS: apixaban 2.5mg tablet PO SCH ×2 (07:33→20:42)
[2020-01-18] MEDS: amiodarone 100mg tablet PO SCH (07:33)
[2020-01-18] MEDS: multivitamins, therapeutics tablet PO SCH (07:33)
[2020-01-18] MEDS: nystatin 15 GM powder TP SCH ×2 (07:33→20:42)
[2020-01-18] MEDS: atorvastatin 10mg tablet PO SCH (07:33)
[2020-01-18] MEDS: gabapentin 300mg capsule PO SCH ×3 (07:33→20:42)
[2020-01-18] MEDS: HYDROcodone/acetaminophen 10/325mg tab PO PRN ×2 (07:33→18:06)
[2020-01-18] MEDS: ferrous sulfate 325mg tablet PO SCH (07:33)
[2020-01-18] MEDS ORDERED: epoetin 20,000 units/ml inj IV ONE (08:00)
[2020-01-18] MEDS ORDERED: normal saline 1000ml 250 ML IV PRN (08:00)
[2020-01-18] MEDS ORDERED: heparin 1,000 units/ml 10ml inj HE ONE ×2 (08:00)
[2020-01-18] MEDS ORDERED: heparin 1,000unit/ml 10ml vial 10 ML IV ONE (08:00)
[2020-01-18 10:00] VITALS: BP 120/79
--- NOTE | 2020-01-18 12:14 | NUR ---
Reassessment: Pt continues to receive HD with noted wt fluctuation however possible error as admit wt documented as 273 lbs and current wt documented as 389 lbs within 8 days with negative fluid balance of 9.4L per I&O. Pt on heart healthy diet with no texture modifications, average PO intake is 25-50% with occasional 0%, pt is not meeting estimated needs. RD regulatory affairs intern met with pt at bedside and discussed appetite. 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 Soy allergy makes pt nauseous per pt. D/w dietary to send gravy on side with lunch and dinner to help moisten meats and to send hard boiled eggs with breakfast as pt was agreeable. Pt denies need for texture modifications d/t pt having dentures now. Last BM 01/16, PRN bowel care available. Will continue to monitor. Recommendations: 1) Continue heart healthy; if poor PO persists consider liberalization to regular; encourage PO 2) Elma food preferences, gravy on side BIDLD, dislikes scrambled eggs, but agreeable to hard boiled eggs at breakfast 3) Karen ARELLANO pending MD approval in EMR 4) Routine PhosLo w/ meals 5) Routine bowel care 6) wts w/ HD Addendum: 01/18/20 at [address] Amended: Links added. Addendum: 01/18/20 at [address] I have reviewed and agree with note by Podiatrist. Amelia Zarate RD
[2020-01-18 14:00] VITALS: BP 149/99
--- NOTE | 2020-01-18 16:58 | NUR ---
pt placed on air bed,per orders
[2020-01-18 18:00] VITALS: BP 130/89
--- NOTE | 2020-01-18 18:20 | NUR ---
Problems reprioritized. Patient report given, questions answered & plan of care reviewed with umm Hernandez.
--- NOTE | 2020-01-18 18:34 | NUR ---
Patient in room MED 309. I have received report from Luiza THRASHER and had the opportunity to ask questions and assume patient care.
[2020-01-18 22:00] VITALS: BP 116/76
[2020-01-19 02:00] VITALS: BP 131/89
[2020-01-19] MEDS: levalbuterol 0.63mg/3ml nebule IH SCH ×4 (03:27→20:52)
[2020-01-19 06:00] VITALS: BP 137/79
--- NOTE | 2020-01-19 06:27 | NUR ---
Patient in room MED 309. I have received report from umm Reina and had the opportunity to ask questions and assume patient care.
[2020-01-19 06:29] LABS: BASOPHILS % (AUTO) 0.2 % (0-1); EOSINOPHILS % (AUTO) 0.1 % (0-6); HEMATOCRIT 28.3 % (42.0-52.0); HEMOGLOBIN 9.1 g/dl (14.0-17.9); LYMPHOCYTES # (AUTO) 0.8 X10'3 (1.1-4.8); LYMPHOCYTES % (AUTO) 8.4 % (21-51); MEAN CORPUSCULAR HEMOGLOBIN 30.3 PG (27.0-31.0); MEAN CORPUSCULAR HGB CONC 32.2 g/dL (33.0-36.5); MEAN PLATELET VOLUME 8.7 FL (7.4-10.4); MONOCYTES # (AUTO) 0.7 X10'3 (0-0.9); MONOCYTES % (AUTO) 7.6 % (2-12); NEUTROPHILS # (AUTO) 7.9 X10'3 (1.8-7.7); NEUTROPHILS % (AUTO) 83.7 % (42-75); PLATELET COUNT 288 X10'3 (140-440); RED BLOOD COUNT 3.01 X10'6 (4.70-6.10); RED CELL DISTRIBUTION WIDTH 18.2 % (11.5-14.5); WHITE BLOOD COUNT 9.4 X10'3 (4.5-11.0)
--- NOTE | 2020-01-19 06:33 | NUR ---
Problems reprioritized. Patient report given, questions answered & plan of care reviewed with Luiza THRASHER.
[2020-01-19 06:56] LABS: ALANINE AMINOTRANSFERASE 28 U/L (12-78); ALBUMIN 2.8 G/DL (3.4-5.0); ALBUMIN/GLOBULIN RATIO 0.7 (1.1-1.5); ALKALINE PHOSPHATASE 113 IU/L (46-116); ANION GAP 5 (8-16); ASPARTATE AMINO TRANSFERASE 28 U/L (10-37); BILIRUBIN,TOTAL 0.5 MG/DL (0.1-1.0); BLOOD UREA NITROGEN 24 MG/DL (7-18); BUN/CREATININE RATIO 9.1 (5.4-32.0); CALCIUM 7.6 MG/DL (8.5-10.1); CHLORIDE 105 MMOL/L (99-107); CREATININE 2.64 MG/DL (0.60-1.10); GLUCOSE 97 MG/DL (70-104); MAGNESIUM 1.9 MG/DL (1.5-2.4); SODIUM 142 MMOL/L (135-145); TOTAL CARBON DIOXIDE 31.7 MMOL/L (24-32); TOTAL PROTEIN 6.7 G/DL (6.4-8.2); eGFR 24 ML/MIN
[2020-01-19] MEDS: multivitamins, therapeutics tablet PO SCH (09:12)
[2020-01-19] MEDS: gabapentin 300mg capsule PO SCH ×3 (09:12→22:23)
[2020-01-19] MEDS: atorvastatin 10mg tablet PO SCH (09:12)
[2020-01-19] MEDS: predniSONE 20 mg tablet PO SCH (09:12)
[2020-01-19] MEDS: calcium carbonate 500mg tablet PO SCH ×3 (09:13→19:30)
[2020-01-19] MEDS: diltiazem CD 180mg cap (once-daily) PO SCH (09:13)
[2020-01-19] MEDS: ferrous sulfate 325mg tablet PO SCH (09:13)
[2020-01-19] MEDS: apixaban 2.5mg tablet PO SCH ×2 (09:13→19:31)
[2020-01-19] MEDS: amiodarone 100mg tablet PO SCH (09:14)
[2020-01-19] MEDS: calcium acetate 667mg (PhosLO) capsule PO SCH ×3 (09:14→19:31)
[2020-01-19] MEDS: nystatin 15 GM powder TP SCH ×2 (09:15→19:32)
[2020-01-19 10:00] VITALS: BP 132/88
[2020-01-19 14:00] VITALS: BP 134/87
[2020-01-19] MEDS: bisacodyl 10mg suppository rectal RC PRN (15:40)
[2020-01-19 18:00] VITALS: BP 138/91
--- NOTE | 2020-01-19 18:20 | NUR ---
Problems reprioritized. Patient report given, questions answered & plan of care reviewed with ANNA MARIE Keen.
[2020-01-19] MEDS ORDERED: diltiazem-D5W 125mg/125ml 125 ML IV SCH (21:10)
--- NOTE | 2020-01-19 21:12 | NUR ---
CALLED DR RUFFIN ABOUT PT SUSTAINING 130'S HR, NEW ORDER TO START GRIS STACY RECEIVED.
[2020-01-19 22:00] VITALS: BP 124/93
[2020-01-20 02:00] VITALS: BP 143/99
[2020-01-20] MEDS: levalbuterol 0.63mg/3ml nebule IH SCH ×4 (02:40→21:05)
[2020-01-20 06:00] VITALS: BP 147/106
[2020-01-20] MEDS: amiodarone 100mg tablet PO SCH (07:25)
[2020-01-20] MEDS: apixaban 2.5mg tablet PO SCH ×2 (07:25→20:59)
[2020-01-20] MEDS: diltiazem CD 180mg cap (once-daily) PO SCH (07:25)
[2020-01-20] MEDS: calcium acetate 667mg (PhosLO) capsule PO SCH ×3 (07:26→18:23)
[2020-01-20] MEDS: ferrous sulfate 325mg tablet PO SCH (07:26)
[2020-01-20] MEDS: predniSONE 20 mg tablet PO SCH (07:26)
[2020-01-20] MEDS: nystatin 15 GM powder TP SCH ×2 (07:26→21:08)
[2020-01-20] MEDS: multivitamins, therapeutics tablet PO SCH (07:26)
[2020-01-20] MEDS: gabapentin 300mg capsule PO SCH ×3 (07:26→20:59)
[2020-01-20] MEDS: atorvastatin 10mg tablet PO SCH (07:26)
[2020-01-20] MEDS: HYDROcodone/acetaminophen 10/325mg tab PO PRN ×2 (07:28→18:40)
[2020-01-20] MEDS ORDERED: heparin 1,000unit/ml 10ml vial 10 ML IV ONE (08:00)
[2020-01-20] MEDS ORDERED: normal saline 1000ml 250 ML IV PRN (08:00)
[2020-01-20] MEDS ORDERED: epoetin 20,000 units/ml inj IV ONE (08:00)
[2020-01-20] MEDS ORDERED: heparin 1,000 units/ml 10ml inj HE ONE ×2 (08:00)
--- NOTE | 2020-01-20 08:00 | NUR ---
Noted pt had Slough to the inner aspects of both sides of the inner area of coccx where pressure ulcer is located has thick pale yellow slough on both sides and another area to the very top of the area. On R side of uooer buttcks near to the inner areas of the wound the is an area with what appears to be an a friction / shear injury that has dried skin on top and very red underneath. On the left side it is very red. WCN not here today so nurse left message for WCN lon check it NICHOL Thursday due to pt might discharge. There was no drainage noted anywhere, no odor, and wound care Note for wound care on wound care notes
[2020-01-20 09:01] LABS: HEMATOCRIT 31.2 % (42.0-52.0); HEMOGLOBIN 9.7 g/dl (14.0-17.9); MEAN CORPUSCULAR VOLUME 93.4 FL (78-98); MEAN PLATELET VOLUME 8.5 FL (7.4-10.4); PLATELET COUNT 331 X10'3 (140-440); RED BLOOD COUNT 3.33 X10'6 (4.70-6.10); RED CELL DISTRIBUTION WIDTH 18.2 % (11.5-14.5); WHITE BLOOD COUNT 11.2 X10'3 (4.5-11.0)
[2020-01-20 10:24] LABS: BASOPHILS % (AUTO) 0.2 % (0-1); EOSINOPHILS % (AUTO) 0 % (0-6); HEMATOCRIT 32.2 % (42.0-52.0); HEMOGLOBIN 10.2 g/dl (14.0-17.9); LYMPHOCYTES # (AUTO) 0.3 X10'3 (1.1-4.8); LYMPHOCYTES % (AUTO) 3.2 % (21-51); MEAN CORPUSCULAR HEMOGLOBIN 29.9 PG (27.0-31.0); MEAN CORPUSCULAR HGB CONC 31.6 g/dL (33.0-36.5); MEAN CORPUSCULAR VOLUME 94.5 FL (78-98); MONOCYTES # (AUTO) 0.7 X10'3 (0-0.9); MONOCYTES % (AUTO) 6.4 % (2-12); NEUTROPHILS # (AUTO) 9.8 X10'3 (1.8-7.7); NEUTROPHILS % (AUTO) 90.2 % (42-75); PLATELET COUNT 322 X10'3 (140-440); RED BLOOD COUNT 3.41 X10'6 (4.70-6.10); RED CELL DISTRIBUTION WIDTH 18.2 % (11.5-14.5); WHITE BLOOD COUNT 10.9 X10'3 (4.5-11.0)
[2020-01-20 10:44] LABS: ANION GAP 11 (8-16); BLOOD UREA NITROGEN 35 MG/DL (7-18); BUN/CREATININE RATIO 10.1 (5.4-32.0); CHLORIDE 103 MMOL/L (99-107); CREATININE 3.46 MG/DL (0.60-1.10); GLUCOSE 104 MG/DL (70-104); POTASSIUM 4.4 MMOL/L (3.5-5.1); SODIUM 140 MMOL/L (135-145); TOTAL CARBON DIOXIDE 26.3 MMOL/L (24-32)
[2020-01-20 10:45] LABS: ALANINE AMINOTRANSFERASE 46 U/L (12-78); ALBUMIN 3.2 G/DL (3.4-5.0); ALBUMIN/GLOBULIN RATIO 0.8 (1.1-1.5); ALKALINE PHOSPHATASE 142 IU/L (46-116); ASPARTATE AMINO TRANSFERASE 48 U/L (10-37); BILIRUBIN,TOTAL 0.8 MG/DL (0.1-1.0); CALCIUM 7.7 MG/DL (8.5-10.1); MAGNESIUM 1.9 MG/DL (1.5-2.4); PHOSPHORUS 1.7 MG/DL (2.3-4.5); TOTAL PROTEIN 7.1 G/DL (6.4-8.2); eGFR 18 ML/MIN
[2020-01-20 11:00] VITALS: BP 120/87
[2020-01-20] MEDS: calcium carbonate 500mg tablet PO SCH ×3 (11:03→18:23)
[2020-01-20] MEDS: metoprolol succinate 25mg (24-HOUR) SR. Tablet PO SCH (11:04)
[2020-01-20 14:00] VITALS: BP 123/79
[2020-01-20 18:00] VITALS: BP 138/89
[2020-01-20 22:00] VITALS: BP 110/78
[2020-01-20] MEDS: bisacodyl 10mg suppository rectal RC PRN (22:11)
[2020-01-21 02:00] VITALS: BP 110/74
[2020-01-21] MEDS: levalbuterol 0.63mg/3ml nebule IH SCH ×2 (02:48→09:28)
[2020-01-21 04:36] LABS: BASOPHILS % (AUTO) 0.1 % (0-1); EOSINOPHILS % (AUTO) 0 % (0-6); HEMATOCRIT 30.9 % (42.0-52.0); HEMOGLOBIN 9.6 g/dl (14.0-17.9); LYMPHOCYTES % (AUTO) 8.2 % (21-51); MEAN CORPUSCULAR HEMOGLOBIN 28.9 PG (27.0-31.0); MEAN CORPUSCULAR VOLUME 93.2 FL (78-98); MEAN PLATELET VOLUME 8.2 FL (7.4-10.4); MONOCYTES % (AUTO) 8.8 % (2-12); NEUTROPHILS # (AUTO) 9.8 X10'3 (1.8-7.7); NEUTROPHILS % (AUTO) 82.9 % (42-75); PLATELET COUNT 328 X10'3 (140-440); RED BLOOD COUNT 3.31 X10'6 (4.70-6.10); RED CELL DISTRIBUTION WIDTH 18.1 % (11.5-14.5); WHITE BLOOD COUNT 11.8 X10'3 (4.5-11.0)
[2020-01-21 04:53] LABS: ANION GAP 6 (8-16); BILIRUBIN,TOTAL 0.7 MG/DL (0.1-1.0); BLOOD UREA NITROGEN 20 MG/DL (7-18); BUN/CREATININE RATIO 8.5 (5.4-32.0); CALCIUM 7.6 MG/DL (8.5-10.1); CHLORIDE 103 MMOL/L (99-107); CREATININE 2.35 MG/DL (0.60-1.10); GLUCOSE 85 MG/DL (70-104); MAGNESIUM 1.9 MG/DL (1.5-2.4); PHOSPHORUS 1.8 MG/DL (2.3-4.5); POTASSIUM 3.8 MMOL/L (3.5-5.1); SODIUM 141 MMOL/L (135-145); TOTAL CARBON DIOXIDE 31.8 MMOL/L (24-32); eGFR 28 ML/MIN
[2020-01-21 04:54] LABS: ALANINE AMINOTRANSFERASE 39 U/L (12-78); ALBUMIN 3.1 G/DL (3.4-5.0); ALBUMIN/GLOBULIN RATIO 0.9 (1.1-1.5); ALKALINE PHOSPHATASE 127 IU/L (46-116); ASPARTATE AMINO TRANSFERASE 32 U/L (10-37); TOTAL PROTEIN 6.7 G/DL (6.4-8.2)
[2020-01-21 06:00] VITALS: BP 126/92
--- NOTE | 2020-01-21 07:02 | NUR ---
Patient in room MED 309. I have received report from ANNA MARIE FLORES and had the opportunity to ask questions and assume patient care.
[2020-01-21] MEDS: ferrous sulfate 325mg tablet PO SCH (08:00)
[2020-01-21] MEDS: atorvastatin 10mg tablet PO SCH (08:00)
[2020-01-21] MEDS: multivitamins, therapeutics tablet PO SCH (08:50)
[2020-01-21] MEDS: calcium acetate 667mg (PhosLO) capsule PO SCH (08:50)
[2020-01-21] MEDS: predniSONE 20 mg tablet PO SCH (08:50)
[2020-01-21] MEDS: calcium carbonate 500mg tablet PO SCH (08:50)
[2020-01-21] MEDS: gabapentin 300mg capsule PO SCH (08:51)
[2020-01-21] MEDS: diltiazem CD 180mg cap (once-daily) PO SCH (08:51)
[2020-01-21] MEDS: metoprolol succinate 25mg (24-HOUR) SR. Tablet PO SCH (08:51)
[2020-01-21] MEDS: amiodarone 100mg tablet PO SCH (08:51)
[2020-01-21] MEDS: apixaban 2.5mg tablet PO SCH (08:51)
[2020-01-21] MEDS: nystatin 15 GM powder TP SCH (08:55)
[2020-01-21 11:00] VITALS: BP 126/90
== END 2020-01-21 12:00 | DRG 673 ==
LOC: ER 11:31 → ED HOLD 17:05 → MED 3N 19:58
PROVIDERS: ADMIT Family Medicine; ATTEND Family Medicine
PROC: 5A09357 Assistance with Respiratory Ventilation, Less than 24 Consecutive Hours, Continuous Positive Airway Pressure (ICD-10-PCS; 2020-01-12)
PROC: 0JH63XZ Insertion of Tunneled Vascular Access Device into Chest Subcutaneous Tissue and Fascia, Percutaneous Approach (ICD-10-PCS; principal; 2020-01-13)
PROC: 02HV33Z Insertion of Infusion Device into Superior Vena Cava, Percutaneous Approach (ICD-10-PCS; 2020-01-13)
PROC: B548ZZA Ultrasonography of Superior Vena Cava, Guidance (ICD-10-PCS; 2020-01-13)
PROC: B5181ZA Fluoroscopy of Superior Vena Cava using Low Osmolar Contrast, Guidance (ICD-10-PCS; 2020-01-13)
PROC: 5A09357 Assistance with Respiratory Ventilation, Less than 24 Consecutive Hours, Continuous Positive Airway Pressure (ICD-10-PCS; 2020-01-13)
PROC: 5A1D70Z Performance of Urinary Filtration, Intermittent, Less than 6 Hours Per Day (ICD-10-PCS; 2020-01-13)
PROC: 5A1D70Z Performance of Urinary Filtration, Intermittent, Less than 6 Hours Per Day (ICD-10-PCS; 2020-01-14)
PROC: 5A1D70Z Performance of Urinary Filtration, Intermittent, Less than 6 Hours Per Day (ICD-10-PCS; 2020-01-16)
PROC: 5A1D70Z Performance of Urinary Filtration, Intermittent, Less than 6 Hours Per Day (ICD-10-PCS; 2020-01-18)
DX: N17.9 Acute kidney failure, unspecified (principal); J96.22 Acute and chronic respiratory failure with hypercapnia; I50.42 Chronic combined systolic (congestive) and diastolic (congestive) heart failure; L03.116 Cellulitis of left lower limb; L03.115 Cellulitis of right lower limb; Z68.43 Body mass index [BMI] 50.0-59.9, adult; G93.40 Encephalopathy, unspecified; E87.4 Mixed disorder of acid-base balance; I13.2 Hypertensive heart and chronic kidney disease with heart failure and with stage 5 chronic kidney disease, or end stage renal disease; E83.51 Hypocalcemia; D63.8 Anemia in other chronic diseases classified elsewhere; E11.22 Type 2 diabetes mellitus with diabetic chronic kidney disease; Z66 Do not resuscitate; E66.01 Morbid (severe) obesity due to excess calories; E78.5 Hyperlipidemia, unspecified; E83.39 Other disorders of phosphorus metabolism; G89.29 Other chronic pain; G47.30 Sleep apnea, unspecified; M54.9 Dorsalgia, unspecified; B35.4 Tinea corporis; N18.6 End stage renal disease; I95.9 Hypotension, unspecified; M25.561 Pain in right knee; M10.9 Gout, unspecified; R55 Syncope and collapse; R59.0 Localized enlarged lymph nodes; I25.10 Atherosclerotic heart disease of native coronary artery without angina pectoris; I48.0 Paroxysmal atrial fibrillation; J44.9 Chronic obstructive pulmonary disease, unspecified; Z79.01 Long term (current) use of anticoagulants; Z79.899 Other long term (current) drug therapy; Z83.3 Family history of diabetes mellitus; Z87.11 Personal history of peptic ulcer disease; Z87.891 Personal history of nicotine dependence; Z95.1 Presence of aortocoronary bypass graft; Z88.8 Allergy status to other drugs, medicaments and biological substances; Z99.81 Dependence on supplemental oxygen; Z99.2 Dependence on renal dialysis
CPT/HCPCS: 36415; 36558; 36600; 71045; 71250; 76775; 76937; 80048; 80053; 80305; 81001; 82330; 82570; 82803; 82948; 83735; 84100; 84156; 84300; 84443; 85008; 85018; 85025; 85027; 86704; 86706; 87081; 87207; 87340; 92508; 92616; 93005; 93930; 93970; 93971; 94640; 94660; 94760; 97110; 97161; 97530; 97535; 99285; A9270; C1750; C1769; C1894; G0378; J1644; J3010; J7030; J7040; J7512; J7614; Q4081

== ENCOUNTER 2020-04-17 10:04 | Day surgery (SDC) | payer MEDICARE, MEDICAID ==
[~2020-04-17] VITALS: Ht 170.2 cm; Wt 111.6 kg
[2020-04-17] VITALS (13 sets, daily range): BP systolic 80–114; BP diastolic 50–78
[~2020-04-17 10:04] MED LIST changes: +ACET-1008 PO; +BISA10SU60 RC; -Bisacodyl Supp RC; +CARV-50 PO; -CARV25TA2 PO; +CYCL-394 PO; +DICL100G30 TOP; -DOCU-28 PO; -FOLI1TAB16 PO; -FURO-150 PO; +FURO40TA4 PO; +HYDR-4353 PO; +HYDR28CR14 TOP; +LOSA25TA96 PO; +MAGN400O6 PO; -METO50TA16 PO; +NA P230E; +NITR0.4T51 SL; -PANT40TA54 PO; +RIVA15TA PO; -thiamine tablet PO
[2020-04-17] MEDS ORDERED: METO50TA16 PO (10:42)
[2020-04-17] MEDS ORDERED: DILT-36 PO (10:42)
[2020-04-17] MEDS ORDERED: CALC667T6 PO (10:42)
[2020-04-17] MEDS ORDERED: AMIO100T4 PO (10:42)
[2020-04-17] MEDS ORDERED: ASCO500C17 PO (10:44)
[2020-04-17] MEDS ORDERED: FOLI0.8T22 PO (10:44)
[2020-04-17] MEDS ORDERED: BISA10SU62 RC (10:44)
[2020-04-17] MEDS ORDERED: ONDA4TAB6 PO (10:44)
[2020-04-17] MEDS ORDERED: normal saline 1000ml 1,000 ML IV SCH (10:50)
[2020-04-17] MEDS ORDERED: MIDAZolam 1mg/ml 10ml vial IV ONE (10:50)
[2020-04-17] MEDS ORDERED: fentaNYL/PF 50MCG/1 ML 2ML syringe IV ONE (10:50)
[2020-04-17 11:22] LABS: BASOPHILS # (AUTO) 0.1 X10'3 (0-0.2); EOSINOPHILS # (AUTO) 0.2 X10'3 (0-0.9); HEMATOCRIT 33.7 % (42.0-52.0); HEMOGLOBIN 10.7 g/dl (14.0-17.9); MEAN CORPUSCULAR HEMOGLOBIN 30.1 PG (27.0-31.0); MEAN CORPUSCULAR HGB CONC 31.7 g/dL (33.0-36.5); MONOCYTES # (AUTO) 1.5 X10'3 (0-0.9); NEUTROPHILS # (AUTO) 5.5 X10'3 (1.8-7.7)
[2020-04-17 11:24] LABS: BASOPHILS % (AUTO) 1.4 % (0-1); EOSINOPHILS % (AUTO) 2.4 % (0-6); LYMPHOCYTES # (AUTO) 1.8 X10'3 (1.1-4.8); LYMPHOCYTES % (AUTO) 19.4 % (21-51); MEAN PLATELET VOLUME 8.5 FL (7.4-10.4); MONOCYTES % (AUTO) 16.1 % (2-12); NEUTROPHILS % (AUTO) 60.7 % (42-75); PLATELET COUNT 637 X10'3 (140-440); RED BLOOD COUNT 3.54 X10'6 (4.70-6.10); WHITE BLOOD COUNT 9.1 X10'3 (4.5-11.0)
[2020-04-17 11:31] LABS: ALBUMIN 2.9 G/DL (3.4-5.0); ANION GAP 6 (8-16); BLOOD UREA NITROGEN 19 MG/DL (7-18); BUN/CREATININE RATIO 7.2 (5.4-32.0); CALCIUM 9.8 MG/DL (8.5-10.1); CHLORIDE 102 MMOL/L (99-107); CREATININE 2.65 MG/DL (0.60-1.10); GLUCOSE 83 MG/DL (70-104); POTASSIUM 5.1 MMOL/L (3.5-5.1); SODIUM 143 MMOL/L (135-145); TOTAL CARBON DIOXIDE 34.7 MMOL/L (24-32); eGFR 24 ML/MIN
[2020-04-17 12:14] LABS: TOTAL CELLS COUNTED 100
[2020-04-17 12:15] LABS: ANISOCYTOSIS 2+; PLATELET ESTIMATE INCREASED
== END 2020-04-17 15:55 ==
LOC: SSTAY O 10:04
PROVIDERS: ATTEND Internal Medicine Interventional Cardiology
DX: I48.91 Unspecified atrial fibrillation (principal); J44.9 Chronic obstructive pulmonary disease, unspecified; I25.10 Atherosclerotic heart disease of native coronary artery without angina pectoris; I13.0 Hypertensive heart and chronic kidney disease with heart failure and stage 1 through stage 4 chronic kidney disease, or unspecified chronic kidney disease; I50.9 Heart failure, unspecified; N18.9 Chronic kidney disease, unspecified; I42.9 Cardiomyopathy, unspecified; D64.9 Anemia, unspecified; I27.20 Pulmonary hypertension, unspecified; Z79.899 Other long term (current) drug therapy; Z79.01 Long term (current) use of anticoagulants; Z72.89 Other problems related to lifestyle; Z88.8 Allergy status to other drugs, medicaments and biological substances
CPT/HCPCS: 80048; 85025; 92960; 93005; 94799; J2250; J3010; J7030; 85007

== ENCOUNTER 2020-11-12 12:28 | Day surgery (SDC) | payer MEDICARE, MEDICAID ==
[~2020-11-12] VITALS: Ht 170.2 cm; Wt 96.6 kg
[~2020-11-12 12:28] MED LIST changes: +AMIO100T4 PO; -AMIO200T61 PO; -APIX5TAB3 PO; +ASCO500C17 PO; +BISA10SU62 RC; +CALC667T6 PO; -CARV-50 PO; -DICL100G30 TOP; +DILT-36 PO; -FERR325T7 PO; +FOLI0.8T22 PO; -FURO40TA4 PO; -LOSA25TA96 PO; +METO50TA16 PO; +ONDA4TAB6 PO
[2020-11-12] MEDS ORDERED: LIDOcaine 1% W/epiNEPHrine 1:200,000 10ml vial ONE (13:08)
[2020-11-12] MEDS ORDERED: heparin 1,000unit/ml 10ml vial 10 ML ONE (13:08)
[2020-11-12] MEDS ORDERED: cefazolin/dext.iso 2gm/100ml 100 ML IV ONE (13:10)
[2020-11-12 13:23] VITALS: BP 118/64
[2020-11-12] MEDS ORDERED: fentaNYL/PF 50MCG/1 ML 2ML syringe ONE (13:41)
[2020-11-12 14:20] VITALS: BP 130/75
[2020-11-12 14:35] VITALS: BP 130/70
== END 2020-11-12 14:54 ==
LOC: SSTAY O 12:28
PROVIDERS: ATTEND Preventive Medicine Aerospace Medicine
DX: T82.43XA Leakage of vascular dialysis catheter, initial encounter (principal); I13.2 Hypertensive heart and chronic kidney disease with heart failure and with stage 5 chronic kidney disease, or end stage renal disease; N18.6 End stage renal disease; I50.9 Heart failure, unspecified; I48.91 Unspecified atrial fibrillation; I42.9 Cardiomyopathy, unspecified; Z88.8 Allergy status to other drugs, medicaments and biological substances; Z79.899 Other long term (current) drug therapy; Z87.891 Personal history of nicotine dependence; Z83.3 Family history of diabetes mellitus; Y83.8 Other surgical procedures as the cause of abnormal reaction of the patient, or of later complication, without mention of misadventure at the time of the procedure; Y92.89 Other specified places as the place of occurrence of the external cause
CPT/HCPCS: 36581; 77001; C1750; C1769; J1644; J3010; A9270

== ENCOUNTER 2022-04-15 10:38 | Emergency (ER) | payer MEDICARE, MEDICAID ==
[~2022-04-15] VITALS: Ht 175.3 cm; Wt 94.0 kg
[~2022-04-15 10:38] MED LIST changes: -AMIO100T4 PO; -DILT-36 PO
[2022-04-15 10:40] VITALS: BP 94/61
[2022-04-15] MEDS ORDERED: CEPH250T PO (12:17)
[2022-04-15] MEDS ORDERED: CHOL4POW4 PO (13:53)
[2022-04-15] MEDS ORDERED: ALLO100T PO (13:53)
[2022-04-15] MEDS ORDERED: METO-411 PO (13:53)
[2022-04-15] MEDS ORDERED: METO200T49 PO (13:53)
[2022-04-15] MEDS ORDERED: AMIO200T61 PO (13:53)
[2022-04-15] MEDS ORDERED: DILT30TA2 PO (13:53)
== END 2022-04-15 12:27 | disposition home or self-care (01) ==
LOC: ER 10:39
DX: I87.8 Other specified disorders of veins (principal); L03.116 Cellulitis of left lower limb; I25.10 Atherosclerotic heart disease of native coronary artery without angina pectoris; I11.0 Hypertensive heart disease with heart failure; I50.9 Heart failure, unspecified; J44.9 Chronic obstructive pulmonary disease, unspecified; I48.91 Unspecified atrial fibrillation; G89.29 Other chronic pain; Z95.1 Presence of aortocoronary bypass graft; Z88.8 Allergy status to other drugs, medicaments and biological substances; Z79.899 Other long term (current) drug therapy
CPT/HCPCS: 73610; 93926; 99284

== ENCOUNTER 2022-04-15 13:15 | Day surgery (SDC) | payer MEDICARE, MEDICAID ==
[~2022-04-15] VITALS: Ht 175.3 cm; Wt 95.8 kg
[2022-04-15] VITALS (11 sets, daily range): BP systolic 81–98; BP diastolic 38–65
[~2022-04-15 13:15] MED LIST changes: +CEPH250T PO
[2022-04-15] MEDS ORDERED: MIDAZolam 1mg/ml 10ml vial IV ONE (13:45)
[2022-04-15] MEDS ORDERED: normal saline 1000ml 1,000 ML IV SCH (13:45)
[2022-04-15] MEDS ORDERED: fentaNYL/PF 50MCG/1 ML 2ML syringe IV ONE (13:45)
[2022-04-15] MEDS ORDERED: CHOL4POW4 PO (13:53)
[2022-04-15] MEDS ORDERED: METO-411 PO (13:53)
[2022-04-15] MEDS ORDERED: AMIO200T61 PO (13:53)
[2022-04-15] MEDS ORDERED: METO200T49 PO (13:53)
[2022-04-15] MEDS ORDERED: ALLO100T PO (13:53)
[2022-04-15] MEDS ORDERED: DILT30TA2 PO (13:53)
[2022-04-15 13:59] LABS: BASOPHILS % (AUTO) 0.4 % (0-1); EOSINOPHILS % (AUTO) 0.3 % (0-6); HEMATOCRIT 29.3 % (42.0-52.0); HEMOGLOBIN 9.4 g/dl (14.0-17.9); LYMPHOCYTES % (AUTO) 12.4 % (21-51); MEAN CORPUSCULAR HEMOGLOBIN 36.9 PG (27.0-31.0); MEAN CORPUSCULAR HGB CONC 32.3 g/dL (33.0-36.5); MEAN CORPUSCULAR VOLUME 114.4 FL (78-98); MEAN PLATELET VOLUME 8.1 FL (7.4-10.4); MONOCYTES # (AUTO) 0.8 X10'3 (0-0.9); MONOCYTES % (AUTO) 10.4 % (2-12); NEUTROPHILS # (AUTO) 6.1 X10'3 (1.8-7.7); NEUTROPHILS % (AUTO) 76.5 % (42-75); PLATELET COUNT 271 X10'3 (140-440); RED BLOOD COUNT 2.56 X10'6 (4.70-6.10); RED CELL DISTRIBUTION WIDTH 19.8 % (11.5-14.5)
[2022-04-15 14:01] LABS: ALBUMIN 2.6 G/DL (3.4-5.0); ANION GAP 6 (8-16); BLOOD UREA NITROGEN 22 MG/DL (7-18); CALCIUM 6.6 MG/DL (8.5-10.1); CHLORIDE 96 MMOL/L (99-107); CREATININE 5.53 MG/DL (0.60-1.10); GLUCOSE 82 MG/DL (70-104); POTASSIUM 3.4 MMOL/L (3.5-5.1); SODIUM 138 MMOL/L (135-145); TOTAL CARBON DIOXIDE 35.8 MMOL/L (24-32); eGFR 10 ML/MIN
[2022-04-15 14:36] LABS: ANISOCYTOSIS 2+; LARGE PLATELETS FEW; PLATELET ESTIMATE NORMAL
[2022-04-15 14:37] LABS: HYPOCHROMASIA 1+
--- NOTE | 2022-04-15 16:45 | NUR ---
Pt requests to wait for ride ([employer]). DC to home with [employer].
== END 2022-04-15 16:45 | disposition home or self-care (01) ==
LOC: SSTAY O 13:15
PROVIDERS: ATTEND Student in an Organized Health Care Education/Training Program
DX: I48.0 Paroxysmal atrial fibrillation (principal); I13.2 Hypertensive heart and chronic kidney disease with heart failure and with stage 5 chronic kidney disease, or end stage renal disease; N18.6 End stage renal disease; I50.9 Heart failure, unspecified; I25.10 Atherosclerotic heart disease of native coronary artery without angina pectoris; J44.9 Chronic obstructive pulmonary disease, unspecified; I27.20 Pulmonary hypertension, unspecified; D64.9 Anemia, unspecified; F17.290 Nicotine dependence, other tobacco product, uncomplicated; Z72.89 Other problems related to lifestyle; Z98.890 Other specified postprocedural states; Z88.8 Allergy status to other drugs, medicaments and biological substances; Z99.2 Dependence on renal dialysis; Z79.899 Other long term (current) drug therapy
CPT/HCPCS: 36415; 80048; 85025; 85610; 92960; 93005; J2250; J3010; J7030; 85008; A4620